=== PATIENT | female | born 1950 | race Caucasian/White ===

== ENCOUNTER 2020-07-16 16:57 | Outpatient (CLI) | payer BC, MEDICARE, SELFPAY | END 2020-07-16 16:58 | disposition home or self-care (01) | LOC: LAB 17:00 | PROVIDERS: Visit Provider Nurse Practitioner Family | DX: N30.01 Acute cystitis with hematuria (principal) | CPT/HCPCS: 87086 ==

== ENCOUNTER 2020-12-08 11:31 | Inpatient (IN) | payer BC, MEDICARE, SELFPAY ==
[2020-12-08] VITALS (22 sets, daily range): BP systolic 112–191; BP diastolic 75–112; PULSE 84–128; RESP 16–22; TEMP 36.4–36.8; O2SAT 91–99; BMI 41.0
--- NOTE | 2020-12-08 | SCC_ITS ---
Procedure Done: 1. Cystoscopy, LEFT: Retrograde, ureteroscopy, laser, stent 42.6 seconds of fluoroscopic guidance, for a cumulative dose of 23.88 mGy, was provided to Dr. Araujo by the radiology department. C-arm images of the abdomen were saved for the patient's permanent record. [facility]
--- NOTE | 2020-12-08 11:49 | CTR_ITS ---
PROCEDURE INFORMATION: Exam: CT Abdomen And Pelvis Without Contrast Exam date and time: 12/08/2020 12:35 PM Age: 70 years old Clinical indication: Abdominal pain; Left; Prior surgery; Surgery date: 6+ months; Surgery type: Appy; Patient HX: C/O L flank pain and hematuria; Additional info: Left flank pain. Hematuria TECHNIQUE: Imaging protocol: Computed tomography of the abdomen and pelvis without contrast. Radiation optimization: All CT scans at this facility use at least one of these dose optimization techniques: automated exposure control; mA and/or kV adjustment per patient size (includes targeted exams where dose is matched to clinical indication); or iterative reconstruction. COMPARISON: No relevant prior studies available. RADIATION DOSE METRICS: Total DLP (mGy-cm): 1773.37 FINDINGS: Lungs: There is mosaic pattern of attenuation of the lungs with paraseptal thickening at the lung bases, suggestive of mild pulmonary edema. Pneumonia should be excluded clinically. Heart: Mildly enlarged heart. Coronary atherosclerotic calcifications seen. No pericardial effusion. Liver: Normal. No mass. Gallbladder and bile ducts: Multiple gallstones are present. No pericholecystic inflammatory changes to suggest cholecystitis. Pancreas: Normal. No ductal dilation. Spleen: Normal. No splenomegaly. Adrenal glands: Normal. No mass. Kidneys and ureters: Tiny cortical calcifications noted in the right lower kidney. There is a 0.4 cm obstructing stone in the left distal ureter, resulting in mild hydroureteronephrosis and stranding of the surrounding fat. An additional nonobstructing stone measuring 0.2 cm is seen in the left lower kidney. Stomach and bowel: There is diverticulosis without evidence of diverticulitis. Appendix: There has been an appendectomy. Intraperitoneal space: Unremarkable. No free air. No significant fluid collection. Vasculature: Mild diffuse atherosclerotic disease is present. Lymph nodes: Unremarkable. No enlarged lymph nodes. Urinary bladder: Unremarkable as visualized. Reproductive: Unremarkable as visualized. Bones/joints: Degenerative changes of the spine seen. Old healed fracture deformity of the left inferior pubic ramus noted. Soft tissues: A small fat containing umbilical hernia is present. CT/CT kidney stone [id number] IMPRESSION: Obstructing stone in the left distal ureter, resulting in mild hydronephrosis. Radiation Dose CTDIVOL = (mGy): DLP = 1773.37 (mGy-cm)
--- NOTE | 2020-12-08 11:52 | ECG_ITS ---
[facility] Test Date: 2020-12-08 Pat Name: Bailey Gayle Department: Room: Gender: Female Line Fisher: : 1950 Requested By: Ortiz Agustin Order Number: [id number] Danuta MD: PETER ORTIZ Measurements Intervals [place] Rate: 98 P: MD: QRS: -12 QRSD: 98 T: 20 QT: 333 QTc: 426 Interpretive Statements SINUS RYTHM ABNORMAL RHYTHM ECG Compared to ECG 04/19/2018 09:39:43 NO CHCANGE Electronically Signed On 12-08-2020 21:17:03 GROUNDS AND NURSERY SPECIALIST by PETER ORTIZ [id number]
--- NOTE | 2020-12-08 11:54 | ED_ITS ---
HPI - Abdominal Pain General: Chief Complaint: Abdominal Pain Stated Complaint: Blood in Urine/ Pain on lt side Time Seen by Provider: 12/08/20 11:44 History of Present Illness: HPI narrative: The patient is a 70-year-old female who comes to the ER complaining of hematuria since last night and nausea and vomiting as well as left flank pain. She has had UTIs multiple times with hematuria in the past. This morning she took a ciprofloxacin to try to help but she began to feel nauseous and vomit. She took her blood pressure medicines this morning but says her blood pressure was elevated and knew she had to come to the ER. Denies chest pain and shortness of breath. She also has A. fib and takes Johan DIAZ elicited complaint: abdominal pain Pertinent past history: past UTI Pain Consistency: constant Location: L flank Severity: similar to previous episodes Quality: sharp Radiation: L flank Exacerbating factors: nothing Associated Symptoms: Reports nausea and vomiting Review of Systems General: Reports: 10 or more systems reviewed and unremarkable except in HPI and below Const: Denies: fatigue Eyes: Denies: change in vision, blurry vision or eye redness ENMT: Denies: throat pain, swelling of lips/tongue, ear or mastoid pain or nasal congestion Card: Denies: chest pain, palpitations, irregular heart rhythm, edema, dyspnea on exertion or orthopnea Resp: Denies: dyspnea, productive cough or non-productive cough GI: Reports: nausea and vomiting : Reports: flank pain; Denies: difficulty voiding, urinary frequency or urinary urgency Musc: Denies: neck pain, back pain, extremity pain, joint pain, joint redness, limited range of motion or muscle weakness Skin/Breast: Denies: rash, pruritus, erythema, skin pain or skin tenderness Neuro: Denies: headache(s), numbness in extremities, weakness in extremities, sensory changes, difficulty walking, dizziness, confusion or Slurred speech present Psych: Denies: anxiety or depression Endo: Denies: polyuria All/Imm: Denies: urticaria, throat swelling or tongue swelling Physical Exam Const: COMMON NORMALS: no acute distress, average body habitus, patient oriented x3, no limitations, healthy appearing, alert and well nourished GENERAL APPEARANCE: cooperative, comfortable, well kempt and well developed ORIENTATION/CONSCIOUSNESS: Yes awake, Yes oriented to person, Yes oriented to place and Yes oriented to time HENMT: COMMON NORMALS: normocephalic, external ears normal and Normal external nose present HEAD & SCALP: normal to inspection and normocephalic NOSE: Normal external nose present EXTERNAL EAR: Yes external ears normal MOUTH: Normal oral and palatal mucosa present THROAT: posterior oropharynx normal Eye: COMMON NORMALS: Equal, round and reactive pupils present and EOMs intact bilaterally GENERAL EYE: appearance normal, both eyes and all related structures PUPIL: Yes Equal, round and reactive pupils present Neck/C-Spine: COMMON NORMALS: full ROM, no lymphadenopathy, no meningeal signs and no JVD GENERAL: Yes normal visual inspection Lymph: LYMPHATIC: no lymphadenopathy noted Chest: COMMONS NORMALS: normal inspection of the chest and normal palpation of entire chest wall Resp: COMMON NORMALS: normal respiratory effort, No retractions, No use of accessory muscles, clear to auscultation bilaterally and percussion normal EFFORT & INSPECTION: Yes able to speak in complete sentences AUSCULTATION: clear to auscultation bilaterally PERCUSSION: percussion normal Cardio: COMMON NORMALS: no JVD, regular rate, regular rhythm, S1 normal heart sound present, S2 normal heart sound present and Peripheral pulses 2+ throughout RATE: regular rate RHYTHM: regular rhythm HEART SOUNDS: S1 normal heart sound present and S2 normal heart sound present PERIPHERAL PULSES: Peripheral pulses 2+ throughout GI: COMMON NORMALS: Normal to inspection, nondistended, normoactive bowel sounds present, Soft to palpation, non-tender and no masses INSPECTION: Yes normal to inspection PALPATION: Yes Soft to palpation : OTHER: Tenderness to left flank. Back/Pelvis: COMMON NORMALS: thoracic and lumbar spine normal to inspection, no thoracic nor lumbar tenderness and thoraco-lumbar ROM normal Extremity: COMMON NORMALS: normal to inspection, full ROM, capillary refill normal, no joint enlargement and no pedal edema GENERAL: Yes normal exam except as noted Neuro: COMMON NORMALS: patient oriented x3, CN's II-XII intact bilaterally, moves all extremities, no focal motor deficits, no sensory deficits noted and gait normal SENSORIUM/ORIENTATION: Yes alert, Yes oriented to person, Yes oriented to place and Yes oriented to time MENINGEAL SIGNS: Yes no meningeal signs Psych: COMMON NORMALS: mental status grossly normal, Normal thought process present, cooperative, normal affect and speech normal APPEARANCE: Yes well kempt ATTITUDE: Yes calm SPEECH: Yes normal speech THOUGHT PROCESS: Normal thought process present Skin: COMMON NORMALS: no rashes or lesions noted GENERAL SKIN EXAM: no rashes or lesions noted Course Vital Signs: Vital signs: Vital Signs Temperature 97.5 F L 12/08/20 11:35 Pulse Rate 101 H 12/08/20 14:26 Respiratory Rate 18 12/08/20 14:26 Blood Pressure 150/85 12/08/20 14:26 Pulse Oximetry 99 12/08/20 14:26 MDM - Abdominal Pain MDM Narrative: Medical decision making narrative: The patient comes in and complains of significant left flank pain. She does have a 4 mm distal ureteral stone. Also significant lab abnormalities white count 16.3, creatinine 1.1, BUN 33, lactic acidosis at 4.3. She also has felt so nauseous and had episodes where she dips down to 80% saturation on room air. She was placed on 2 L nasal cannula oxygen and has been fine. Discussed with Dr. Guerrero who will accept to the CSU. Dr. Araujo will follow this patient upstairs. Lab Data: Labs: Lab Results 12/08/20 12/08/20 12/08/20 Range/Units 12:27 12:38 12:38 WBC (4.0-10.0) 10^3/ uL RBC (4.1-5.3) 10^6/u L Hgb (11.5-15.3) g/dL Hct (37.0-47.0) % MCV (81-99) fL MCH (28.0-34.0) pg MCHC (30.0-36.0) g/dL RDW (12.1-15.1) % Plt Count (130-400) 10^3/c mm MPV (7.4-10.4) fL Neut % (Auto) % Lymph % (Auto) % Barn[place] % (Auto) % Eos % (Auto) % Baso % (Auto) % Neut # (Auto) (1.8-7.7) 10^3/u L Lymph # (Auto) (0.8-4.8) 10^3/u L Barnwell # (Auto) (0.2-0.9) 10^3/u L Eos # (Auto) (0.0-0.8) 10^3/u L Baso # (Auto) (0.0-0.1) 10^3/u L Nucleated RBC % (a uto) % Nucleated RBCs # /100WBC Sodium 139 (136-145) mmol/L Potassium 4.1 (3.5-5.1) mmol/L Chloride 102 (98-107) mmol/L Carbon Dioxide 19 L (22-29) mmol/L Anion Gap 22.1 H (5-19) BUN 33 H (8-23) mg/dL Creatinine 1.1 H (0.5-0.9) mg/dL GFR Calculation 49.4 L (90-130) mL/min Glucose 186 H (65-115) mg/dL Calculated Osmolal ity 300 H (285-295) mOsm/k g Lactate 4.3 H* (0.5-2.2) mmol/L Calcium 9.4 (8.5-10.5) mg/dL Total Bilirubin 0.5 (0.15-1.2) mg/dL AST 28 (0-32) U/L ALT 39 H (0-33) U/L Alkaline Phosphata se 94 (35-105) IU/L Total Protein 7.4 (6.6-8.7) g/dL Albumin 4.1 (3.5-5.2) g/dL Globulin 3.3 (1.3-4.6) g/dL Lipase 74 H (13-60) U/L Urine Color [place] (Yellow) Urine Appearance Sl hazy (CLEAR) Urine pH 5 (5-7) Ur Specific Gravit y 1.020 (1.005-1.030) Urine Protein TNP Urine Glucose (UA) TNP Urine Ketones TNP Urine Blood TNP Urine Nitrate TNP Urine Bilirubin TNP Prot Sulfosalicyli c Acd Positive (Negative) Urine Urobilinogen TNP Ur Leukocyte Danae ase TNP Urine RBC >100 H (0-2) /hpf Urine WBC 5-10 H (0-5) /hpf Ur Squamous Epith Cells None (0-5) /hpf Amorphous Sediment Not Reportable Urine Bacteria 2+ H (NONE) /hpf 12/08/20 Range/Units 13:10 WBC 16.3 H (4.0-10.0) 10^3/ uL RBC 4.26 (4.1-5.3) 10^6/u L Hgb 12.6 (11.5-15.3) g/dL Hct 39.8 (37.0-47.0) % MCV 93.4 (81-99) fL MCH 29.6 (28.0-34.0) pg MCHC 31.7 (30.0-36.0) g/dL RDW 16.8 H (12.1-15.1) % Plt Count 305 (130-400) 10^3/c mm MPV 9.8 (7.4-10.4) fL Neut % (Auto) 76.1 % Lymph % (Auto) 12.3 % [place] % (Auto) 6.3 % Eos % (Auto) 0.3 % Baso % (Auto) 0.6 % Neut # (Auto) 12.42 H (1.8-7.7) 10^3/u L Lymph # (Auto) 2.0 (0.8-4.8) 10^3/u L Barn[place] # (Auto) 1.0 H (0.2-0.9) 10^3/u L Eos # (Auto) 0.1 (0.0-0.8) 10^3/u L Baso # (Auto) 0.1 (0.0-0.1) 10^3/u L Nucleated RBC % (a uto) 0 % Nucleated RBCs # 0.0 /100WBC Sodium (136-145) mmol/L Potassium (3.5-5.1) mmol/L Chloride (98-107) mmol/L Carbon Dioxide (22-29) mmol/L Anion Gap (5-19) BUN (8-23) mg/dL Creatinine (0.5-0.9) mg/dL GFR Calculation (90-130) mL/min Glucose (65-115) mg/dL Calculated Osmolal ity (285-295) mOsm/k g Lactate (0.5-2.2) mmol/L Calcium (8.5-10.5) mg/dL Total Bilirubin (0.15-1.2) mg/dL AST (0-32) U/L ALT (0-33) U/L Alkaline Phosphata se (35-105) IU/L Total Protein (6.6-8.7) g/dL Albumin (3.5-5.2) g/dL Globulin (1.3-4.6) g/dL Lipase (13-60) U/L Urine Color (Yellow) Urine Appearance (CLEAR) Urine pH (5-7) Ur Specific Gravit y (1.005-1.030) Urine Protein Urine Glucose (UA) Urine Ketones Urine Blood Urine Nitrate Urine Bilirubin Prot Sulfosalicyli c Acd (Negative) Urine Urobilinogen Ur Leukocyte Danae ase Urine RBC (0-2) /hpf Urine WBC (0-5) /hpf Ur Squamous Epith Cells (0-5) /hpf Amorphous Sediment Urine Bacteria (NONE) /hpf Discharge Plan Discharge Patient Disposition: Admitted As Inpatient Clinical Impression: Ureterolithiasis, Acidosis, lactic, Acute kidney injury Condition: Stable Coding Level of Care Code 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
[2020-12-08] MEDS: cloNIDine 0.1 mg Tablet PO (12:14)
[2020-12-08] MEDS: ondansetron 2 mg/ML SDV 2 mL 4 MG IVP ×2 (12:35→16:25)
[2020-12-08] MEDS: sodium chloride 0.9% 1,000 ML 999 ML IV (12:36)
[2020-12-08] MEDS: levofloxacin-dextrose 5 % 500 MG/100 ML PREMIX 100 MG IV (12:39)
[2020-12-08 13:16] LABS: Basophils # 0.1 10^3/uL (0.0-0.1); Basophils % 0.6 %; Eosinophils # 0.1 10^3/uL (0.0-0.8); Eosinophils % 0.3 %; Hematocrit 39.8 % (37.0-47.0); Hemoglobin 12.6 g/dL (11.5-15.3); Lymphocytes % 12.3 %; Mean Corpuscular HGB Conc 31.7 g/dL (30.0-36.0); Mean Corpuscular Hemoglobin 29.6 pg (28.0-34.0); Mean Corpuscular Volume 93.4 fL (81-99); Mean Platelet Volume 9.8 fL (7.4-10.4); Monocytes % 6.3 %; Neutrophils # 12.42 10^3/uL (1.8-7.7); Neutrophils % 76.1 %; Nucleated Red Blood Cells % 0 %; Platelet Count 305 10^3/cmm (130-400); Red Blood Count 4.26 10^6/uL (4.1-5.3); Red Cell Distribution Width 16.8 % (12.1-15.1); White Blood Count 16.3 10^3/uL (4.0-10.0)
[2020-12-08] MEDS: promethazine 25 mg/mL SDV 1 mL IM (13:17)
[2020-12-08 13:28] LABS: Urine Appearance SL Hazy (CLEAR); Urine Color Orange (Yellow); pH Urine 5 (5-7)
[2020-12-08 13:30] LABS: Add Urine Microscopic? YES; Sulfosalicylic Acid Urine Positive (Negative)
[2020-12-08 13:31] LABS: Add Urine Culture? Yes; Bacteria Urine 2+ /hpf; RBC Urine >100 /hpf (0-2)
[2020-12-08 13:38] LABS: Alanine Aminotransferase 39 U/L (0-33); Albumin Level 4.1 g/dL (3.5-5.2); Alkaline Phosphatase 94 IU/L (35-105); Aspartate Amino Transferase 28 U/L (0-32); Blood Urea Nitrogen 33 mg/dL (8-23); Calcium 9.4 mg/dL (8.5-10.5); Carbon Dioxide 19 mmol/L (22-29); Chloride 102 mmol/L (98-107); Globulin 3.3 g/dL (1.3-4.6); Glomerular Filtration Rate 49.4 mL/min (90-130); Glucose 186 mg/dL (65-115); Lipase 74 U/L (13-60); Osmolality Calculated 300 mOsm/kg (285-295); Sodium 139 mmol/L (136-145); Total Bilirubin 0.5 mg/dL (0.15-1.2); Total Protein 7.4 g/dL (6.6-8.7)
[2020-12-08 13:47] LABS: Anion Gap 22.1 (5-19); Potassium 4.1 mmol/L (3.5-5.1)
[2020-12-08 13:49] LABS: Lactate (Lactic Acid level) 4.3 mmol/L (0.5-2.2)
[2020-12-08] MEDS: morphine 4 mg/mL SDV 1 mL 2 MG IVP ×3 (14:43→23:48)
--- NOTE | 2020-12-08 14:48 | P.HP_ITS ---
Providers/Chief Complaint Admitting Physician: Thai Guerrero Chief Complaint: Blood in Urine/ Pain on lt side History of Present Illness Bailey Gayle is a 70 year old female with PMH of DM ,HTN, Hypothyroidism,2nd ry adrenal insufficiency s/p Pituitary recestion for pituitary tumor came in with c/o not felling well since yesterday by the evening she started having hematuria as well as nausea she also started having left lower flank pain which was radiating to her lt groin. Upon arrival in the ER she was worked up for above mention complain. Imaging studies: C.T abdomen and Pelvis : Kidneys and ureters: Tiny cortical calcifications noted in the right lower kidney. There is a 0.4 cm obstructing stone in the left distal ureter, resulting in mild hydroureteronephrosis and stranding of the surrounding fat. An additional nonobstructing stone measuring 0.2 cm is seen in the left lower kidney. EKG: ATRIAL FIBRILLATION , Rate: 98 Pertinent Labs : WBC: 16.3 , Lactate : 4.3 , Lipase: 74 Urine analysis : Urine RBC: >100, Urine WBC: 5-10 ECA Medications: 1 L normal saline , Levofloxacin 750 MG I.V * 1 DOSE Urology was consulted by Review of Systems Const: Denies: fever(s), chills, body aches, change in appetite or diaphoresis Card: Denies: palpitations, edema, swelling of feet/ankles, dyspnea on exertion, orthopnea or leg pain with exertion Resp: Denies: dyspnea, productive cough, wheezing or pain on inspiration GI: Denies: abdominal pain, vomiting, diarrhea or constipation Musc: Denies: extremity pain or extremity swelling Neuro: Denies: headache(s), difficulty walking or confusion Medications/Allergies Home Medications Medication Instructions Recorded Confirmed Last Taken Type Urinary Pain Relief See Rx Instructions .ROUTE .COMPLEX 12/08/20 12/08/20 12/08/20 History Vitamin D3 1 tab PO DAILY@0600 12/08/20 12/08/20 12/08/20 History apixaban [Eliquis] 5 mg PO BID@0600,1800 12/08/20 12/08/20 12/08/20 History atorvastatin 40 mg PO DAILY@1800 12/08/20 12/08/20 12/07/20 History glipizide 5 mg PO DAILY 12/08/20 12/08/20 12/07/20 History irbesartan-hydrochlorothiazide 1 tab PO DAILY@0600,1800 12/08/20 12/08/20 12/08/20 History levothyroxine 125 mcg PO DAILY@0600 12/08/20 12/08/20 12/08/20 History metformin 1,000 mg PO BID@0600,1800 12/08/20 12/08/20 12/08/20 History metoprolol tartrate 25 mg PO BID@0600,1800 12/08/20 12/08/20 12/08/20 History prednisone See Rx Instructions .ROUTE .COMPLEX 12/08/20 12/08/20 12/08/20 Hi story Allergies Allergy/AdvReac Type Severity Reaction Status Date / Time RAFA Inhibitors Allergy Unknown Unknown Verified 01/22/20 12:02 Vitals/I&O/Wt Last Vital Signs Temp 97.5 F L 12/08/20 11:35 Pulse 95 12/08/20 14:47 Resp 20 H 12/08/20 14:47 BP 134/90 12/08/20 14:47 Pulse Ox 96 12/08/20 14:47 12/07/20 12/08/20 12/08/20 22:59 06:59 14:59 Intake Total 100 / 100 Balance 100 / 100 Weight last 48 hrs Weight 95.254 kg Physical Exam Const: COMMON NORMALS: patient oriented x3 HENMT: COMMON NORMALS: normocephalic, atraumatic and external ears normal HEAD & SCALP: normocephalic and atraumatic Resp: COMMON NORMALS: normal respiratory effort and clear to auscultation bilaterally EFFORT & INSPECTION: Yes symmetric chest movement AUSCULTATION: clear to auscultation bilaterally Cardio: COMMON NORMALS: regular rate, regular rhythm, S1 normal heart sound present, S2 normal heart sound present, No gallops present (Cardio), No murmurs present (Cardio), No rub (Cardio) and Peripheral pulses 2+ throughout RATE: regular rate RHYTHM: regular rhythm HEART SOUNDS: S1 normal heart sound present and S2 normal heart sound present PERIPHERAL PULSES: Peripheral pulses 2+ throughout GI: COMMON NORMALS: Soft to palpation and non-tender AUSCULTATION: Yes normoactive bowel sounds PALPATION: Yes Soft to palpation and Yes No hepatosplenomegaly present RECTAL EXAM: deferred : OTHER: Lt CVA Tenderness Extremity: COMMON NORMALS: no clubbing, cyanosis or edema and no pedal edema Neuro: COMMON NORMALS: patient oriented x3 Data : 12/08/20 13:10 12/08/20 12:38 A&P Assessment and plan (1) Sepsis: Uro Sepsis WBC: 16.3 , Lactate : 4.3,Tachycardia, and a source Blood culture Urine Culture Repeat Lactic acid Appreciate Urology rec Ceftriaxone 2gm q24 h daily I.V Hydration Pain Control Status: Acute (2) Acute pyelonephritis: Plan 1 Status: Acute (3) UTI (urinary tract infection): Status: Acute (4) Ureterolithiasis: Status: Acute (5) Acute kidney injury: Baseline SCR is unknown Current SCR : 1.1 Monitor BMP Contnue I.V Hydration Status: Acute (6) Atrial fibrillation: Currently rate controlled. Continue M.T 25 MG PO BID Continue Eliquis Status: Acute (7) HTN (hypertension): Status: Acute (8) Diabetes: LDSSI FSG Status: Acute (9) Hypothyroidism: Levothyroxine 125mcg po daily Status: Acute (10) Adrenal insufficiency: 2ndry Adrenal Insufficiency: Prednisone 5 mg PO Daily am and 2.5 mg po evening Status: Acute (11) HEATHER (obstructive sleep apnea): CPAP at night Status: Acute Additional A&P Information DVT PPX: Eliquis Code Status:Full code Disposition :Home Attestations Medical Necessity Statement*: Patient needs to be in hospital for the management of Urosepsis.Anticipated LOS greater then 2 midnights. 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
[2020-12-08] MEDS: cefTRIAXone 2,000 MG in sodium chloride 0.9% (plus) 50 ML 100 MG IV (15:22)
--- NOTE | 2020-12-08 15:22 | P.CONIM_ITS ---
Providers/Reason For Consult Consulting Physican/Specialty*: Urology/Araujo Reason for Consult*: Obstructing left distal ureteral stone with concern for sepsis History of Present Illness History of Present Illness Bailey Gayle is a 70 year old female who presented to the emergency department was discovered to have an obstructing 4 mm left distal ureteral stone complicated by evidence of UTI possible sepsis. Last night she started having some urgency and frequency and discomfort in the bladder area. She took some Azo-Standard. Additional symptoms included left flank pain, gross hematuria, malaise. Further complicating the scenario is that she has chronic adrenal insufficiency and is on steroid replacement therapy. EKG today showed atrial fibrillation. She is on chronic Eliquis. Initial plans were to place her on the hospitalist service for observation due to chronic kidney disease, poor control of pain etc. but with evidence of infection and obstruction I was consulted and recommended emergent stent placement. We also reviewed the possibility of trying to go after the stone if everything goes very well hemodynamically at time of the procedure but with any concerns simply place a stent and deal with the stone later. All of this was explained in detail to the patient and her son. Review of Systems Const: Reports: malaise; Denies: fever(s) or chills Eyes: Denies: change in vision or blurry vision ENMT: Denies: throat pain Card: Denies: chest pain or palpitations Resp: Denies: dyspnea, productive cough or wheezing GI: Reports: abdominal pain and nausea; Denies: coffee ground emesis : Reports: flank pain, dysuria, urinary frequency and urinary urgency Musc: Denies: joint redness or joint warmth Skin/Breast: Denies: rash or pruritus Neuro: Denies: headache(s), confusion, Slurred speech present or seizure-like activity Psych: Denies: anxiety or memory loss Endo: Denies: polyuria or flushing Johnnie/Lymph: Denies: easy bruising or easy bleeding All/Imm: Denies: urticaria or acute wheezing Meds/Allergies Home Medications and Allergies Home Medications Medication Instructions Recorded Confirmed Last Taken Type Urinary Pain Relief See Rx Instructions .ROUTE .COMPLEX 12/08/20 12/08/20 12/08/20 History Vitamin D3 1 tab PO DAILY@0600 12/08/20 12/08/20 12/08/20 History apixaban [Eliquis] 5 mg PO BID@0600,1800 12/08/20 12/08/20 12/08/20 History atorvastatin 40 mg PO DAILY@1800 12/08/20 12/08/20 12/07/20 History glipizide 5 mg PO DAILY 12/08/20 12/08/20 12/07/20 History irbesartan-hydrochlorothiazide 1 tab PO DAILY@0600,1800 12/08/20 12/08/20 12/08/20 History levothyroxine 125 mcg PO DAILY@0600 12/08/20 12/08/20 12/08/20 History metformin 1,000 mg PO BID@0600,1800 12/08/20 12/08/20 12/08/20 History metoprolol tartrate 25 mg PO BID@0600,1800 12/08/20 12/08/20 12/08/20 History prednisone See Rx Instructions .ROUTE .COMPLEX 12/08/20 12/08/20 12/08/20 History Allergies Allergy/AdvReac Type Severity Reaction Status Date / Time RAFA Inhibitors Allergy Unknown Unknown Verified 01/22/20 12:02 PFSH Acute PFSH: Medical History (Updated 12/08/20 @ 18:37 by Milton Araujo MD) Acute kidney injury Adrenal insufficiency Atrial fibrillation Diabetes Hypothyroidism HEATHER (obstructive sleep apnea) Surgical History (Updated 12/08/20 @ 18:41 by Milton Araujo MD) History of appendectomy History of cataract surgery Family History (Updated 12/08/20 @ 18:41 by Milton Araujo MD) Other CAD (coronary artery disease) Diabetes Social History (Updated 12/08/20 @ 18:40 by Milton Araujo MD) Smoking and tobacco status: never smoked Alcohol intake: never Marital status: / Vitals/I&O/Wt Last Vital Signs Temp 97.5 F L 12/08/20 11:35 Pulse 95 12/08/20 14:47 Resp 20 H 12/08/20 14:47 BP 134/90 12/08/20 14:47 Pulse Ox 96 12/08/20 14:47 12/08/20 12/08/20 12/08/20 06:59 14:59 22:59 Intake Total 100 / 100 Balance 100 / 100 Weight last 48 hrs Weight 210 lb Physical Exam Const: COMMON NORMALS: no acute distress, alert and well nourished GENERAL APPEARANCE: cooperative, well kempt, well developed and ill appearing ORIENTATION/CONSCIOUSNESS: not confused OTHER: Truncal obesity HENMT: COMMON NORMALS: normocephalic and atraumatic HEAD & SCALP: normocephalic and atraumatic Eye: COMMON NORMALS: conjunctivae normal and no scleral icterus CON JUNCTIVA: Yes conjunctivae normal Neck/C-Spine: COMMON NORMALS: full ROM and no JVD GENERAL: Yes normal visual inspection Lymph: LYMPHATIC: no lymphadenopathy noted and no lymphedema noted Chest: CHEST: Yes Symmetrical chest wall rise Resp: COMMON NORMALS: normal respiratory effort EFFORT & INSPECTION: No labored and No Actively coughing Cardio: COMMON NORMALS: no JVD, regular rate and No murmurs present (Cardio) RATE: regular rate GI: COMMON NORMALS: Soft to palpation PALPATION: Yes Soft to palpation and Yes Tenderness to palpation present (GI) Details: LLQ and LUQ : COMMON NORMALS: Yes normal external appearance and Yes normal appearance of the vagina BLADDER/KIDNEY EXAM: Yes CVA tenderness EXTERNAL FEMALE EXAM: Yes normal appearance of the urethra Back/Pelvis: GENERAL BACK: Yes CVA tenderness CVA tenderness: left Extremity: COMMON NORMALS: no clubbing, cyanosis or edema Neuro: COMMON NORMALS: no focal motor deficits SENSORIUM/ORIENTATION: Yes alert Psych: COMMON NORMALS: mental status grossly normal APPEARANCE: Yes grossly normal and Yes well kempt ATTITUDE: Yes calm and Yes engaged Skin: COMMON NORMALS: no rashes or lesions noted and no jaundice GENERAL SKIN EXAM: no rashes or lesions noted Data Other Data: Attestation for Other Data: I personally reviewed and interpreted the following: Other data: CT scan A&P Assessment and plan (1) Acute pyelonephritis: White count 16, too numerous to count white cells, lactic acid of 4+ complicated by obstructing left distal ureteral stone with obstruction. Status: Acute (2) Ureterolithiasis: 4 mm left distal ureteral stone with obstruction. To the operating room emergently for stent placement, possible ureteroscopy stone extraction pending hemodynamic status at that time. Status: Acute (3) Atrial fibrillation: Status: Acute (4) Adrenal insufficiency: Status: Acute (5) Diabetes: Status: Acute (6) HTN (hypertension): Status: Acute (7) Acidosis, lactic: Status: Acute (8) Acute kidney injury: Status: Acute (9) HEATHER (obstructive sleep apnea): Status: Acute (10) Sepsis: Status: Acute Consult Attestations Medical Necessity Statement: Requires emergency surgical intervention for obstructing left distal ureteral stone with evidence of infection. Coding Level of Care Code Acute Criminology Professor for [facility] Fwd Diagnoses Acute pyelonephritis N10 Ureterolithiasis N20.1 Atrial fibrillation I48.91 Adrenal insufficiency E27.40 Diabetes E11.9 HTN (hypertension) I10 Acidosis, lactic E87.2 Acute kidney injury N17.9 HEATHER (obstructive sleep apnea) G47.33 Sepsis A41.9
--- NOTE | 2020-12-08 16:00 | ANES.PREANE2 ---
Pre-Anesthetic Assessment Pre-Anesthetic Assessment: Height/Weight: Height 1.52 m Weight 95.254 kg Temp Pulse Resp BP Pulse Ox 97.5 F L 95 20 H 134/90 96 12/08/20 11:35 12/08/20 14:47 12/08/20 14:47 12/08/20 14:47 12/08/20 14:47 Preop Diagnosis: Utereteral stone Proposed Procedure: Operation Date: 12/08/20 17:00 Proposed Procedures p Cystoscopy(Not Applicable) - Milton Araujo MD s Ureteral Stent Placement(Not Applicable) - Milton Araujo MD Familial anesthetic complications: None Last intake: NPO > 8 hrs Social: Social History: No alcohol and No tobacco Exam: Pre-Anes Outpt Exam: alert, oriented x 3, clear to auscultation bilaterally and regular rate & rhythm Airway: MP: 4 Dentition: Full Additional comments: poor mouth opening, large neck Pulmonary: Pulmonary: Sleep apnea CV/HEM: CV/HEM: Afib (on eliquis) and HTN Metabolic: Metabolic: DM, Morbid obesity and Thyroid Comments: pituitary --> adrenal insufficiency --> takes steroids Neuropsych: Neuropsych: Seizure Anesthetic Plan: ASA status: 4E Anesthesia: General Other: Patient was already given hydrocortisone 100 mg IV in the ER Risk of > 500 ml blood loss (7ml/kg in children): No Meds/Allergies Current Medications: Current Medications Generic Name Dose Route Start Last Admin Trade Name Freq PRN Reason Stop Dose Admin Ceftriaxone Sodium 2,000 mg/ 50 mls @ 100 mls/ hr 12/08/20 15:00 12/08/20 15:22 Sodium Chloride IV 100 mls/hr Q24H EARNEST Administration Protocol Data Anesthesia CBC & Chem 7: 12/08/20 13:10 12/08/20 12:38 Other Labs: Laboratory Results - last 48 hr 12/08/20 12/08/20 12/08/20 12:27 12:38 12:38 WBC RBC Hgb Hct MCV MCH MCHC RDW Plt Count MPV Neut % (Auto) Lymph % (Auto) [place] % (Auto) Eos % (Auto) Baso % (Auto) Neut # (Auto) Lymph # (Auto) [place] # (Auto) Eos # (Auto) Baso # (Auto) Nucleated RBC % (auto) Nucleated RBCs # Sodium 139 Potassium 4.1 Chloride 102 Carbon Dioxide 19 L Anion Gap 22.1 H BUN 33 H Creatinine 1.1 H GFR Calculation 49.4 L Glucose 186 H Calculated Osmolality 300 H Lactate 4.3 H* Calcium 9.4 Total Bilirubin 0.5 AST 28 ALT 39 H Alkaline Phosphatase 94 Total Protein 7.4 Albumin 4.1 Globulin 3.3 Lipase 74 H Urine Color [place] Urine Appearance Sl hazy Urine pH 5 Ur Specific [place] 1.020 Urine Protein TNP Urine Glucose (UA) TNP Urine Ketones TNP Urine Blood TNP Urine Nitrate TNP Urine Bilirubin TNP Prot Sulfosalicylic Acd Positive Urine Urobilinogen TNP Ur Leukocyte Esterase TNP Urine RBC >100 H Urine WBC 5-10 H Ur Squamous Epith Cells None Amorphous Sediment Not Reportable Urine Bacteria 2+ H 12/08/20 13:10 WBC 16.3 H RBC 4.26 Hgb 12.6 Hct 39.8 MCV 93.4 MCH 29.6 MCHC 31.7 RDW 16.8 H Plt Count 305 MPV 9.8 Neut % (Auto) 76.1 Lymph % (Auto) 12.3 [place] % (Auto) 6.3 Eos % (Auto) 0.3 Baso % (Auto) 0.6 Neut # (Auto) 12.42 H Lymph # (Auto) 2.0 [place] # (Auto) 1.0 H Eos # (Auto) 0.1 Baso # (Auto) 0.1 Nucleated RBC % (auto) 0 Nucleated RBCs # 0.0 Sodium Potassium Chloride Carbon Dioxide Anion Gap BUN Creatinine GFR Calculation Glucose Calculated Osmolality Lactate Calcium Total Bilirubin AST ALT Alkaline Phosphatase Total Protein Albumin Globulin Lipase Urine Color Urine Appearance Urine pH Ur Specific [place] Urine Protein Urine Glucose (UA) Urine Ketones Urine Blood Urine Nitrate Urine Bilirubin Prot Sulfosalicylic Acd Urine Urobilinogen Ur Leukocyte Esterase Urine RBC Urine WBC Ur Squamous Epith Cells Amorphous Sediment Urine Bacteria Micro: Microbiology 12/08/20 15:30 Blood Culture - Preliminary Blood SPECIMEN COLLECTED Cardiac Studies: No Data to Display
--- NOTE | 2020-12-08 16:01 | SC_ITS ---
WS: [id number] INTRAOPERATIVE TECHNIQUE: 4 Spot fluoroscopic images for intraoperative purposes. FLUOROSCOPY TIME: 42.6 seconds CLINICAL INFORMATION: ureter stent placement COMPARISON: None. FINDINGS: Left ureteroscopy with contrast injection filling defect consistent with calculus seen on the recent CT SC/C-arm [place] for Urology IMPRESSION: Images obtained for intraoperative purposes.
[2020-12-08] MEDS: hydrocortisone 100 mg/2 mL SDV IVP (16:20)
[2020-12-08] MEDS: sodium chloride 0.9% 1,000 ML 125 ML IV (16:27)
--- NOTE | 2020-12-08 16:51 | P.OP_ITS ---
Operative Report Date of procedure: December 08, 2020 Pre-op Diagnosis: Left distal ureteral stone with obstruction and UTI Post-op diagnosis: same Procedure Done: 1. Cystoscopy, LEFT: Retrograde, ureteroscopy, laser, stent Implants: 7 Israeli by 24 cm double-pigtail stent without string. Surgeon: Van Anesthesia: General Estimated blood loss: Minimal Urine output: Not measured Complications: None Condition: stable Disposition: PACU Brief History: Bailey is a very pleasant 70-year-old white female with multiple comorbidities, who I evaluated for the first time today at the request of the emergency department for concerns for possible obstructive pyelonephritis/sepsis. She was found to have a 4 mm obstructing left distal ureteral stone, too numerous to count white blood cells, lactic acid of 4+, and white count of 16,000. She had had typical renal colicky type symptoms along with lower urinary tract symptoms preceding the pain. Lower urinary tract symptoms included burning frequency urgency pressure. It was recommended that she go to the operating room emergently for stent placement and consideration intraoperatively for ureteroscopy stone extraction pending her hemodynamic status at the time. Procedure: After emergent evaluation examination and obtaining of informed consent she was taken to the operating suite on 12/08/2020 where general anesthesia was administered without difficulty after appropriate timeout was performed, SCDs confirmed to be functioning, preoperative antibiotics administered, beta-joslyn protocol confirmed. Prepped and draped in usual sterile fashion in dorsolithotomy position paying careful attention to avoiding pressure points. 21 Israeli cystoscope with 30 degree lens was introduced into the urethra meatus and advanced into the bladder under videoscopy. Bladder was systematically examined and found to be normal in its appearance. The urine was stained with Pyridium. There was no evidence of active or chronic cystitis. An 8 Israeli cone-tip catheter was intubated into the left ureteral orifice for retrograde contrast visualization of the left distal ureter. That was the extent of the contrast injection. The stone was encountered in the area exp ected and there also appeared to be a much larger filling defect in that area. The ureter proximal to that was dilated. A flexible tip guidewire was easily advanced beyond the stone. It curled in the area of the renal pelvis. An open-ended ureteral catheter was then advanced over the guidewire and the guidewire removed and a very small amount of contrast was injected just to confirm location of the renal pelvis. Wire was confirmed to be in appropriate position. The patient was hemodynamically stable. Because of her comorbidities it was decided to try and avoid a second operation at this time and therefore it was decided to make an attempt at this time. The distal ureter was dilated with a 15 Israeli 4 cm balloon with no waist. The wire was secured to the drapes as a safety wire and a 7.5 Israeli offset semirigid ureteroscope was advanced up the ureter. The area just below the location of the stone was significantly inflamed and a second guidewire was passed through the scope to help facilitate passage of the scope. The stone was encountered proximal to that point and that had migrated somewhat to about the level of the vessel crossing. It was secured in a grasping forceps and withdrawn but could not be easily passed through the impacted site. For that reason it was decided to fragment the stone with a 200 ?m thulium superpulse laser fiber. Again the patient was confirmed to be stable hemodynamically at this juncture. The stone was easily fragmented and the fragments removed with a small basket. On final inspection no other stone fragments of any consequence were identified. The impaction site certainly required a stent for healing. The bladder was drained with the scope. All small fragments were sent for pathologic evaluation. The cystoscope was then backloaded over the safety wire and a 7 Israeli by 24 cm double-pigtail stent was advanced over the guidewire through the cystoscope into appropriate position as confirmed via fluoroscopy and cystoscopy. A Mendez catheter was placed. She tolerated the procedure well without complications and was awakened in the operating room and returned to recovery room in stable condition. She was stable enough to not require ICU placement postoperatively. PLANS: 1. Medical management via hospitalist. 2. Maintain stent for least a couple weeks. Continue antibiotics until that point and then I will follow her up in my office with plans for stent removal.
[2020-12-08] MEDS: iohexol 300 mg/mL 50 mL Btl (OR ONLY) XX (18:00)
--- NOTE | 2020-12-08 18:47 | P.PCN_ITS ---
PACU note PACU note: VSS, Good respiratory effort, report to CLINICAL COUNSELOR Post-Anesthesia Exam: awake
--- NOTE | 2020-12-08 18:47 | PM.PACU ---
PACU note PACU note: VSS, Good respiratory effort, report to PEOPLE GREETER Post-Anesthesia Exam: awake
--- NOTE | 2020-12-08 19:15 | ANE.PACU2 ---
Inpatient post-anesthesia follow up: Airway intact: Yes Vital signs: Temperature 97.7 F Pulse Rate [Left] 95 Pulse Rate 96 Respiratory Rate 19 Blood Pressure [Le ft Arm] 191/102 Blood Pressure 98/53 Pulse Oximetry 91 Oxygen Delivery Me thod [ Nasal Cannula Current Rate & Del martha] Oxygen Delivery Me thod Room Air Oxygen Flow Rate [ Current Rate 2 & Delivery] Oxygen Flow Rate 2 Fraction of Inspir ed Oxygen Hydration adequate: Yes Nausea and vomiting: No Pain level: 3 Mental status: Baseline
[2020-12-08 22:15] LABS: Glucose Point of Care 174 mg/dL (70-110)
[2020-12-08] MEDS: predniSONE 5 mg Tablet 2.5 MG PO (22:54)
[2020-12-08] MEDS: atorvastatin 40 mg Tablet PO (22:54)
[2020-12-08] MEDS: metoprolol tartrate 25 mg Tablet PO (22:54)
[2020-12-08] MEDS: piperacillin-tazobactam 3.375 GM in sodium chloride 0.9% (plus) 50 ML IV (23:30)
[2020-12-09] VITALS (13 sets, daily range): BP systolic 94–107; BP diastolic 53–71; PULSE 89–106; RESP 16–22; TEMP 36.3–37; O2SAT 91–98
--- NOTE | 2020-12-09 00:07 | PC.PHAR ---
Vancomycin is dosed at 1250mg IVPB every 24 hours to produce a predicted trough level of 15.81 (population bsed pharmacokinetic analysis). A trough level has been ordered from the lab to be obtained before the fourth dose to confirm and adjust if needed.
[2020-12-09] MEDS: vancomycin 1,250 MG/250 ML PIGGYBACK 250 MG IV (03:11)
[2020-12-09 04:46] LABS: Basophils % 0.3 %; Eosinophils % 0.1 %; Hematocrit 32.5 % (37.0-47.0); Hemoglobin 10.2 g/dL (11.5-15.3); Lymphocytes # 2.3 10^3/uL (0.8-4.8); Lymphocytes % 17.1 %; Mean Corpuscular HGB Conc 31.4 g/dL (30.0-36.0); Mean Corpuscular Hemoglobin 29.4 pg (28.0-34.0); Mean Corpuscular Volume 93.7 fL (81-99); Mean Platelet Volume 9.8 fL (7.4-10.4); Monocytes # 0.8 10^3/uL (0.2-0.9); Monocytes % 6.4 %; Neutrophils # 9.73 10^3/uL (1.8-7.7); Neutrophils % 74.2 %; Nucleated Red Blood Cells % 0.2 %; Platelet Count 269 10^3/cmm (130-400); Red Blood Count 3.47 10^6/uL (4.1-5.3); Red Cell Distribution Width 17.1 % (12.1-15.1); White Blood Count 13.1 10^3/uL (4.0-10.0)
[2020-12-09 05:17] LABS: Lactic Sepsis W/Reflex 1.1 mmol/L (0.5-2.2)
[2020-12-09 05:30] LABS: Procalcitonin 0.09 ng/mL (0-0.5)
[2020-12-09 05:40] LABS: Alanine Aminotransferase 22 U/L (0-33); Albumin Level 2.9 g/dL (3.5-5.2); Alkaline Phosphatase 60 IU/L (35-105); Anion Gap 13.9 (5-19); Aspartate Amino Transferase 15 U/L (0-32); Blood Urea Nitrogen 27 mg/dL (8-23); Calcium 7.4 mg/dL (8.5-10.5); Carbon Dioxide 22 mmol/L (22-29); Chloride 107 mmol/L (98-107); Globulin 2.3 g/dL (1.3-4.6); Glomerular Filtration Rate 49.4 mL/min (90-130); Glucose 118 mg/dL (65-115); Osmolality Calculated 294 mOsm/kg (285-295); Potassium 3.9 mmol/L (3.5-5.1); Sodium 139 mmol/L (136-145); Total Bilirubin 0.4 mg/dL (0.15-1.2); Total Protein 5.2 g/dL (6.6-8.7)
[2020-12-09] MEDS: sodium chloride 0.9% 1,000 ML 125 ML IV ×2 (06:11→13:18)
[2020-12-09] MEDS: piperacillin-tazobactam 3.375 GM in sodium chloride 0.9% (plus) 50 ML IV ×3 (06:40→23:48)
[2020-12-09 06:41] LABS: Glucose Point of Care 102 mg/dL (70-110)
[2020-12-09] MEDS: metoprolol tartrate 25 mg Tablet PO ×2 (06:46→17:29)
[2020-12-09] MEDS: predniSONE 5 mg Tablet PO (06:46)
[2020-12-09] MEDS: levothyroxine 125 mcg Tablet PO (06:46)
--- NOTE | 2020-12-09 07:14 | P.PN_ITS ---
Subjective Subjective: Interval history: Urology follow-up Postoperative day #1 emergency stent placement with laser lithotripsy and treatment obstructing/impacted left distal ureteral stone. Data review: WBC decreased to 13.1. Creatinine stable at 1.1. T-max last night was 97.3. Blood pressure in the 90s. No respiratory distress. Feeling much better today. Nausea and vomiting completely went away after stent placement. Has tolerated p.o. intake well. Having some bladder spasms. She feels much relieved. From a urologic perspective as soon as her infection is adequately treated so that she can be placed on oral antibiotics she can be discharged with plans for follow-up in the clinic and eventually stent removal after adequate healing. Anticipate a couple weeks for that to occur given the impaction site being quite inflamed. Vitals/I&O/Wt Last Vital Signs Temp 97.9 F 12/09/20 06:41 Pulse 93 12/09/20 06:41 Resp 16 12/09/20 06:41 BP 97/58 12/09/20 06:41 Pulse Ox 98 12/09/20 06:41 12/08/20 12/09/20 12/09/20 22:59 06:59 14:59 Intake Total 1050 / 1150 1660 / 2810 Output Total 0 / 0 1300 / 1300 Balance 1050 / 1150 360 / 1510 Weight last 48 hrs Weight 210 lb Physical Exam Const: COMMON NORMALS: no acute distress, alert and well nourished GENERAL APPEARANCE: well kempt and well developed ORIENTATION/CONSCIOUSNESS: not confused Neck/C-Spine: COMMON NORMALS: full ROM Resp: COMMON NORMALS: normal respiratory effort EFFORT & INSPECTION: No labored and No Actively coughing Neuro: SENSORIUM/ORIENTATION: Yes alert Psych: COMMON NORMALS: mental status grossly normal APPEARANCE: Yes grossly normal and Yes well kempt ATTITUDE: Yes calm and Yes engaged Skin: COMMON NORMALS: no rashes or lesions noted and no jaundice GENERAL SKIN EXAM: no rashes or lesions noted Urinary Catheter Management^: Mendez: Cath Placed During This Visit: yes Reason for Continuing Indwelling Catheter: Perioperative Use in Selected Surgeries Urinary Catheter Date of Insertion: 12/08/20 Urinary Catheter Time of Insertion: 18:32 Data : 12/09/20 04:28 12/09/20 04:28 Micro: Microbiology 12/08/20 16:00 Blood Culture - Preliminary Blood SPECIMEN COLLECTED 12/08/20 15:30 Blood Culture - Preliminary Blood SPECIMEN COLLECTED A&P Assessment and plan (1) Acute pyelonephritis: Clinically improving temperature curve, white count decreasing etc. Status: Acute (2) Ureterolithiasis: Status post laser lithotripsy of the stone that was impacted in the left ureter. Stent placed and will need to stay in place for least a couple weeks for healing of the impaction site. Status: Acute (3) Acidosis, lactic: Status: Acute (4) Adrenal insufficiency: Status: Acute (5) Atrial fibrillation: Status: Acute (6) Sepsis: Status: Acute Attestations Medical Necessity Statement*: See attending. Coding Level of Care Code Acute Director Of Convention Services for [facility] Fwd Exam Detailed Diagnoses Acute pyelonephritis N10 Ureterolithiasis N20.1 Acidosis, lactic E87.2 Adrenal insufficiency E27.40 Atrial fibrillation I48.91 Sepsis A41.9 Time Spent (min) 35 Comment Total time on unit
--- NOTE | 2020-12-09 09:08 | PC.NURSE ---
NS order time changed. Over half the bag of IVF is currently remaining.
--- NOTE | 2020-12-09 09:29 | PC.CHAP ---
Pastoral Care Encounter/Spiritual Assessment Type of Contact [] Declined small engine technician visit [] Patient/Family/Request visit [] Outpatient visit [] Follow-up visit [] Physician referral [] Code/Alert [x] Routine visit [] Staff referral [] Actively dying [] Patient sleeping [] Family support [] [] Out of room [] Palliative care [] [] Receiving care in room [] Pre-surgical visit [] Trauma [] Long length of stay [] ICU visit [] Other: Relational/Emotional Strength [] Patient feels connected with others/family/visitors/staff [] Distress [] Loneliness/isolation [] Abandonment Spirituality of Patient [x] Person of Chanelle [x] Attends Mosque of their Chanelle [] Believes in Prayer [] Reads Bible or Congregational materials [] There are Spiritual issues to be addressed Mat Maker Interventions [x] Prayer [x] Active listening [] Non-anxious presence [] Spiritual/emotional support [] Crisis/trauma care [] Spiritual counseling [] Bereavement support [] Provided bereavement packet [] Provided Bible/devotional materials [] Provided toy/stuffed animal, coloring book to patient or family member [] Provided Communion [] Anointing/Fisher [] Salvation [x]x Completed spiritual assessment [] Other: Impact on Illness or Injury [] Angry [] Fearful [] Anxious [] Often cries [] Exhaustion [] Unable to work [] Unable to attend synagogue [] Unable to walk/stand [] Unable to read [] Unable to drive [] Unable to eat/drink [] Unable to sleep [] Unable to be with family [] Patient intubated [] Other: Summary patient feeling better Time spent with patient
[2020-12-09 10:44] LABS: Glucose Point of Care 153 mg/dL (70-110)
--- NOTE | 2020-12-09 11:25 | PC.NURSE ---
Patient is NPO, called Dr Araujo to see if any further procedures are scheduled to keep patient NPO. Per Dr Araujo, ok to order diet for patient. Per Dr Weinstein, order Const Carb diet. Destination Specialist put order in for diet.
[2020-12-09 17:16] LABS: Glucose Point of Care 116 mg/dL (70-110)
[2020-12-09] MEDS: predniSONE 5 mg Tablet 2.5 MG PO (17:29)
[2020-12-09] MEDS: atorvastatin 40 mg Tablet PO (17:29)
[2020-12-09 20:50] LABS: Glucose Point of Care 199 mg/dL (70-110)
--- NOTE | 2020-12-09 21:04 | PC.NURSE ---
THE PATIENT REPORTED SHE WAS HAVING SOME SHORTNESS OF BREATH WITH ACTIVITY. SHE STATES THIS IS NOT NORMAL FOR HER. THE PATIENT FEELS IT IS FROM THE AMOUNT OF IV FLUIDS SHE HAS RECEIVED. PHYSICIAN CALLED AND NOTIFIED OF PATIENT REQUEST AND VERBAL ORDER GIVEN TO DECREASE INFUSION RATE FROM 125 TO 50 ML/HR. PATIENT NOTIFIED AND REFUSES TO HAVE FLUIDS RUNNING. PHYSICIAN NOTIFIED THAT PATIENT IS REFUSING FLUIDS.
--- NOTE | 2020-12-09 21:54 | PM.PN ---
Subjective Subjective: Interval history: seen and examined at 10AM Feels better, pain improved. WBC trending down, afebrile Medications: Reviewed: Yes Vitals/I&O/Wt Last Vital Signs Temp 97.7 F 12/09/20 19:24 Pulse 96 12/09/20 19:24 Resp 19 H 12/09/20 19:24 BP 98/53 12/09/20 19:24 Pulse Ox 91 12/09/20 19:24 12/09/20 12/09/20 12/09/20 06:59 14:59 22:59 Intake Total 1660 / 2810 1179.583 / 9926.568 8765 / 2224.583 Output Total 1300 / 1300 800 / 800 700 / 1500 Balance 360 / 1510 379.583 / 379.583 345 / 724.583 Weight last 48 hrs Weight 95.254 kg Physical Exam Narrative: EXAM NARRATIVE: GEN: Awake, alert and oriented, no acute distress CVS: S1S2 N RS: CTA B/L Abd: Soft, nt/nd , bs+ IRON WORKER APPRENTICE: no focal neuro deficits Urinary Catheter Management^: Mendez: Cath Placed During This Visit: yes, but has since been removed by the nurse Reason for Continuing Indwelling Catheter: Decision to DC Catheter Urinary Catheter Date of Insertion: 12/08/20 Urinary Catheter Time of Insertion: 18:32 Date Urinary Catheter Removed: 12/09/20 Time Urinary Catheter Discontinued: 17:59 Data : 12/09/20 04:28 12/09/20 04:28 Micro: Microbiology 12/08/20 16:00 Blood Culture - Preliminary Blood NEGATIVE TO DATE 12/08/20 15:30 Blood Culture - Preliminary Blood NEGATIVE TO DATE 12/08/20 12:27 Urine Culture - Preliminary Urine,Clean Catch A&P Assessment and plan (1) Sepsis: Improving today leukocytosis trending down afebrile, hemodynamically stable sepsis from acute obstructive pyelonpehritis empiric zosyn to continue for now urine and blood cx pending d/c vancomycin Status: Acute (2) Acute pyelonephritis: Plan 1 Status: Acute (3) UTI (urinary tract infection): Status: Acute (4) Ureterolithiasis: s/p endoscopic removal Status: Acute (5) Acute kidney injury: Baseline SCR is unknown Current SCR : 1.1 Monitor BMP Contnue I.V Hydration Status: Acute (6) Atrial fibrillation: Currently rate controlled. Continue M.T 25 MG PO BID Continue Eliquis Status: Acute (7) HTN (hypertension): Status: Acute (8) Diabetes: LDSSI FSG Status: Acute (9) Hypothyroidism: Levothyroxine 125mcg po daily Status: Acute (10) Adrenal insufficiency: 2ndry Adrenal Insufficiency: Prednisone 5 mg PO Daily am and 2.5 mg po evening Status: Acute (11) HEATHER (obstructive sleep apnea): CPAP at night Status: Acute Additional A&P Information DVT PPX: Eliquis , on hold currently for hematuria Code Status:Full code Disposition :Home Attestations Medical Necessity Statement*: s/p urgent cytosocpy with stentingf or obstrcutive pyelonpehritis and resulting sepsis, needs iv antibiotics close monitoring of renal function Coding Level of Care Code Acute Multi Mission Helicopter Aircrewman for Chg Fwd Diagnoses Sepsis A41.9 Acute pyelonephritis N10 UTI (urinary tract infection) N39.0 Ureterolithiasis N20.1 Acute kidney injury N17.9 Atrial fibrillation I48.91 HTN (hypertension) I10 Diabetes E11.9 Hypothyroidism E03.9 Adrenal insufficiency E27.40 HEATHER (obstructive sleep apnea) G47.33
[2020-12-10] VITALS (10 sets, daily range): BP systolic 100–150; BP diastolic 59–88; PULSE 84–102; RESP 16–19; TEMP 36.3–36.6; O2SAT 81–97
[2020-12-10 02:42] LABS: Basophils # 0.1 10^3/uL (0.0-0.1); Basophils % 0.7 %; Eosinophils # 0.2 10^3/uL (0.0-0.8); Eosinophils % 1.6 %; Hematocrit 34.3 % (37.0-47.0); Hemoglobin 10.5 g/dL (11.5-15.3); Lymphocytes # 3.4 10^3/uL (0.8-4.8); Lymphocytes % 27.3 %; Mean Corpuscular HGB Conc 30.6 g/dL (30.0-36.0); Mean Platelet Volume 10.2 fL (7.4-10.4); Monocytes # 0.9 10^3/uL (0.2-0.9); Monocytes % 7.4 %; Neutrophils # 7.44 10^3/uL (1.8-7.7); Neutrophils % 60.8 %; Nucleated Red Blood Cells % 0.2 %; Platelet Count 269 10^3/cmm (130-400); Red Cell Distribution Width 17.6 % (12.1-15.1); White Blood Count 12.3 10^3/uL (4.0-10.0)
[2020-12-10 03:05] LABS: Alanine Aminotransferase 56 U/L (0-33); Alkaline Phosphatase 68 IU/L (35-105); Anion Gap 14.7 (5-19); Aspartate Amino Transferase 39 U/L (0-32); Blood Urea Nitrogen 30 mg/dL (8-23); Calcium 7.7 mg/dL (8.5-10.5); Carbon Dioxide 21 mmol/L (22-29); Chloride 110 mmol/L (98-107); Globulin 2.7 g/dL (1.3-4.6); Glomerular Filtration Rate 49.4 mL/min (90-130); Glucose 144 mg/dL (65-115); Osmolality Calculated 303 mOsm/kg (285-295); Potassium 3.7 mmol/L (3.5-5.1); Sodium 142 mmol/L (136-145); Total Bilirubin 0.5 mg/dL (0.15-1.2); Total Protein 5.7 g/dL (6.6-8.7)
[2020-12-10 06:10] LABS: Glucose Point of Care 106 mg/dL (70-110)
[2020-12-10] MEDS: metoprolol tartrate 25 mg Tablet PO (06:45)
[2020-12-10] MEDS: piperacillin-tazobactam 3.375 GM in sodium chloride 0.9% (plus) 50 ML IV (06:45)
[2020-12-10] MEDS: predniSONE 5 mg Tablet PO (06:45)
[2020-12-10] MEDS: levothyroxine 125 mcg Tablet PO (06:45)
--- NOTE | 2020-12-10 10:00 | PC.CHAP ---
Pastoral Care Encounter/Spiritual Assessment Type of Contact [] Declined nail technician visit [] Patient/Family/Request visit [] Outpatient visit [] Follow-up visit [] Physician referral [] Code/Alert [] Routine visit [] Staff referral [] Actively dying [] Patient sleeping [] Family support [] [] Out of room [] Palliative care [] [] Receiving care in room [] Pre-surgical visit [] Trauma [] Long length of stay [] ICU visit [] Other: Relational/Emotional Strength [] Patient feels connected with others/family/visitors/staff [] Distress [] Loneliness/isolation [] Abandonment Spirituality of Patient [] Person of Chanelle [] Attends Presybeterian of their Chanelle [] Believes in Prayer [] Reads Bible or Latter Day materials [] There are Spiritual issues to be addressed Tube Builder Airplane Interventions [] Prayer [] Active listening [] Non-anxious presence [] Spiritual/emotional support [] Crisis/trauma care [] Spiritual counseling [] Bereavement support [] Provided bereavement packet [] Provided Bible/devotional materials [] Provided toy/stuffed animal, coloring book to patient or family member [] Provided Communion [] Anointing/[place] [] Salvation [] Completed spiritual assessment [] Other: Impact on Illness or Injury [] Angry [] Fearful [] Anxious [] Often cries [] Exhaustion [] Unable to work [] Unable to attend yarsanism [] Unable to walk/stand [] Unable to read [] Unable to drive [] Unable to eat/drink [] Unable to sleep [] Unable to be with family [] Patient intubated [] Other: Summary Time spent with patient Pastoral Care Encounter/Spiritual Assessment Type of Contact [] Declined nail technician visit [] Patient/Family/Request visit [] Outpatient visit [] Follow-up visit [] Physician referral [] Code/Alert [x] Routine visit [] Staff referral [] Actively dying [] Patient sleeping [] Family support [] [] Out of room [] Palliative care [] [] Receiving care in room [] Pre-surgical visit [] Trauma [] Long length of stay [] ICU visit [] Other: Relational/Emotional Strength [] Patient feels connected with others/family/visitors/staff [] Distress [] Loneliness/isolation [] Abandonment Spirituality of Patient [x] Person of Chanelle [x] Attends Presybeterian of their Chanelle [] Believes in Prayer [] Reads Bible or Latter Day materials [] There are Spiritual issues to be addressed Tube Builder Airplane Interventions [x] Prayer [x] Active listening [] Non-anxious presence [] Spiritual/emotional support [] Crisis/trauma care [] Spiritual counseling [] Bereavement support [] Provided bereavement packet [] Provided Bible/devotional materials [] Provided toy/stuffed animal, coloring book to patient or family member [] Provided Communion [] Anointing/[place] [] Salvation [x] Completed spiritual assessment [] Other: Impact on Illness or Injury [] Angry [] Fearful [] Anxious [] Often cries [] Exhaustion [] Unable to work [] Unable to attend yarsanism [] Unable to walk/stand [] Unable to read [] Unable to drive [] Unable to eat/drink [] Unable to sleep [] Unable to be with family [] Patient intubated [] Other: Summary Time spent with patient 10 min
--- NOTE | 2020-12-10 10:44 | P.DS_ITS ---
Discharge Providers Date of Admission: 12/08/20 16:20 Date of Discharge: December 10, 2020 Attending Provider at Admission: Milton Deras MD Attending Provider at Discharge: Loren Weinstein MD Diagnoses at Discharge Discharge Diagnosis (1) Sepsis: Status: Acute (2) Acute pyelonephritis: Status: Acute (3) UTI (urinary tract infection): Status: Acute (4) Ureterolithiasis: Status: Acute (5) Acute kidney injury: Status: Acute (6) Atrial fibrillation: Status: Acute (7) HTN (hypertension): Status: Acute (8) Diabetes: Status: Acute (9) Hypothyroidism: Status: Acute (10) Adrenal insufficiency: Status: Acute (11) HEATHER (obstructive sleep apnea): Status: Acute Reason for Visit Reason for Visit: Blood in Urine/ Pain on lt side Hospital Course Hospital Course Bailey Gayle is a 70 year old female with PMH of DM ,HTN, Hypothyroidism,2nd ry adrenal insufficiency s/p Pituitary recestion for pituitary tumor came in with chief complaint of nausea vomiting and abdominal pain which was radiating from her back to her groin. CT abdomen and pelvis showed 0.4 cm obstructing stone in the left distal ureter resulting in mild hydroureteronephrosis and stranding of the surrounding fat. She underwent left-sided retrograde ureteroscopy laser and stenting December 08, 2020 and did well postoperatively. Postprocedure her abdominal pain is resolved. Nausea and vomiting are resolved as well. White blood cell count has trended down from 16-12. Overall picture is consistent with that of obstructive pyelonephritis, status post surgical intervention as above. Urine and blood cultures remain negative during the course of admission. She received empiric antibiotic treatment with Zosyn while she was admitted, transitioned to oral ciprofloxacin empirically upon discharge for 10 days. Follow-up with Dr. Deras as outpatient in the next 7 to 10 days. Eliquis has been resumed at the time of discharge. 02 was noted on RA to be 81% just prior to discharge, likely an error as subsequent home 02 eval did not qualify for home 02 use. CXR did not show any acute changes. Physical Exam Narrative: EXAM NARRATIVE: GEN: Awake, alert and oriented, no acute distress CVS: S1S2 N RS: CTA B/L Abd: Soft, nt/nd , bs+ ENDOSCOPY TECHNICIAN: no focal neuro deficits Urinary Catheter Management^: Mendez: Cath Placed During This Visit: yes, but has since been removed by the nurse Reason for Continuing Indwelling Catheter: Decision to DC Catheter Urinary Catheter Date of Insertion: 12/08/20 Urinary Catheter Time of Insertion: 18:32 Date Urinary Catheter Removed: 12/09/20 Time Urinary Catheter Discontinued: 17:59 Discharge Data Data Completed and Pending: Completed Studies During Hospitalization Category Date Time Status CT kidney stone [id number] Urgent Cat Scan 12/08/20 11:49 Completed Pending at discharge Category Date Time Status Blood Culture Rou sosa Lab 12/08/20 16:00 Results Complete Blood Co unt w/Auto AM LABS Lab 12/11/20 04:00 Ordered Comprehensive Met abolic Panel AM LA BS Lab 12/11/20 04:00 Ordered Stone Analysis Ro utine Lab 12/08/20 18:04 Received Vancomycin Trough Timed Lab 12/12/20 00:00 Ordered Pathology: Surgic al [PTH] Routine Pth 12/08/20 18:50 Received Labs from last 24 hours 12/10/20 12/10/20 12/10/20 06:04 01:51 01:51 WBC 12.3 H RBC 3.50 L Hgb 10.5 L Hct 34.3 L MCV 98.0 MCH 30.0 MCHC 30.6 RDW 17.6 H Plt Count 269 MPV 10.2 Neut % (Auto) 60.8 Lymph % (Auto) 27.3 Schley % (Auto) 7.4 Eos % (Auto) 1.6 Baso % (Auto) 0.7 Neut # (Auto) 7.44 Lymph # (Auto) 3.4 Schley # (Auto) 0.9 Eos # (Auto) 0.2 Baso # (Auto) 0.1 Nucleated RBC % (a uto) 0.2 Nucleated RBCs # 0.0 Sodium 142 Potassium 3.7 Chloride 110 H Carbon Dioxide 21 L Anion Gap 14.7 BUN 30 H Creatinine 1.1 H GFR Calculation 49.4 L Glucose 144 H POC Glucose 106 Calculated Osmolal ity 303 H Calcium 7.7 L Total Bilirubin 0.5 AST 39 H ALT 56 H Alkaline Phosphata se 68 Total Protein 5.7 L Albumin 3.0 L Globulin 2.7 12/09/20 12/09/20 12/09/20 20:32 17:06 10:38 WBC RBC Hgb Hct MCV MCH MCHC RDW Plt Count MPV Neut % (Auto) Lymph % (Auto) Schley % (Auto) Eos % (Auto) Baso % (Auto) Neut # (Auto) Lymph # (Auto) Schley # (Auto) Eos # (Auto) Baso # (Auto) Nucleated RBC % (a uto) Nucleated RBCs # Sodium Potassium Chloride Carbon Dioxide Anion Gap BUN Creatinine GFR Calculation Glucose POC Glucose 199 H 116 H 153 H Calculated Osmolal ity Calcium Total Bilirubin AST ALT Alkaline Phosphata se Total Protein Albumin Globulin Vitals: Last Vital Signs Temp 97.3 F L 12/10/20 08:00 Pulse 84 12/10/20 08:00 Resp 18 12/10/20 08:00 BP 122/64 12/10/20 08:00 Pulse Ox 97 12/10/20 08:00 Discharge Plan Discharge Patient Disposition: Home Condition: Stable Prescriptions: New Cipro 500 mg tablet 500 mg PO BID 10 Days Qty: 20 RF: 0 Continued atorvastatin 40 mg tablet 40 mg PO DAILY@1800 RF: 0 prednisone 5 mg tablet See Rx Instructions .ROUTE .COMPLEX RF: 0 glipizide 5 mg tablet extended release 24hr 5 mg PO DAILY RF: 0 metformin 1,000 mg tablet 1,000 mg PO BID@0600,1800 RF: 0 levothyroxine 125 mcg tablet 125 mcg PO DAILY@0600 RF: 0 irbesartan-hydrochlorothiazide 300-12.5 mg tablet 1 tab PO DAILY@0600,1800 RF: 0 metoprolol tartrate 25 mg tablet 25 mg PO BID@0600,1800 RF: 0 Urinary Pain Relief See Rx Instructions .ROUTE .COMPLEX RF: 0 Vitamin D3 1 tab PO DAILY@0600 RF: 0 Eliquis 5 mg tablet 5 mg PO BID@0600,1800 RF: 0 Discharge Orders: Discharge Order (Routine); Ordered 12/10/20 Ordered By: Loren Weinstein Referrals: Milton Deras MD [Physician] - 12/25/20 12:00 pm (Kub 1st APPOINTMENT WITH [facility] FOR KUB THEN TO DR DERAS OFFICE AFTER EXRAY) Discharge Diet: Usual diet Discharge Activity: Resume usual activity Patient Instructions: Cystoscopy, Ciprofloxacin (By mouth), Ureteral Stent Placement (DC) Discharge Attestations Time Spent in Discharge Care*: greater than 30 min Quality Metrics Clinical Quality Measures During this hospital stay, did patient experience: None Coding Level of Care Code Acute Individualized Education Plan Aide for Chg Fwd Diagnoses Sepsis A41.9 Acute pyelonephritis N10 UTI (urinary tract infection) N39.0 Ureterolithiasis N20.1 Acute kidney injury N17.9 Atrial fibrillation I48.91 HTN (hypertension) I10 Diabetes E11.9 Hypothyroidism E03.9 Adrenal insufficiency E27.40 HEATHER (obstructive sleep apnea) G47.33
--- NOTE | 2020-12-10 11:12 | PC.NURSE ---
patient's oxygen on RA is 81%. Hooker Off notified Dr Weinstein.
--- NOTE | 2020-12-10 11:33 | PC.NURSE ---
Rcvd order from Dr Weinstein to order Home O2 eval, order CXR and discontinue IV fluids. Rn Radiation put orders in and notified RT of home O2 eval.
--- NOTE | 2020-12-10 11:41 | PC.NURSE ---
patient refused to put oxygen on when oxygen was low. patient's oxygen level is now 93-94%. Notified Dr Weinstein.
--- NOTE | 2020-12-10 12:02 | XRR_ITS ---
PROCEDURE INFORMATION: Exam: XR Chest, 1 View Exam date and time: 12/10/2020 12:09 PM Age: 70 years old Clinical indication: Other: Hypoxia TECHNIQUE: Imaging protocol: XR of the chest Views: 1 view. COMPARISON: CR Chest 2 views* [id number] 04/10/2019 2:05 PM FINDINGS: Lungs: There is patchy hazy density in the left base along the left hemidiaphragm. This may represent a left lower lobe pneumonia. Right lung is clear. Pleural spaces: Unremarkable. No pleural effusion. No pneumothorax. Heart/Mediastinum: Unremarkable. No cardiomegaly. Bones/joints: Unremarkable. XR/XR chest 1V portable [id number] IMPRESSION: Patchy infiltrate in the left lung base along the diaphragm which may represent a left lower lobe pneumonia.
--- NOTE | 2020-12-10 12:39 | PC.NURSE ---
Patient refused blood sugar draw. she said she is going home
--- NOTE | 2020-12-10 14:53 | PC.NURSE ---
patient and son given discharge instructions and verbalized understanding of instructions. patient's medications delivered to bed. patient taken to private vehicle via wheelchair and assisted into vehicle by technical writer and editor.
--- NOTE | 2020-12-11 13:54 | P.PN_ITS ---
Subjective Subjective: Interval history: Urology follow-up: 12/10/2020. She continues to improve. No elevated temperatures. No nausea or vomiting. Pain has resolved entirely. Tolerating the stent reasonably well with some urgency but not severe. No evidence of infection concern. I think she is ready for discharge and I will plan on seeing her back in a couple weeks for stent removal. Reviewed with the patient and her son the importance of having the stent removed. She does need some time for healing of the ureter prior to stent removal but I think 2 weeks should be enough. Medications: Reviewed: Yes Vitals/I&O/Wt Last Vital Signs Temp 97.3 F L 12/10/20 14:56 Pulse 88 12/10/20 14:56 Resp 19 H 12/10/20 14:56 BP 150/88 12/10/20 14:56 Pulse Ox 91 12/10/20 14:56 Physical Exam Const: COMMON NORMALS: no acute distress, alert and well nourished GENERAL APPEARANCE: well kempt and well developed ORIENTATION/CONSCIOUSNESS: not confused Resp: COMMON NORMALS: normal respiratory effort EFFORT & INSPECTION: No labored and No Actively coughing Extremity: COMMON NORMALS: no clubbing, cyanosis or edema Neuro: COMMON NORMALS: no focal motor deficits SENSORIUM/ORIENTATION: Yes alert Psych: COMMON NORMALS: mental status grossly normal APPEARANCE: Yes grossly normal and Yes well kempt ATTITUDE: Yes calm and Yes engaged Skin: COMMON NORMALS: no rashes or lesions noted and no jaundice GENERAL SKIN EXAM: no rashes or lesions noted Urinary Catheter Management^: Mendez: Cath Placed During This Visit: yes, but has since been removed by the nurse Reason for Continuing Indwelling Catheter: Decision to DC Catheter Urinary Catheter Date of Insertion: 12/08/20 Urinary Catheter Time of Insertion: 18:32 Date Urinary Catheter Removed: 12/09/20 Time Urinary Catheter Discontinued: 17:59 Data : 12/10/20 01:51 12/10/20 01:51 A&P Assessment and plan (1) Acute pyelonephritis: Recovering well. We will go home on Cipro Status: Acute (2) Ureterolithiasis: . Status post stone treatment. With laser lithotripsy. Will maintain stent for a couple weeks. Status: Acute Attestations Medical Necessity Statement*: See attending Coding Level of Care Code Acute Senior Warehouse Clerk for Chg Fwd Exam Detailed Diagnoses Acute pyelonephritis N10 Ureterolithiasis N20.1
== END 2020-12-10 15:01 | disposition home or self-care (01) | DRG 854 ==
LOC: ER 14:47 → OR 15:39 → MEDSURG 18:05
PROVIDERS: Internal Medicine; Admitting Provider Urology; Emergency Provider Family Medicine; Visit Provider Student in an Organized Health Care Education/Training Program
PROC: 0TJB8ZZ Inspection of Bladder, Via Natural or Artificial Opening Endoscopic (ICD-10-PCS; CPT 52000; principal; 2020-12-08 17:00)
PROC: 0T778DZ Dilation of Left Ureter with Intraluminal Device, Via Natural or Artificial Opening Endoscopic (ICD-10-PCS; CPT 50605; 2020-12-08 17:00)
PROC: 0T778DZ Dilation of Left Ureter with Intraluminal Device, Via Natural or Artificial Opening Endoscopic (ICD-10-PCS; 2020-12-08 17:00)
PROC: 0T778DZ Dilation of Left Ureter with Intraluminal Device, Via Natural or Artificial Opening Endoscopic (ICD-10-PCS; CPT 74420; 2020-12-08 17:00)
PROC: 0T778DZ Dilation of Left Ureter with Intraluminal Device, Via Natural or Artificial Opening Endoscopic (ICD-10-PCS; 2020-12-08 17:00)
PROC: 0TJ98ZZ Inspection of Ureter, Via Natural or Artificial Opening Endoscopic (ICD-10-PCS; CPT 52351; 2020-12-08 17:00)
DX: A41.9 Sepsis, unspecified organism (principal); N13.2 Hydronephrosis with renal and ureteral calculous obstruction; N39.0 Urinary tract infection, site not specified; N17.9 Acute kidney failure, unspecified; E27.49 Other adrenocortical insufficiency; E87.2 Acidosis; Z68.41 Body mass index [BMI] 40.0-44.9, adult; N10 Acute pyelonephritis; E11.9 Type 2 diabetes mellitus without complications; I10 Essential (primary) hypertension; E03.9 Hypothyroidism, unspecified; I48.91 Unspecified atrial fibrillation; G47.33 Obstructive sleep apnea (adult) (pediatric); Z79.52 Long term (current) use of systemic steroids; Z79.84 Long term (current) use of oral hypoglycemic drugs; Z79.01 Long term (current) use of anticoagulants; E66.09 Other obesity due to excess calories
CPT/HCPCS: 12345; 36415; 36416; 71045; 74176; 76000; 80053; 81001; 82365; 82962; 83605; 83690; 84145; 85025; 87040; 87086; 88300; 93005; 96372; 99284; C2625; J0330; J0696; J1720; J1815; J1956; J2270; J2370; J2405; J2543; J2550; J2704; J2930; J3010; J3370; J3490; J7030; J7512

== ENCOUNTER 2021-03-24 09:31 | Outpatient (CLI) | payer BC, MEDICARE, SELFPAY ==
--- NOTE | 2021-03-24 09:45 | XR_ITS ---
WS: [id number] Exam: XR KUB [id number] Date/Time of Exam: 03/24/2021 9:43 AM Reason For Exam: N20.1 - Calculus of ureter No bowel obstruction or free air. Numerous calcifications superimposing the right kidney suggesting m ultiple calculi. There are several pelvic calcifications which are nonspecific in appearance. Visuali zed organ margins appear normal. XR/XR KUB [id number] IMPRESSION: 1. Multiple calcifications superimposing the right kidney most likely represent ing multiple calculi. 2. Nonspecific pelvic calcifications. No acute abdominal process.
== END 2021-03-24 09:32 | disposition home or self-care (01) ==
LOC: RAD 09:35
PROVIDERS: Visit Provider Urology
DX: N20.1 Calculus of ureter (principal); N20.0 Calculus of kidney
CPT/HCPCS: 74018; 80048; 81003

== ENCOUNTER → 2022-03-13 08:44 | Outpatient (BNVA) | payer OTHER, MEDICARE, SELFPAY | PROVIDERS: Visit Provider Internal Medicine Cardiovascular Disease | DX: I48.91 Unspecified atrial fibrillation (principal); I10 Essential (primary) hypertension; E11.9 Type 2 diabetes mellitus without complications; G47.33 Obstructive sleep apnea (adult) (pediatric); Z79.84 Long term (current) use of oral hypoglycemic drugs | CPT/HCPCS: 99214 ==

== ENCOUNTER 2022-07-29 12:44 | Outpatient (CLI) | payer OTHER, SELFPAY ==
--- NOTE | 2022-07-29 12:54 | MR_ITS ---
WS: [id number] MRI RIGHT KNEE NONCONTRAST TECHNIQUE: Axial PD, coronal PD fat sat, coronal PD, sagittal PD, and sagittal PD fat-sat images obta ined. CLINICAL INFORMATION: CONTUSION OF R KNEE COMPARISON: None. FINDINGS: Distal quadriceps and patella tendons are intact. Hypertrophic patella. ACL and PCL appear intact. Me dial and lateral meniscus appear intact. No acute appearing meniscal tears. Small suprapatellar effusion. Subcutaneous edema about the knee soft tissues. Small fluid collection prepatellar soft tissues with distention of the prepatellar bursa. Findings compatible with prepatell ar bursitis. Normal medial and lateral collateral ligaments. Grade III chondromalacia medial and lateral joint spa jarvis. Normal medial and lateral collateral ligaments. MR/MR knee RT wo con* [id number] IMPRESSION: 1. ACL and PCL appear intact. 2. Evidence of prepatellar bursitis with a small amount of fluid in a distende d suprapatellar bursa. Subcutaneous edema. 3. Small suprapatellar effusion. 4. No acute appearing meniscal tears. 5. Moderate chondromalacia patella. No subchondral edema. 6. Normal medial and lateral patellar retinaculum. 7. Medial and lateral collateral ligaments are intact. Outbridge grading: grade III: partial-thickness cartilage loss with focal ulcer ation
== END 2022-07-29 12:45 | disposition home or self-care (01) ==
LOC: RAD 12:44
PROVIDERS: Visit Provider Nurse Practitioner Family
DX: S80.01XA Contusion of right knee, initial encounter (principal); X58.XXXA Exposure to other specified factors, initial encounter; M25.461 Effusion, right knee; M22.41 Chondromalacia patellae, right knee
CPT/HCPCS: 73721

== ENCOUNTER 2023-12-04 20:11 | Inpatient (IN) | payer MEDICARE, SELFPAY ==
[2023-12-04 20:11] VITALS: BP 107/56; PULSE 76; RESP 16; TEMP 36.3; O2SAT 99; BMI 39.0
[2023-12-04 20:34] VITALS: BP 100/54; PULSE 76; RESP 14; O2SAT 96
--- NOTE | 2023-12-04 20:59 | XRR_ITS ---
PROCEDURE INFORMATION: Exam: XR Right Hip Exam date and time: 12/04/2023 9:10 PM Age: 73 years old Clinical indication: Injury or trauma; Patient HX: RT hip/lt lower leg pain post fall TECHNIQUE: Imaging protocol: Radiologic exam of the right hip. Views: 1 view hip with pelvis when performed. 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 No acute fracture. Soft tissues: Right ureteral stent. XR/XR hip RT 2-3V wo/w pel* [id number] IMPRESSION: 1. No acute findings. 2. Severe right hip DJD.
--- NOTE | 2023-12-04 20:59 | CTR_ITS ---
PROCEDURE INFORMATION: Exam: CT Head Without Contrast Exam date and time: 12/04/2023 9:31 PM Age: 73 years old Clinical indication: Injury or trauma; Blunt trauma (contusions or hematomas); Patient HX: Unwitnessed fall. Found at home on floor. Anticoagulated. TECHNIQUE: Imaging protocol: Computed tomography of the head without contrast. Radiation optimization: All CT scans at this facility use at least one of these dose optimization techniques: automated exposure control; mA and/or kV adjustment per patient size (includes targeted exams where dose is matched to clinical indication); or iterative reconstruction. COMPARISON: CT head wo con* [id number] 04/19/2018 10:51 AM RADIATION DOSE METRICS: Total DLP (mGy-cm): 1147.78 FINDINGS: Brain: No focal hemorrhage or midline shift is identified. A few scattered old lacunes are likely. Sella/sphenoid postop changes. Right-sided scleral band. Cerebral ventricles: The ventricles and parenchyma show mild atrophy and chronic bicerebral white matter ischemic change. No ventriculomegaly or evidence of hydrocephalus. Paranasal sinuses: No evidence of acute sinusitis. Mastoid air cells: Visualized mastoid air cells are well aerated. Bones/joints: No displaced skull fracture is noted. Soft tissues: Unremarkable. Vasculature: Diffuse vascular calcifications are present. CT/CT head wo con* [id number] IMPRESSION: 1. No acute intracranial hemorrhage or definite acute finding. 2. Mild age-related changes. Other chronic findings again noted, similar to 04/19/2018.
--- NOTE | 2023-12-04 20:59 | XRR_ITS ---
PROCEDURE INFORMATION: Exam: XR Left Tibia and Fibula Exam date and time: 12/04/2023 9:21 PM Age: 73 years old Clinical indication: Injury or trauma; Patient HX: RT hip/lt lower leg pain post fall TECHNIQUE: Imaging protocol: Radiologic exam of the left tibia and fibula. Views: 2 views. COMPARISON: No relevant prior studies available. FINDINGS: Bones/joints: No acute fracture or dislocation is noted. The skeletal structures seem age-appropriate. Soft tissues: Mild merritt dystrophic calcification. XR/XR tibia fibula LT 2V [id number] IMPRESSION: 1. No acute findings. 2. See ankle x-ray for those findings.
--- NOTE | 2023-12-04 20:59 | XRR_ITS ---
PROCEDURE INFORMATION: Exam: XR Left Ankle Exam date and time: 12/04/2023 9:24 PM Age: 73 years old Clinical indication: Injury or trauma; Patient HX: RT hip/lt lower leg pain post fall TECHNIQUE: Imaging protocol: Radiologic exam of the left ankle. Views: 3 or more views. COMPARISON: CR (LOW EXM, ) 12/04/2023 9:24 PM FINDINGS: Bones/joints: There are small chip fractures at medial malleolus of uncertain age. Old distal fibular healed deformity. There may be a subtle fracture just distal to this. There is mild lateral clear space widening. Likely old corticated density subjacent to the lateral malleolus as well. Soft tissues: Severe ankle swelling. XR/XR ankle LT min 3V* [id number] IMPRESSION: 1. Small chip fractures at medial malleolus of uncertain age. 2. Distal fibular old deformity. Just distal to this, there is a subtle nondisplaced fracture likely. Advise appropriate orthopedic follow-up. 3. Advanced swelling. 4. Lateral clear space widening which implies ankle ligamentous instability. 5. Prior ankle trauma.
--- NOTE | 2023-12-04 20:59 | XRR_ITS ---
PROCEDURE INFORMATION: Exam: XR Left Foot Exam date and time: 12/04/2023 9:24 PM Age: 73 years old Clinical indication: Injury or trauma; Fall; Other: Pain; Additional info: RT hip/lt lower leg pain post fall TECHNIQUE: Imaging protocol: Radiologic exam of the left foot. Views: 3 or more views. COMPARISON: CR (LOW EXM, ) 12/04/2023 9:24 PM FINDINGS: Bones/joints: Diffuse osteopenia. Likely old deformity in distal 4th metatarsal, advise correlation. Soft tissues: Advanced distal foot swelling. XR/XR foot LT min 3V* [id number] IMPRESSION: 1. Severe distal dorsal foot soft tissue swelling. 2. Likely old deformity in distal 4th metatarsal. Advise correlation.
[2023-12-04 21:21] LABS: Add Urine Microscopic? YES; Bilirubin Urine Neg (Negative); Blood Urine 3+ (Negative); Glucose Urine UA Trace (Normal); Ketones Urine Negative (Negative); Leukocyte Esterase Urine 1+ (Negative); Nitrate Urine Negative (Negative); Protein Urine 2+ (Negative); Urine Appearance Cloudy (CLEAR); Urine Color Dark Yellow (Yellow); Urobilinogen Urine Norm (Negative); pH Urine 5 (5-7)
[2023-12-04 21:22] LABS: Amorphous Sediment Urine TRACE /hpf; Bacteria Urine 1+ /hpf; Mucus Urine TRACE /hpf; RBC Urine 25-40 /hpf (0-2); Squamous Epithelial Cell Urine 0-4 /hpf (0-5); WBC Urine 15-25 /hpf (0-5)
[2023-12-04 21:23] LABS: Add Urine Culture? Yes
--- NOTE | 2023-12-04 21:29 | PC.NURSE ---
Medication Delay: Fentanyl delayed d/t x-ray in room and then pt going to CT.
[2023-12-04] MEDS: fentaNYL 50 mcg/mL INJ 2mL IVP (21:51)
--- NOTE | 2023-12-04 21:51 | PC.NURSE ---
pt placed on playground monitor. see EMR vital signs.
[2023-12-04 21:52] VITALS: BP 104/34; PULSE 81; RESP 21; O2SAT 95
[2023-12-04] MEDS: sodium chloride 0.9% 1,000 ML 999 ML IV (22:16)
[2023-12-04 22:18] LABS: Lactic Sepsis W/Reflex 3.7 mmol/L (0.5-2.2)
[2023-12-04 22:19] LABS: Alanine Aminotransferase 29 U/L (0-33); Albumin Level 3.5 g/dL (3.5-5.2); Alkaline Phosphatase 110 U/L (35-105); Anion Gap 19.9 (5-19); Aspartate Amino Transferase 25 U/L (0-32); Blood Urea Nitrogen 45 mg/dL (8-23); Calcium 9.4 mg/dL (8.5-10.5); Carbon Dioxide 21 mmol/L (22-29); Chloride 105 mmol/L (98-107); Globulin 2.7 g/dL (1.3-4.6); Glucose 191 mg/dL (65-115); Osmolality Calculated 311 mOsm/kg (285-295); Potassium 3.9 mmol/L (3.5-5.1); Sodium 142 mmol/L (136-145); Total Bilirubin 0.6 mg/dL (0.15-1.2); Total Protein 6.2 g/dL (6.6-8.7)
--- NOTE | 2023-12-04 22:19 | PC.NURSE ---
pt oxygen saturation 88% on room air after Fentanyl administration. placed 2L NC on pt, oxygen saturation currently 95%. pt states she wears CPAP at night.
[2023-12-04 22:29] VITALS: BP 84/40; PULSE 73; RESP 23; O2SAT 99
[2023-12-04 22:30] LABS: Creatine Phosphokinase 202 U/L (26-192)
[2023-12-04 22:35] LABS: Basophils # 0.1 10^3/uL (0.0-0.1); Basophils % 0.6 %; Eosinophils # 0.3 10^3/uL (0.0-0.8); Eosinophils % 2.2 %; Hematocrit 31.3 % (36-47); Lymphocytes # 1.5 10^3/uL (0.8-4.8); Lymphocytes % 12.6 %; Mean Corpuscular HGB Conc 31.6 g/dL (30-55); Mean Corpuscular Hemoglobin 30.4 pg (27-33); Mean Platelet Volume 10.2 fL (7.4-10.4); Monocytes # 1.1 10^3/uL (0.2-0.9); Monocytes % 8.7 %; Neutrophils # 8.45 10^3/uL (1.8-7.7); Neutrophils % 69.7 %; Nucleated Red Blood Cells # 0.2 /100WBC; Nucleated Red Blood Cells % 1.8 %; Platelet Count 390 10^3/cmm (157-399); Red Blood Count 3.26 10^6/uL (3.85-5.65); White Blood Count 12.11 10^3/uL (3.29-11.43)
--- NOTE | 2023-12-04 22:40 | PC.NURSE ---
pt abx ordered & pulled, but provider decided to order cultures before giving abx.
[2023-12-04 22:48] LABS: Slide Review Slide Review Perform
--- NOTE | 2023-12-04 22:52 | XRR_ITS ---
PROCEDURE INFORMATION: Exam: XR Chest Exam date and time: 12/04/2023 11:01 PM Age: 73 years old Clinical indication: Injury or trauma; Fall TECHNIQUE: Imaging protocol: Radiologic exam of the chest. Views: 1 view. COMPARISON: CR XR chest 1V portable [id number] 12/10/2020 12:16 PM FINDINGS: Lungs: No focal pneumonia. Pleural spaces: No pneumothorax. Heart/Mediastinum: Heart is large. Mild venous congestion. Mild diffuse edema or scarring. Bones/joints: Unremarkable. XR/XR chest 1V portable [id number] IMPRESSION: Large heart with mild diffuse interstitial prominence may be due to edema or scarring.
--- NOTE | 2023-12-04 22:53 | ED_ITS ---
HPI - Fall 2 General: Chief Complaint: Fall Stated Complaint: FALL Time Seen by Provider: 12/04/23 20:18 History of Present Illness: Bailey is a 73-year-old chronically ill-appearing female presents to the emergency department with complaints of a fall. Patient has a complicated history recently. She was admitted a week ago at [facility] for an obstructing kidney stone that resulted in urosepsis. Patient signed out AMA and went home following a stent placement. Initially when they arrived here in the emergency department the complaint was for fall. She has left ankle ecchymosis, swelling and pain. Patient also has right hip pain. She does not appear well at all. Patient has a medical history that includes high cholesterol, hypertension, atrial fibrillation, cardiovascular disease, [employer] syndrome, adrenal insufficiency, diabetes and hypothyroidism Associated symptoms-after fall: Denies abdominal pain, chest pain, headache(s), lightheadedness or neck pain Review of Systems 2 Const: Denies: fever(s) or chills Eyes: Denies: change in vision Card: Reports: irregular heart rhythm (afib occasionally), swelling of feet/ankles and dyspnea on exertion; Denies: chest pain, palpitations, lightheadedness or orthopnea Resp: Denies: dyspnea, productive cough or non-productive cough GI: Denies: abdominal pain, nausea or vomiting : Reports: flank pain and other (Has a Mendez with dark-colored urine) Musc: Reports: extremity pain, extremity swelling, joint pain and joint swelling; Denies: neck pain or back pain Neuro: Denies: headache(s) or dizziness Psych: Reports: anxiety; Denies: depression Johnnie/Lymph: Reports: easy bruising; Denies: easy bleeding PFSH ED 2 PFSH: Medical History (Updated 03/14/22 @ 16:19 by Yvette Dewey MD) Uric acid urolithiasis Retained ureteral stent Cushings syndrome HEATHER (obstructive sleep apnea) Atrial fibrillation Adrenal insufficiency Hypothyroidism Diabetes HTN (hypertension) Acute pyelonephritis Surgical History History of cataract surgery History of appendectomy Family History Other CAD (coronary artery disease) Diabetes Social History Smoking and tobacco/nicotine status: never used tobacco/nicotine Alcohol intake: never Substance/Drug Use: never Marital status: / Current occupational status: employed Physical Exam 2 Const: COMMON NORMALS: no acute distress, patient oriented x3 and alert G ENERAL APPEARANCE: cooperative ORIENTATION/CONSCIOUSNESS: Yes awake, Yes oriented to person, Yes oriented to place and Yes oriented to time HENMT: COMMON NORMALS: normocephalic and atraumatic HEAD & SCALP: n ormocephalic and atraumatic FACE & SINUS: normal facial exam MOUTH: Normal oral and palatal mucosa present THROAT: posterior oropharynx normal Eye: COMMON NORMALS: Equal, round and reactive pupils present, EOMs intact bilaterally, conjunctivae normal and no scleral icterus GENERAL EYE: a ppearance normal, both eyes and all related structures ALIGNMENT: Yes alignment normal PERIORBITAL: periorbital findings normal CONJUNCTIVA: Yes conjunctivae normal PUPIL: Yes Equal, round and reactive pupils present Neck/C-Spine: COMMON NORMALS: full ROM GENERAL: Yes normal visual inspection Lymph: LYMPHATIC: no lymphadenopathy noted Chest: COMMONS NORMALS: normal inspection of the chest Breast/axilla inspection: Yes no chest deformity, asymmetry, normal contours, no nodules, masses, tenderness Resp: COMMON NORMALS: normal respiratory effort, No retractions, No use of accessory muscles and clear to auscultation bilaterally EFFORT & INSPECTION: Yes able to speak in complete sentences and Yes symmetric chest movement A USCULTATION: clear to auscultation bilaterally Cardio: COMMON NORMALS: regular rate, regular rhythm and Peripheral pulses 2+ throughout RATE: regular rate RHYTHM: regular rhythm PERIPHERAL PULSES: Peripheral pulses 2+ throughout GI: COMMON NORMALS: Normal to inspection, nondistended, normoactive bowel sounds present, Soft to palpation, non-tender and No hepatosplenomegaly present INSPECTION: Yes normal to inspection AUSCULTATION: Yes normoactive bowel sounds PALPATION: Yes Soft to palpation and Yes No hepatosplenomegaly present RECTAL EXAM: deferred Extremity: COMMON NORMALS: normal to inspection NARRATIVE EXTREMITY EXAM: Left lower extremity: Patient has an ecchymotic and swollen left ankle. She also reports right hip pain. Her right lower extremity she can flex and extend the hip and knee. Dorsiflex plantarflex the foot Patient can also dorsiflex great toe He does have pitting edema Sensations intact to light touch Back to the left lower extremity she has swelling and ecchymosis. Unable to pinch the skin. She is unable to dorsiflex or plantarflex the foot This is largely due to pain She is able to dorsiflex great toe She is sensation intact throughout the foot GENERAL: Yes normal exam except as noted Neuro: COMMON NORMALS: patient oriented x3 SENSORIUM/ORIENTATION: Yes alert, Yes oriented to person, Yes oriented to place and Yes oriented to time CRANIAL NERVES: Yes CN normal except as noted Psych: COMMON NORMALS: mental status grossly normal, Normal thought process present, cooperative, activity/motor behavior normal, denies homicidal ideation and denies suicidal ideation THOUGHT PROCESS: Normal thought process present Skin: COMMON NORMALS: no rashes or lesions noted, no wounds and turgor normal GENERAL SKIN EXAM: no rashes or lesions noted and turgor normal Course 2 Vital Signs: Vital signs: Vital Signs Temperature 97.4 F L 12/04/23 20:11 Pulse Rate 75 12/05/23 00:08 Respiratory Rate 20 H 12/05/23 00:08 Blood Pressure 113/62 12/05/23 00:08 Pulse Oximetry 98 12/05/23 00:08 Oxygen Delivery Me thod Nasal Cannula 12/04/23 22:29 Oxygen Flow Rate 2 12/04/23 22:29 MDM - Fall Medical Decision Making Patient was evaluated in the emergency department today for complaints of a fall originally but as we explored her story it was noted that she was admitted a week ago for urosepsis due to an obstructing stone. She underwent stent placement and she has been making urine since. She reportedly signed out AMA and went home. While at home she had a fall on . She was found on Wednesday. Unfortunately she declined coming in initially resolved to stay home. Fortunately her daughter forced her hand and called EMS. Patient is unwell appearing. She has obvious left ankle injury. This is going to be splinted as she has an mortise widening suggestive of a ligamentous injury. She will be placed in a removable boot or posterior short leg splint She underwent CT head which was unremarkable, XR pelvis unremarkable. We did obtain a urine specimen which was very dirty bacteria bacteria byproducts. There is protein and blood and white count of. Her CBC reveals a mild leukocytosis of 12,000. Her chemistry panel reveals 1.5 creatinine and a BUN of 45 Lactic acid 3.7 I have spoken with the hospitalist regarding findings. He advised CT renal protocol to rule out hydronephrosis or obstructing stone. CT does not reveal hydronephrosis and stent appears to be. Troponin is elevated at 84. BNP is less than 700 Patient did have 2 episodes of hypotension. She was given a liter normal saline but due to her chest x-ray I am concerned that she will not tolerate fluids as well. We have ordered Levophed as needed. Dr. Bolton has come to evaluate the patient. Admit to ICU Lab Data 12/04/23 22:19 12/04/23 21:43 Radiology Impressions Ankle X-Ray 12/04/23 20:59 IMPRESSION: 1. Small chip fractures at medial malleolus of uncertain age. 2. Distal fibular old deformity. Just distal to this, there is a subtle nondisplaced fracture likely. Advise appropriate orthopedic follow-up. 3. Advanced swelling. 4. Lateral clear space widening which implies ankle ligamentous instability. 5. Prior ankle trauma. Foot X-Ray 12/04/23 20:59 IMPRESSION: 1. Severe distal dorsal foot soft tissue swelling. 2. Likely old deformity in distal 4th metatarsal. Advise correlation. Head CT 12/04/23 20:59 IMPRESSION: 1. No acute intracranial hemorrhage or definite acute finding. 2. Mild age-related changes. Other chronic findings again noted, similar to 04/19/2018. Hip/Pelvis X-Ray 12/04/23 20:59 IMPRESSION: 1. No acute findings. 2. Severe right hip DJD. Tibia/Fibula X-Ray 12/04/23 20:59 IMPRESSION: 1. No acute findings. 2. See ankle x-ray for those findings. Chest X-Ray 12/04/23 22:52 IMPRESSION: Large heart with mild diffuse interstitial prominence may be due to edema or scarring. Abdomen/Pelvis CT 12/04/23 23:19 IMPRESSION: 1. No hydronephrosis or definite abscess identified. 2. Right ureteral stent is in place. 3. Left renal lesions can be followed with ultrasound. Numerous chronic findings above including cholelithiasis, kidney stones, etc. 4. Severe sigmoid diverticulosis. No small bowel obstruction, abscess or free air. COMMENTS: Consistent with the [employer]'s Incidental Findings Committee white paper (J Am Nafisa Radiol 2018): Any incidental renal lesion less than 1 cm or classified as too small to characterize, or any incidental cystic renal lesion characterized as simple-appearing, is likely benign. No follow-up imaging is recommended for these lesions per consensus recommendations based on imaging criteria. Laboratory Results WBC 12.11 10^3/uL (3.29-11.43) H 12/04/23 22:19 Corrected WBC Cancelled 12/04/23 21:43 RBC 3.26 10^6/uL (3.85-5.65) L 12/04/23 22:19 Hgb 9.90 g/dL (11.27-16.99) L 12/04/23 22:19 Hct 31.3 % (36-47) L 12/04/23 22:19 MCV 96.0 fl (85-98) 12/04/23 22:19 MCH 30.4 pg (27-33) 12/04/23 22:19 MCHC 31.6 g/dL (30-55) 12/04/23 22:19 RDW 17.0 % (12.1-15.1) H 12/04/23 22:19 Plt Count 390 10^3/cmm (157-399) 12/04/23 22:19 MPV 10.2 fL (7.4-10.4) 12/04/23 22:19 Gran % Cancelled 12/04/23 21:43 Neut % (Auto) 69.7 % 12/04/23 22:19 Lymph % (Auto) 12.6 % 12/04/23 22:19 [place] % (Auto) 8.7 % 12/04/23 22:19 Eos % (Auto) 2.2 % 12/04/23 22:19 Baso % (Auto) 0.6 % 12/04/23 22:19 Neut # (Auto) 8.45 10^3/uL (1.8-7.7) H 12/04/23 22:19 Lymph # (Auto) 1.5 10^3/uL (0.8-4.8) 12/04/23 22:19 [place] # (Auto) 1.1 10^3/uL (0.2-0.9) H 12/04/23 22:19 Eos # (Auto) 0.3 10^3/uL (0.0-0.8) 12/04/23 22:19 Baso # (Auto) 0.1 10^3/uL (0.0-0.1) 12/04/23 22:19 Absolute Gran (auto) Cancelled 12/04/23 21:43 Nucleated RBC % (auto) 1.8 % 12/04/23 22:19 Nucleated RBCs # 0.2 /100WBC 12/04/23 22:19 Sodium 142 mmol/L (136-145) 12/04/23 21:43 Potassium 3.9 mmol/L (3.5-5.1) 12/04/23 21:43 Chloride 105 mmol/L (98-107) 12/04/23 21:43 Carbon Dioxide 21 mmol/L (22-29) L 12/04/23 21:43 Anion Gap 19.9 (5-19) H 12/04/23 21:43 BUN 45 mg/dL (8-23) H 12/04/23 21:43 Creatinine 1.5 mg/dL (0.5-0.9) H 12/04/23 21:43 GFR Calculation Not Reportable 12/04/23 21:43 Glucose 191 mg/dL (65-115) H 12/04/23 21:43 Calculated Osmolality 311 mOsm/kg (285-295) H 12/04/23 21:43 Lactic Acid 3.7 mmol/L (0.5-2.2) H 12/04/23 21:43 Lactic Acid (Sepsis) 2.9 mmol/L (0.5-2.2) H 12/04/23 23:20 Calcium 9.4 mg/dL (8.5-10.5) 12/04/23 21:43 Total Bilirubin 0.6 mg/dL (0.15-1.2) 12/04/23 21:43 AST 25 U/L (0-32) 12/04/23 21:43 ALT 29 U/L (0-33) 12/04/23 21:43 Alkaline Phosphatase 110 U/L (35-105) H 12/04/23 21:43 Creatine Kinase 202 U/L (26-192) H 12/04/23 22:12 Troponin T Baseline 84 ng/L (0-10) H 12/04/23 22:19 NT-Pro-B Natriuret Pep 486 pg/mL (0-125) H 12/04/23 22:19 Total Protein 6.2 g/dL (6.6-8.7) L 12/04/23 21:43 Albumin 3.5 g/dL (3.5-5.2) 12/04/23 21:43 Globulin 2.7 g/dL (1.3-4.6) 12/04/23 21:43 Urine Color Dark yellow (Yellow) 12/04/23 21:03 Urine Appearance Cloudy (CLEAR) A 12/04/23 21:03 Urine pH 5 (5-7) 12/04/23 21:03 Ur Specific [place] 1.020 (1.005-1.030) 12/04/23 21:03 Urine Protein 2+ (Negative) H 12/04/23 21:03 Urine Glucose (UA) Trace (Normal) H 12/04/23 21:03 Urine Ketones Negative (Negative) 12/04/23 21:03 Urine Blood 3+ (Negative) H 12/04/23 21:03 Urine Nitrate Negative (Negative) 12/04/23 21:03 Urine Bilirubin Neg (Negative) 12/04/23 21:03 Urine Urobilinogen Norm mg/dL (Negative) 12/04/23 21:03 Ur Leukocyte Esterase 1+ (Negative) H 12/04/23 21:03 Urine RBC 25-40 /hpf (0-2) H 12/04/23 21:03 Urine WBC 15-25 /hpf (0-5) H 12/04/23 21:03 Ur Squamous Epith Cells 0-4 /hpf (0-5) H 12/04/23 21:03 Amorphous Sediment Trace /hpf 12/04/23 21:03 Urine Bacteria 1+ /hpf (NONE) H 12/04/23 21:03 Urine Mucus Trace /hpf 12/04/23 21:03 Urine Yeast 3+ /hpf H 12/04/23 21:03 All radiology interpretation(s) finalized by discharge Discharge Plan Discharge Condition: Stable Prescriptions: No Action metoprolol tartrate 50 mg tablet 50 mg PO BID Qty: 180 3RF levothyroxine 75 mcg capsule 12.5 mcg PO DAILY acetaminophen [Tylenol] 325 mg tablet 325 mg PO QID PRN potassium citrate 10 mEq (1,080 mg) tablet extended release See Rx Instructions .ROUTE .COMPLEX Qty: 60 1RF Dose Instruction: Take 1 tablet by mouth twice daily Rx Instructions: Take 1 tablet by mouth twice daily atorvastatin 40 mg tablet 40 mg PO DAILY@1800 prednisone 5 mg tablet See Rx Instructions .ROUTE .COMPLEX Rx Instructions: take 1 tab at 0600, and 1/2 tab at 1800 glipizide 5 mg tablet extended release 24hr 5 mg PO DAILY Rx Instructions: take daily with breakfast metformin 1,000 mg tablet 1,000 mg PO BID@0600,1800 Vitamin D3 1 tab PO DAILY@0600 Eliquis 5 mg tablet 5 mg PO BID@0600,1800 irbesartan-hydrochlorothiazide 300-12.5 mg tablet 1 tab PO DAILY Referrals: Mireille Lozoya MD [Primary Care Provider] - Coding Level of Care Code ED [employer] for [employer]le
--- NOTE | 2023-12-04 23:19 | CTR_ITS ---
PROCEDURE INFORMATION: Exam: CT Abdomen And Pelvis Without Contrast Exam date and time: 12/04/2023 11:39 PM Age: 73 years old Clinical indication: Abnormal findings; Abnormal lab test; Other: Hematuria/bacteriuria; Prior surgery; Surgery date: <1 month; Surgery type: Ureteral stent placed last week. Appy; Patient HX: Bacteriuria/hematuria with elevated wbc. ; Additional info: Renal stone, urosepsis TECHNIQUE: Imaging protocol: Computed tomography of the abdomen and pelvis without contrast. Radiation optimization: All CT scans at this facility use at least one of these dose optimization techniques: automated exposure control; mA and/or kV adjustment per patient size (includes targeted exams where dose is matched to clinical indication); or iterative reconstruction. COMPARISON: CT kidney stone [id number] 12/08/2020 12:48 PM RADIATION DOSE METRICS: Total DLP (mGy-cm): 1699.63 FINDINGS: Tubes, catheters and devices: Mendez catheter present. Lungs: Moderate lung base scarring/COPD. Diaphragm: Tiny hiatal hernia. Liver: Liver is large. Gallbladder and bile ducts: Multiple gallstones are visualized. Pancreas: Unremarkable with no suspicious mass. No ductal dilation. Spleen: The spleen is not enlarged. No suspicious mass is noted. Adrenal glands: Normal. No mass. Kidneys and ureters: Right ureteral stent present. Small mffn-[id number]-lgyk-right nephrolithiasis. Left renal lesions are seen. Some are cystic and some may contain fat. This may imply treated disease, scarring, etc. left hydronephrosis has resolved. Left ureteral stone has resolved. Stomach and bowel: Severe sigmoid diverticulosis. The colon is rather fecal filled. No small bowel obstruction, abscess or free air. Appendix: No evidence of appendicitis. Intraperitoneal space: No abscess or free air. Vasculature: Advanced diffuse vascular calcification noted. Lymph nodes: No enlarged lymph nodes. Urinary bladder: Collapsed and not studied. Reproductive: Unremarkable as visualized. Bones/joints: Old left pubic rami deformities. Moderate diffuse DJD. Soft tissues: No acute or suspicious finding noted. Diffuse anasarca. CT/CT kidney stone [id number] IMPRESSION: 1. No hydronephrosis or definite abscess identified. 2. Right ureteral stent is in place. 3. Left renal lesions can be followed with ultrasound. Numerous chronic findings above including cholelithiasis, kidney stones, etc. 4. Severe sigmoid diverticulosis. No small bowel obstruction, abscess or free air. COMMENTS: Consistent with the [employer]'s Incidental Findings Committee white paper (J Am Nafisa Radiol 2018): Any incidental renal lesion less than 1 cm or classified as too small to characterize, or any incidental cystic renal lesion characterized as simple-appearing, is likely benign. No follow-up imaging is recommended for these lesions per consensus recommendations based on imaging criteria.
--- NOTE | 2023-12-04 23:38 | ECG_ITS ---
[facility] Test Date: 2023-12-05 Pat Name: Bailey Gayle Department: Room: Gender: Female Communication Specialist: : [id number] Requested By: Zane Feldman Order Number: [id number] Danuta MD: Tejas Valladares M.D. Measurements Intervals Manter Rate: 79 P: 0 VA: 0 QRS: -56 QRSD: 72 T: 0 QT: 367 QTc: 422 Interpretive Statements ATRIAL FIBRILLATION LEFT AXIS DEVIATION [QRS AXIS < -30] LOW QRS VOLTAGE IN PRECORDIAL LEADS [QRS DEFLECTION < 1.0 mV IN CHEST LEADS] PATTERN CONSISTENT WITH PULMONARY DISEASE MINIMAL ST DEPRESSION [0.025+ mV ST DEPRESSION] Compared to ECG 12/08/2020 12:31:08 Left-axis deviation now present Low QRS voltage now present ST (T wave) deviation now present Electronically Signed On 12-05-2023 10:58:33 [employer] SALES CONSULTANT by Tejas Valladares M.D. [email or web address]
[2023-12-04 23:42] LABS: Reflex Lactate Order REFLEX LACTIC ORDERD
[2023-12-05] VITALS (38 sets, daily range): BP systolic 107–138; BP diastolic 52–103; PULSE 70–101; RESP 16–34; TEMP 36.6–37.3; O2SAT 87–100; BMI 42.5
[2023-12-05] MEDS: cefepime 2,000 MG in sodium chloride 0.9% (plus) 50 ML 100 MG IV
[2023-12-05 00:02] LABS: Troponin(5th) Baseline 84 ng/L (0-10)
[2023-12-05 00:13] LABS: NT Pro B Type Natriuretic Pept 486 pg/mL (0-125)
[2023-12-05 00:15] LABS: Lactic Acid level (Lactate) 2.9 mmol/L (0.5-2.2)
--- NOTE | 2023-12-05 00:54 | P.HP_ITS ---
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, history of atrial fibrillation on Eliquis, tkv-[id number]-hpewejeea type 2 diabetes mellitus, hypertension, obesity, recent hospitalization at [facility] for obstructive uropathy with urosepsis, ureteral stent in place, recently discharged from [facility], she got home on , she tells me that she has been weak and fatigued and tired since since, decreased ambulation, no fevers, no chills, is having right hip pain, when she was up at [facility], she had chronic appearing fracture with an inclusion, they tapped the right hip, to make sure that there was infection she was told there was no infection but she is waiting on the pathology results, nonetheless, the last time patient's family heard from her was for over 48 hours according to patient she fell and she could not get up off the floor, she was able to crawl, she was able to take her medications, in addition she family had difficulty reaching her as there was issues with her cell phone service, currently her only complaint is left ankle pain she when she fell she twisted her left ankle, she also has complaints of right hip pain which is chronic,no fevers, no chills no headache, blurry vision but she does not feel well she tells me Review of Systems 2 Const: Denies: fever(s) or chills Card: Denies: chest pain Resp: Denies: dyspnea : Denies: flank pain Musc: Reports: joint pain Medications/Allergies Home Medications Medication Instructions Recorded Confirmed Last Taken Type Vitamin D3 1 tab PO DAILY@0600 12/08/20 03/28/21 12/08/20 History apixaban 5 mg tablet (Eliquis) 5 mg PO BID@0600,1800 12/08/20 03/28/21 12/08/20 History atorvastatin 40 mg tablet 40 mg PO DAILY@1800 12/08/20 03/28/21 12/07/20 History glipizide 5 mg tablet, extended 5 mg PO DAILY 12/08/20 03/28/21 12/07/20 History release 24 hr metformin 1,000 mg tablet 1,000 mg PO BID@0600,1800 12/08/20 03/28/21 12/08/20 History prednisone 5 mg tablet See Rx Instructions .Route .COMPLEX 12/08/20 03/28/21 12/08/20 History metoprolol tartrate 50 mg tablet 50 mg PO BID #180 tabs 12/13/20 03/28/21 Unknown Rx acetaminophen 325 mg tablet 325 mg PO QID PRN 03/13/22 Unknown History (Tylenol) irbesartan 300 1 tab PO DAILY 03/13/22 Unknown History mg-hydrochlorothiazide 12.5 mg tablet levothyroxine 75 mcg capsule 12.5 mcg PO DAILY 03/13/22 Unknown History potassium citrate 10 mEq (1,080 See Rx Instructions .Route 07/21/22 Unknown Rx mg) tablet,extended release .COMPLEX #60 tabs Allergies Allergy/AdvReac Type Severity Reaction Status Date / Time RAFA Inhibitors Allergy Unknown ADR-Cough Verified 03/28/21 08:52 Penicillins Allergy ALGY-Anaphy Verified 12/04/23 21:53 laxis PFSH Acute 2 PFSH: Medical History Uric acid urolithiasis Retained ureteral stent Cushings syndrome HEATHER (obstructive sleep apnea) Atrial fibrillation Adrenal insufficiency Hypothyroidism Diabetes HTN (hypertension) Acute pyelonephritis Surgical History History of cataract surgery History of appendectomy Family History Other CAD (coronary artery disease) Diabetes Social History Smoking and tobacco/nicotine status: never used tobacco/nicotine Alcohol intake: never Substance/Drug Use: never Marital status: / Current occupational status: employed Vitals/I&O/Wt Last Vital Signs Temp 97.4 F L 12/04/23 20:11 Pulse 75 12/05/23 00:08 Resp 20 H 12/05/23 00:08 BP 113/62 12/05/23 00:08 Pulse Ox 98 12/05/23 00:08 O2 Del Method Nasal Cannula 12/04/23 22:29 O2 Flow Rate 2 12/04/23 22:29 12/04/23 12/04/23 12/05/23 14:59 22:59 06:59 Intake Total 1000 / 1000 Balance 1000 / 1000 Weight last 48 hrs Weight 90.718 kg Physical Exam 2 Const: COMMON NORMALS: no acute distress and patient oriented x3 HENMT: COMMON NORMALS: normocephalic HEAD & SCALP: normocephalic Eye: COMMON NORMALS: Equal, round and reactive pupils present Neck/C-Spine: COMMON NORMALS: no JVD Resp: COMMON NORMALS: normal respiratory effort, No retractions, No use of accessory muscles and clear to auscultation bilaterally AUSCULTATION: clear to auscultation bilaterally Cardio: COMMON NORMALS: no JVD, regular rate, regular rhythm, S1 normal heart sound present and S2 normal heart sound present RATE: regular rate RHYTHM: regular rhythm HEART SOUNDS: S1 normal heart sound present and S2 normal heart sound present GI: COMMON NORMALS: Normal to inspection, nondistended, normoactive bowel sounds present, Soft to palpation and non-tender Extremity: COMMON NORMALS: no calf tenderness and no pedal edema Neuro: COMMON NORMALS: patient oriented x3, CN's II-XII intact bilaterally and moves all extremities Psych: COMMON NORMALS: mental status grossly normal Skin: OTHER: On examination, left ankle swollen, erythematous, with bruising On examination, right hip, no significant swelling, erythema, tenderness, site of biopsy site looks clean and dry Data 12/04/23 22:19 12/04/23 21:43 Micro: Microbiology 12/04/23 23:20 Blood Culture - Preliminary Blood SPECIMEN COLLECTED 12/04/23 23:03 Blood Culture - Preliminary Blood SPECIMEN COLLECTED A&P Assessment and plan (1) UTI (urinary tract infection): (2) Sepsis: (3) Acute kidney injury: (4) Left ankle pain: Plan Urinary tract infection, with sepsis -Sepsis criteria met, given hypotension in the emergency room, elevated lactic acid, leukocytosis elevated creatinine -CT scan CT/CT kidney stone [id number] IMPRESSION: 1. No hydronephrosis or definite abscess identified. 2. Right ureteral stent is in place. 3. Left renal lesions can be followed with ultrasound. Numerous chronic findings above including cholelithiasis, kidney stones, etc. 4. Severe sigmoid diverticulosis. No small bowel obstruction, abscess or free air. Plan -Admit to ICU, due to concerns for sepsis, possible need of pressors -Start broad-spectrum antibiotic therapy vancomycin, meropenem -Monitor clinical status closely -Gentle IV hydration -Monitor urine output -Full code -Eliquis for DVT prophylaxis Atrial fibrillation, continue Eliquis, hold metoprolol History of panhypopituitarism,, give her 1 dose stress dose hydrocortisone for sepsis as above, resume home prednisone will consider fludrocortisone based on clinical progress Hypertension, hold home blood pressure medications Hypothyroidism continue levothyroxine Left ankle pain XR/XR ankle LT min 3V* [id number] IMPRESSION: 1. Small chip fractures at medial malleolus of uncertain age. 2. Distal fibular old deformity. Just distal to this, there is a subtle nondisplaced fracture likely. Advise appropriate orthopedic follow-up. 3. Advanced swelling. 4. Lateral clear space widening which implies ankle ligamentous instability. 5. Prior ankle trauma. Plan -For now keep nonweightbearing left foot left ankle -Will discuss with orthopedic service in the morning -Will consider CT of left ankle based on clinical progress Fall, elevated CPk, elevated SAGE History of right hip chronic fracture, now healed, with cyst? -Get records from [facility] Attestations 2 Medical Necessity Statement*: Patient requires hospitalization, inpatient, greater than 2 midnights, for UTI with sepsis, left ankle pain, fall Diagnoses UTI (urinary tract infection) N39.0 Sepsis A41.9 Acute kidney injury N17.9 Left ankle pain M25.572
[2023-12-05 00:58] LABS: Troponin 5 2HR 75.57 ng/L (0-10)
[2023-12-05 01:00] LABS: Troponin 5 2HR Delta -8.43 ABS# (0-10)
--- NOTE | 2023-12-05 01:16 | PC.NURSE ---
Received Pt report from Brittani Mckeon RN. No documentation about a fine catheter being inserted during shift or if pt had one prior to arrival.
[2023-12-05 01:19] LABS: Estmated Average Glucose 220; Hemoglobin A1C 9.3 % (4.0-6.0)
[2023-12-05 01:21] LABS: Procalcitonin 0.29 ng/mL (0-0.5); Thyroid Stimulating Hormone 0.08 uIU/mL (0.27-4.20)
[2023-12-05 01:32] LABS: C Reactive Protein 99.4 mg/L (0.0-4.9); Chol HDL Ratio 4.69 mg/dL (0.0-4.40); Cholesterol 164 mg/dL (0-200); HDL Cholesterol 35 mg/dL (60-100); LDL Cholesterol Calculated 50 mg/dL (50-129); LDL HDL Ratio 1.43 RATIO (0.00-3.22); Triglycerides 396 mg/dL (0-150)
[2023-12-05] MEDS: HYDROmorphone 1 mg/mL INJ 1 mL 0.5 MG IVP ×3 (01:51→21:41)
[2023-12-05] MEDS: pantoprazole 40 mg SDV IVP (01:54)
[2023-12-05] MEDS: hydrocortisone 100 mg/2 mL SDV 50 MG IVP (02:29)
[2023-12-05] MEDS: sodium chloride 0.9% 1,000 ML 50 ML IV ×2 (02:31→21:40)
[2023-12-05] MEDS: meropenem 1,000 MG in sodium chloride 0.9% (plus) 50 ML 100 MG IV ×2 (02:39→13:05)
[2023-12-05] MEDS: vancomycin 1,500 MG/300 ML PIGGYBACK 150 MG IV (03:05)
--- NOTE | 2023-12-05 03:10 | PC.NURSE ---
Lantus Patient's blood glucose 221 at 0249. First insulin dose due at 0800. Dr. Bolton contacted and order received for 5 units lantus SUBQ once now. See MAR for details.
--- NOTE | 2023-12-05 03:30 | PC.NURSE ---
Respiratory Panel Patient stated that at [facility] this past week, her roommate was possibly covid positive. Home covid test performed by patient inconclusive. Dr. Bolton notified. Order received for respiratory panel to be completed.
[2023-12-05 03:37] LABS: Glucose Point of Care 221 mg/dL (70-110)
[2023-12-05] MEDS: insulin glargine 100 units/1 mL 5 UNIT SUBCUT (04:31)
[2023-12-05 04:38] LABS: Glucose Point of Care 250 mg/dL (70-110)
[2023-12-05 05:13] LABS: Troponin 5 6HR 58.04 ng/L (0-10)
--- NOTE | 2023-12-05 05:41 | ECG_ITS ---
Test Date: 2023-12-05 Pat Name: Bailey Gayle Department: Room: ICU07 Gender: Female Reception Clerk: : 1950 Requested By: Zane Feldman Order Number: [id number] Danuta MD: Tejas Valladares M.D. Measurements Intervals Heber Rate: 82 P: 0 WA: 0 QRS: -40 QRSD: 90 T: 0 QT: 374 QTc: 439 Interpretive Statements ATRIAL FIBRILLATION WITH ABERRANT CONDUCTION OR VENTRICULAR PREMATURE COMPLEXES LEFT AXIS DEVIATION [QRS AXIS < -30] LOW QRS VOLTAGE IN PRECORDIAL LEADS [QRS DEFLECTION < 1.0 mV IN CHEST LEADS] POSSIBLE ANTERIOR MYOCARDIAL INFARCTION , PROBABLY OLD [30 ms Q WAVE IN V3/V4, OR R < 0.2 mV IN V4] Compared to ECG 12/05/2023 00:17:30 Ventricular premature complex(es) now present Aberrant conduction of supraventricular beat(s) now present Myocardial infarct finding now present ST (T wave) deviation no longer present Electronically Signed On 12-05-2023 10:58:54 SYSTEMS SUPPORT SPECIALIST by Tejas Valladares M.D. [id number]
[2023-12-05] MEDS: apixaban 5 mg Tablet PO ×2 (06:08→17:33)
[2023-12-05 06:42] LABS: Adenovirus Not Detected (NOT DETECT); Chlamydia Pneumoniae Not Detected (NOT DETECT); Coronavirus 229E,HKU1,NL63,OC4 Not Detected (NOT DETECT); Human Metapneumovirus Not Detected (NOT DETECT); Human Rhinovirus/Enterovirus Not Detected (NOT DETECT); Influenza A Not Detected (NOT DETECT); Influenza A H1 Not Detected (NOT DETECT); Influenza A H1-2009 Not Detected (NOT DETECT); Influenza A H3 Not Detected (NOT DETECT); Influenza B Not Detected (NOT DETECT); Mycoplasma Pneumoniae Not Detected (NOT DETECT); Parainfluenza Virus Type 1 Not Detected (NOT DETECT); Parainfluenza Virus Type 2 Not Detected (NOT DETECT); Parainfluenza Virus Type 3 Not Detected (NOT DETECT); Parainfluenza Virus Type 4 Not Detected (NOT DETECT); Respiratory Syncytial Virus A Not Detected (NOT DETECT); Respiratory Syncytial Virus B Not Detected (NOT DETECT); SARS-COV-2 Not Detected (NOT DETECT)
[2023-12-05] MEDS: predniSONE 5 mg Tablet PO (06:42)
[2023-12-05 07:56] LABS: Glucose Point of Care 254 mg/dL (70-110)
[2023-12-05] MEDS: levothyroxine 25 mcg Tablet 12.5 MCG PO (09:24)
[2023-12-05] MEDS: insulin lispro 100 unit/1 mL SUBCUT ×3 (09:24→17:33)
--- NOTE | 2023-12-05 09:53 | USR_ITS ---
PROCEDURE INFORMATION: Exam: US Retroperitoneal; Complete; Kidneys and Bladder Exam date and time: 12/05/2023 10:23 AM Age: 73 years old Clinical indication: Abnormal findings; Abnormal radiologic finding of the abdomen; Radiologic exam and body structure: CT; Additional info: L renal lesions TECHNIQUE: Imaging protocol: Real-time ultrasound of the retroperitoneum with image documentation. Complete exam focused on the kidneys and bladder. COMPARISON: CT kidney stone [id number] 12/04/2023 11:39 PM FINDINGS: Right kidney: Right kidney measures 12.8 cm in length and contains cysts measuring up to 2 cm in diameter. No calculus, mass, or obstruction. Renal echogenicity is within normal limits. Left kidney: Left kidney measures 10.5 cm in length and contains cysts up to 0.6 cm.No calculus, mass, or obstruction. Renal echogenicity is within normal limits. Urinary bladder: Urinary bladder is decompressed by Mendez catheter limiting assessment of the wall. US/US renal BI* [id number] IMPRESSION: Bilateral renal cortical cysts. Bladder decompressed by Mendez catheter.
[2023-12-05 11:35] LABS: Glucose Point of Care 240 mg/dL (70-110)
[2023-12-05 16:56] LABS: Glucose Point of Care 206 mg/dL (70-110)
[2023-12-05] MEDS: atorvastatin 40 mg Tablet PO (17:33)
[2023-12-05] MEDS: predniSONE 5 mg Tablet 2.5 MG PO (17:34)
--- NOTE | 2023-12-05 20:51 | P.PN_ITS ---
Subjective 2 Subjective: She denies any new symptoms. Blood pressure has improved. Vitals/I&O/Wt Last Vital Signs Temp 97.8 F 12/05/23 19:32 Pulse 88 12/05/23 19:32 Resp 18 12/05/23 19:32 BP 127/65 12/05/23 19:32 Pulse Ox 95 12/05/23 19:32 O2 Del Method Nasal Cannula 12/05/23 19:32 O2 Flow Rate 2 12/05/23 19:32 12/05/23 12/05/23 12/05/23 06:59 14:59 22:59 Intake Total 1400 / 1400 50 / 50 Output Total 410 / 410 Balance 990 / 990 50 / 50 Weight last 48 hrs Weight 98.883 kg Weight 98.883 kg Weight 90.718 kg Physical Exam 2 Const: COMMON NORMALS: patient oriented x3 and alert GENERAL APPEARANCE: c ooperative ORIENTATION/CONSCIOUSNESS: Yes awake HENMT: COMMON NORMALS: oropharynx normal Neck/C-Spine: COMMON NORMALS: no JVD Resp: COMMON NORMALS: normal respiratory effort and clear to auscultation bilaterally AUSCULTATION: clear to auscultation bilaterally Cardio: COMMON NORMALS: no JVD, regular rhythm, S1 normal heart sound present, S2 normal heart sound present and No murmurs present (Cardio) RHYTHM: regular rhythm HEART SOUNDS: S1 normal heart sound present and S2 normal heart sound present GI: COMMON NORMALS: Normal to inspection, nondistended, normoactive bowel sounds present, Soft to palpation and non-tender PALPATION: Yes Soft to palpation Extremity: COMMON NORMALS: no joint enlargement and no pedal edema OTHER: LLE boot Neuro: COMMON NORMALS: patient oriented x3 and moves all extremities S ENSORIUM/ORIENTATION: Yes alert Skin: COMMON NORMALS: no rashes or lesions noted GENERAL SKIN EXAM: no rashes or lesions noted Urinary Catheter Management: Mendez: Cath Placed During This Visit: yes Reason for Continuing Indwelling Catheter: Accurate Measurement of Urinary Output in Critically Ill Patients Urinary Catheter Date of Insertion: 12/04/23 Data 12/04/23 22:19 12/04/23 21:43 Micro: Microbiology 12/04/23 23:20 Blood Culture - Preliminary Blood SPECIMEN COLLECTED 12/04/23 23:03 Blood Culture - Preliminary Blood SPECIMEN COLLECTED A&P Assessment and plan (1) UTI (urinary tract infection): (2) Sepsis: (3) Acute kidney injury: (4) Left ankle pain: Plan Urinary tract infection, with sepsis: Reviewed vitals, CBC, CMP, troponin series. CT abdomen pelvis. Chest x-ray. NT proBNP. UA. Respiratory viral panel. Septic shock resolved. Avoided pressor. Stop IV fluid. Transfer out of ICU. Requested kidney ultrasound for additional assessment of left kidney lesions incidentally seen on CT. Continue meropenem, vancomycin empirically. Follow-up urine culture. -CT scan CT/CT kidney stone [id number] IMPRESSION: 1. No hydronephrosis or definite abscess identified. 2. Right ureteral stent is in place. 3. Left renal lesions can be followed with ultrasound. Numerous chronic findings above including cholelithiasis, kidney stones, etc. 4. Severe sigmoid diverticulosis. No small bowel obstruction, abscess or free air. Atrial fibrillation, continue Eliquis, hold metoprolol History of panhypopituitarism,, give her 1 dose stress dose hydrocortisone for sepsis as above, resume home prednisone will consider fludrocortisone based on clinical progress Hypertension, hold home blood pressure medications Hypothyroidism continue levothyroxine Left ankle pain XR/XR ankle LT min 3V* [id number] IMPRESSION: 1. Small chip fractures at medial malleolus of uncertain age. 2. Distal fibular old deformity. Just distal to this, there is a subtle nondisplaced fracture likely. Advise appropriate orthopedic follow-up. 3. Advanced swelling. 4. Lateral clear space widening which implies ankle ligamentous instability. 5. Prior ankle trauma. Will additionally assess right foot with MRI with and without contrast given recent concern for possibility of right hip infection, although it seems aspirate was sterile. Reassess kidney function, noted SAGE, creatinine up to 1.5. Once kidney function improves obtain MRI with and without contrast and consider podiatry consultation. Has been fitted with a boot. PT, OT assessment. Follow-up with orthopedics and/or podiatry. Fall, elevated CPk, elevated SAGE History of right hip chronic fracture, now healed, with cyst? -Get records from [facility] Attestations 2 Medical Necessity Statement*: Continue admission for assessment management of improving sepsis with complicated UTI, right ureteral stent in place, recent ureterolithiasis. Diagnoses UTI (urinary tract infection) N39.0 Sepsis A41.9 Acute kidney injury N17.9 Left ankle pain M25.572
[2023-12-05 22:07] LABS: Glucose Point of Care 180 mg/dL (70-110)
[2023-12-06] VITALS (10 sets, daily range): BP systolic 101–142; BP diastolic 65–81; PULSE 81–119; RESP 17–26; TEMP 36.3–36.9; O2SAT 93–99
[2023-12-06] MEDS: pantoprazole 40 mg SDV IVP (00:17)
[2023-12-06] MEDS: meropenem 1,000 MG in sodium chloride 0.9% (plus) 50 ML 100 MG IV ×2 (00:17→11:41)
[2023-12-06] MEDS: HYDROmorphone 1 mg/mL INJ 1 mL 0.5 MG IVP ×2 (02:19→09:02)
[2023-12-06] MEDS: vancomycin 1,000 MG in sodium chloride 0.9% 250 ML 250 MG IV (02:20)
[2023-12-06 04:51] LABS: Basophils # 0.1 10^3/uL (0.0-0.1); Basophils % 0.5 %; Eosinophils # 0.2 10^3/uL (0.0-0.8); Eosinophils % 2.1 %; Lymphocytes # 1.6 10^3/uL (0.8-4.8); Lymphocytes % 16.3 %; Mean Corpuscular HGB Conc 31.2 g/dL (30-55); Mean Corpuscular Hemoglobin 30.6 pg (27-33); Mean Corpuscular Volume 98.1 fl (85-98); Mean Platelet Volume 10.5 fL (7.4-10.4); Monocytes # 0.8 10^3/uL (0.2-0.9); Neutrophils # 6.39 10^3/uL (1.8-7.7); Nucleated Red Blood Cells # 0.1 /100WBC; Nucleated Red Blood Cells % 0.5 %; Platelet Count 366 10^3/cmm (157-399); Red Blood Count 2.65 10^6/uL (3.85-5.65); Red Cell Distribution Width 17.3 % (12.1-15.1); White Blood Count 9.53 10^3/uL (3.29-11.43)
[2023-12-06 05:10] LABS: Creatine Phosphokinase 49 U/L (26-192)
[2023-12-06 05:14] LABS: Alanine Aminotransferase 19 U/L (0-33); Alkaline Phosphatase 75 U/L (35-105); Anion Gap 14.3 (5-19); Aspartate Amino Transferase 15 U/L (0-32); Blood Urea Nitrogen 32 mg/dL (8-23); Carbon Dioxide 23 mmol/L (22-29); Chloride 108 mmol/L (98-107); Globulin 2.1 g/dL (1.3-4.6); Glucose 166 mg/dL (65-115); Osmolality Calculated 303 mOsm/kg (285-295); Potassium 4.3 mmol/L (3.5-5.1); Sodium 141 mmol/L (136-145); Total Bilirubin 0.4 mg/dL (0.15-1.2); Total Protein 5.1 g/dL (6.6-8.7)
[2023-12-06] MEDS: apixaban 5 mg Tablet PO ×2 (05:31→16:58)
[2023-12-06] MEDS: predniSONE 5 mg Tablet PO (05:31)
--- NOTE | 2023-12-06 06:00 | USCV_ITS ---
Bailey Gayle Age: 73 Gender: F : 1950 Exam Date: 12/06/2023 08:15 Ordering Phys: Jaison Nguyen MD Technologist: Bladimir Gallegos Exam Location: [facility] [place] Indication: chest pain BP: 143 / 83 HR: 104 Rhythm: Sinus Technical Quality: Adequate MEASUREMENTS (Male / Female) Normal Values 2D ECHO LV Diastolic Diameter PLAX 4.0 cm 4.2 - 5.9 / 3.9 - 5.3 cm LV Systolic Diameter PLAX 2.1 cm IVS Diastolic Thickness 1.3 cm 0.6 - 1.0 / 0.6 - 0.9 cm IVS Systolic Thickness 1.6 cm LVPW Diastolic Thickness 1.3 cm 0.6 - 1.0 / 0.6 - 0.9 cm LVPW Systolic Thickness 1.6 cm LVOT Diameter 2.1 cm LV Ejection Fraction 2D Teich 78.7 % LV Ejection Fraction MOD 2C 73.7 % LV Ejection Fraction 2C AL 75.3 % LA Diameter 4.5 cm M-MODE Aortic Annulus Diameter 3.1 cm LA Ao Ratio MM 1.6 MV E Point Septal Separation 0.6 cm DOPPLER AV Peak Velocity 127.0 cm/s LVOT Peak Velocity 111.7 cm/s AV Area Cont Eq vti 3.1 cm squared AV Area Cont Eq pk 2.9 cm squared MV Area PHT 4.9 cm squared Mitral E to A Ratio 3.0 MV E' Velocity 140.0 cm/s TR Peak Velocity 268.7 cm/s TR Peak Gradient 28.9 mmHg TV Peak E Velocity 82.0 cm/s Right Atrial Pressure 3.0 mmHg Pulmonary Artery Systolic Pressu 31.9 mmHg RV Acceleration Time 0.2 s FINDINGS Left Ventricle Left ventricle is normal in size. LV systolic function is normal with EF of 60 to 65%. No regional wall motion abnormalities are seen. Right Ventricle Grossly normal Right Atrium Normal in size Left Atrium Normal in size Mitral Valve Moderate mitral annular calcification is seen. Trace mitral regurgitation Aortic Valve Structurally normal aortic valve. No significant aortic stenosis. Tricuspid Valve Mild tricuspid regurgitation. RVSP is normal. Pulmonic Valve Not well-visualized. Pericardium Normal Aorta Normal in size IVC Not well visualized CONCLUSIONS Technically limited quality echocardiogram. LV systolic function is normal with a EF of 60 to 65%. Trace mitral regurgitation. Mild tricuspid regurgitation. Compared to prior echocardiogram from 2019, no significant changes are seen Tejas Valladares MD (Electronically Signed) Final Date: 06 December 2023 12:18 S
[2023-12-06 06:48] LABS: Glucose Point of Care 168 mg/dL (70-110)
[2023-12-06] MEDS: insulin lispro 100 unit/1 mL SUBCUT ×4 (09:01→22:53)
[2023-12-06] MEDS: levothyroxine 25 mcg Tablet 12.5 MCG PO (09:02)
--- NOTE | 2023-12-06 09:23 | PC.CHAP ---
Pastoral Care Encounter/Spiritual Assessment Type of Contact [] Declined home economics teacher visit [] Patient/Family/Request visit [] Outpatient visit [] Follow-up visit [] Physician referral [] Code/Alert [x] Routine visit [] Staff referral [] Actively dying [] Patient sleeping [] Family support [] [] Out of room [] Palliative care [] [] Receiving care in room [] Pre-surgical visit [] Trauma [] Long length of stay [] ICU visit [] Other: Relational/Emotional Strength [x] Patient feels connected with others/family/visitors/staff [] Distress [] Loneliness/isolation [] Abandonment Spirituality of Patient [x] Person of Chanelle [] Attends Pentecostal of their Chanelle [x] Believes in Prayer [] Reads Bible or Judaism materials [] There are Spiritual issues to be addressed Supervisor Furnace Room Interventions [x] Prayer [x] Active listening [] Non-anxious presence [x] Spiritual/emotional support [] Crisis/trauma care [] Spiritual counseling [] Bereavement support [] Provided bereavement packet [] Provided Bible/devotional materials [] Provided toy/stuffed animal, coloring book to patient or family member [] Provided Communion [] Anointing/[place] [] Salvation [x] Completed spiritual assessment [] Other: Impact on Illness or Injury [] Angry [] Fearful [] Anxious [] Often cries [] Exhaustion [] Unable to work [] Unable to attend caodaism [] Unable to walk/stand [] Unable to read [] Unable to drive [] Unable to eat/drink [] Unable to sleep [] Unable to be with family [] Patient intubated [] Other: Summary Time spent with patient 5 min
[2023-12-06 11:37] LABS: Glucose Point of Care 245 mg/dL (70-110)
[2023-12-06 12:59] LABS: Free T4 Free Thyroxine 0.33 ng/dL (0.82-1.77); Procalcitonin 0.23 ng/mL (0-0.5); T3 Free 0.9 PG/ML (2.0-4.4)
[2023-12-06] MEDS: metoprolol tartrate 25 mg Tablet PO ×2 (13:20→20:09)
[2023-12-06 13:24] LABS: Iron 28 ug/dL (37-145); Percent Saturation 10.4 % (20-50); Total Iron Binding Capacity 269 mcg/dl; Unsaturated Iron Binding 241 ug/dL (112-347)
[2023-12-06 13:40] LABS: Vitamin B12 154 pg/mL (232-1245)
[2023-12-06] MEDS: sodium chloride 0.9% 1,000 ML 100 ML IV (16:23)
--- NOTE | 2023-12-06 16:32 | P.PN_ITS ---
Subjective 2 Subjective: Hospital course, labs appreciated. Examination sitting up in the bed. Patient is awake and alert, denies any nausea, vomiting, headache. Complaining of pain in the foot. Denies any new complaints. Has remained hemodynamically stable and afebrile. Continues to be slightly tachycardic today. Vitals/I&O/Wt Last Vital Signs Temp 97.5 F L 12/06/23 12:14 Pulse 119 H 12/06/23 12:14 Resp 20 H 12/06/23 12:14 BP 142/80 12/06/23 12:14 Pulse Ox 93 12/06/23 12:14 O2 Del Method Nasal Cannula 12/06/23 12:14 O2 Flow Rate 2 12/06/23 08:19 12/06/23 12/06/23 12/06/23 06:59 14:59 22:59 Intake Total 300 / 1307.5 1346.667 / 1346.667 183.333 / 1530.000 Output Total 1200 / 1200 Balance -900 / 107.5 1346.667 / 1346.667 183.333 / 1530.000 Weight last 48 hrs Weight 95.878 kg Weight 98.883 kg Weight 98.883 kg Weight 90.718 kg Physical Exam 2 Const: COMMON NORMALS: no acute distress, patient oriented x3 and alert G ENERAL APPEARANCE: cooperative ORIENTATION/CONSCIOUSNESS: Yes awake HENMT: COMMON NORMALS: normocephalic and oropharynx normal HEAD & SCALP: n ormocephalic Eye: COMMON NORMALS: Equal, round and reactive pupils present PUPIL: Yes Equal, round and reactive pupils present Neck/C-Spine: COMMON NORMALS: no JVD Resp: COMMON NORMALS: normal respiratory effort, No retractions, No use of accessory muscles and clear to auscultation bilaterally AUSCULTATION: clear to auscultation bilaterally Cardio: COMMON NORMALS: no JVD, regular rate, regular rhythm, S1 normal heart sound present, S2 normal heart sound present and No murmurs present (Cardio) RATE: regular rate RHYTHM: regular rhythm HEART SOUNDS: S1 normal heart sound present and S2 normal heart sound present GI: COMMON NORMALS: Normal to inspection, nondistended, normoactive bowel sounds present, Soft to palpation and non-tender PALPATION: Yes Soft to palpation Extremity: COMMON NORMALS: no joint enlargement, no calf tenderness and no pedal edema OTHER: LLE boot Neuro: COMMON NORMALS: patient oriented x3, CN's II-XII intact bilaterally and moves all extremities SENSORIUM/ORIENTATION: Yes alert Psych: COMMON NORMALS: mental status grossly normal Skin: COMMON NORMALS: no rashes or lesions noted GENERAL SKIN EXAM: no rashes or lesions noted OTHER: On examination, left ankle swollen, erythematous, with bruising On examination, right hip, no significant swelling, erythema, tenderness, site of biopsy site looks clean and dry Urinary Catheter Management: Mendez: Cath Placed During This Visit: yes Reason for Continuing Indwelling Catheter: Other Urinary Catheter Date of Insertion: 12/04/23 Data 12/06/23 04:05 12/06/23 04:05 Micro: Microbiology 12/05/23 Unknown Urine Culture - Final Urine,Clean Catch 12/04/23 23:20 Blood Culture - Preliminary Blood NEGATIVE TO DATE 12/04/23 23:03 Blood Culture - Preliminary Blood NEGATIVE TO DATE A&P Assessment and plan (1) Sepsis: Present on admission. Ruled in with tachycardia, leukocytosis with endorgan damage from acute kidney injury. Keep mean artery pressure 65. Recent history of pyelonephritis with concerns for left hip infected collection. Recently admitted at [facility]. Will request documents. Follow-up blood cultures. Will request culture history from [facility]. Continue with empiric antibiotics with IV vancomycin and meropenem for now. Continue antibiotics for next 24 hours. If remains hemodynamically stable and afebrile will discontinue antibiotics as patient has remained afebrile with resolution of leukocytosis within next 24 hours. Low concern for infection for now. (2) Acute kidney injury: Creatinine trending down to 1.2. Baseline creatinine around 1.1. Increase fluid to 100 cc/h for now. Strict input output charting, daily weights. Monitor BMP daily for now. Medical reconciliation done for nephrotoxic drugs. (3) Closed left fibular fracture: Placed in boot in the ER. Will consult podiatry for further recommendations. Weightbearing and physical therapy as per podiatry team. Patient does have mild edema around the left ankle. For now low concerns for osteomyelitis. Will hold off on MRI for now. (4) UTI (urinary tract infection): (5) Diabetes: Chronically on steroids. Insulin sliding scale before meals and at bedtime. A1c of 9.3. Takes glipizide 5 mg daily at home. Will discuss further with patient regarding possibility of switching over to insulin. (6) Hypothyroidism: With history of Austin syndrome. TSH 0.08. Takes levothyroxine 12.5 mg daily at home. T3 and free T4. Will increase dose of levothyroxine accordingly. (7) Cushings syndrome: (8) HTN (hypertension): Goal pressure less than 140/90 mmHg with mean over 65. Patient slightly tachycardic. Restart metoprolol at 25 mg twice daily. Will monitor blood pressures. Qualifiers: Hypertension type: essential hypertension Qualified Code(s): I10 - Essential (primary) hypertension (9) Atrial fibrillation: Metoprolol as above. (10) Left ankle pain: Plan Full code Cardiac carb consistent diet. Protonix for PUD prophylaxis Eliquis for DVT prophylaxis. Attestations 2 Medical Necessity Statement*: Requires further hospitalization for management of left ankle fracture with concerns for sepsis in a patient with recent admission to an outside hospital for pyelonephritis, resolving SAGE Diagnoses Sepsis A41.9 Acute kidney injury N17.9 Closed left fibular fracture S82.402A UTI (urinary tract infection) N39.0 Diabetes E11.9 Hypothyroidism E03.9 Cushings syndrome E24.9 Essential hypertension I10 Hypertension type: essential hypertension Atrial fibrillation I48.91 Left ankle pain M25.572
--- NOTE | 2023-12-06 16:55 | P.CONIM_ITS ---
Providers/Reason For Consult 2 Consulting Physician/Specialty*: Bruce Simon D.P.M./podiatry Reason for Consult*: left ankle pain Attending Physician: Tobias Valentino MD Primary Care Provider: Mireille Lozoya MD History of Present Illness History of Present Illness Bailey Gayle is a 73 year old female admitted to the hospital service for sepsis secondary to a UTI, SAGE and left ankle pain on admission per patient complaint. I was consulted for evaluation of left ankle pain. Review of Systems 2 Const: Denies: fever(s) or chills Card: Denies: chest pain or dyspnea on exertion Resp: Denies: dyspnea or productive cough GI: Denies: abdominal pain, nausea or vomiting : Denies: difficulty voiding Musc: Reports: joint pain, joint swelling and limited range of motion Skin/Breast: Denies: changes in skin color or dry skin Neuro: Denies: numbness in extremities or weakness in extremities Psych: Denies: anxiety Johnnie/Lymph: Denies: easy bruising or easy bleeding Medications/Allergies Home Medications Medication Instructions Recorded Confirmed Last Taken Type apixaban 5 mg tablet (Eliquis) 5 mg PO BID@0600,1800 12/08/20 12/05/23 12/08/20 History atorvastatin 40 mg tablet 40 mg PO QPM 12/08/20 12/05/23 12/07/20 History glipizide 5 mg tablet, extended 5 mg PO QPM 12/08/20 12/05/23 12/07/20 History release 24 hr metformin 1,000 mg tablet 1,000 mg PO BID@0600,1800 12/08/20 12/05/23 12/08/20 History prednisone 5 mg tablet See Rx Instructions .Route .COMPLEX 12/08/20 12/05/23 12/08/20 History metoprolol tartrate 50 mg tablet 50 mg PO BID #180 tabs 12/13/20 12/05/23 Unknown Rx acetaminophen 325 mg tablet 325 mg PO QID PRN Pain 03/13/22 12/05/23 Unknown History (Tylenol) levothyroxine 75 mcg capsule 12.5 mcg PO DAILY 03/13/22 12/05/23 Unknown History cholecalciferol (vitamin D3) 25 25 mcg PO DAILY 12/05/23 12/05/23 Unknown History mcg (1,000 unit) tablet (Vitamin D3) fenofibrate nanocrystallized 48 mg 48 mg PO DAILY 12/05/23 12/05/23 Unknown History tablet irbesartan 150 mg tablet 150 mg PO DAILY 12/05/23 12/05/23 Unknown History potassium citrate 10 mEq (1,080 10 meq PO BID 12/05/23 12/05/23 Unknown History mg) tablet,extended release Allergies Allergy/AdvReac Type Severity Reaction Status Date / Time RAFA Inhibitors Allergy Unknown ADR-Cough Verified 12/05/23 09:47 Penicillins Allergy ALGY-Anaphy Verified 12/05/23 09:47 laxis Current Medications Generic Name Dose Route Start Last Admin Trade Name Freq PRN Reason Stop Dose Admin Apixaban 5 mg 12/05/23 06:00 12/06/23 05:31 Apixaban 5 Mg Tablet PO 5 mg BID@0600,1800 EARNEST Administration Atorvastatin Calcium 40 mg 12/05/23 18:00 12/05/23 17:33 Atorvastatin 40 Mg Tablet PO 40 mg DAILY@1800 EARNEST Administration Hydromorphone HCl 0.5 mg 12/05/23 01:37 12/06/23 09:02 Hydromorphone 1 Mg/Ml Inj 1 Ml IVP 0.5 mg Q4H PRN Administration PAIN Meropenem 1,000 mg/ Sodium 50 mls @ 100 mls/hr 12/05/23 01:00 12/06/23 13:16 Chloride IV Infused 0100,1300 EARNEST Infusion Protocol Vancomycin HCl 1,000 mg/ 250 mls @ 250 mls/hr 12/06/23 02:00 12/06/23 03:25 Sodium Chloride IV Infused 0200 EARNEST Infusion Sodium Chloride 1,000 mls @ 100 mls/hr 12/05/23 01:00 12/06/23 16:23 Sodium Chloride 0.9% IV 100 mls/hr .Q10H EARNEST Administration Metoprolol Tartrate 25 mg 12/06/23 12:30 12/06/23 13:20 Metoprolol Tartrate 25 Mg Tablet PO 25 mg BID@0900,2100 EARNEST Administration Pantoprazole Sodium 40 mg 12/05/23 01:00 12/06/23 00:17 Pantoprazole 40 Mg Sdv IVP 40 mg Q24H EARNEST Administration Prednisone 5 mg 12/05/23 06:30 12/06/23 05:31 Prednisone 5 Mg Tablet PO 5 mg 0600 EARNEST Administration Prednisone 2.5 mg 12/05/23 18:00 12/05/23 17:34 Prednisone 5 Mg Tablet PO 2.5 mg 1800 EARNEST Administration PFSH Acute 2 PFSH: Medical History (Updated 12/06/23 @ 17:35 by Bruce Simon DPM) Uric acid urolithiasis Retained ureteral stent Cushings syndrome HEATHER (obstructive sleep apnea) Atrial fibrillation Adrenal insufficiency Hypothyroidism Diabetes HTN (hypertension) Acute pyelonephritis Surgical History History of cataract surgery History of appendectomy Family History Other CAD (coronary artery disease) Diabetes Social History Smoking and tobacco/nicotine status: never used tobacco/nicotine Alcohol intake: never Substance/Drug Use: never Marital status: / Current occupational status: employed Vitals/I&O/Wt Last Vital Signs Temp 97.5 F L 12/06/23 12:14 Pulse 119 H 12/06/23 12:14 Resp 20 H 12/06/23 12:14 BP 142/80 12/06/23 12:14 Pulse Ox 93 12/06/23 12:14 O2 Del Method Nasal Cannula 12/06/23 12:14 O2 Flow Rate 2 12/06/23 08:19 12/06/23 12/06/23 12/06/23 06:59 14:59 22:59 Intake Total 300 / 1307.5 1346.667 / 1346.667 183.333 / 1530.000 Output Total 1200 / 1200 Balance -900 / 107.5 1346.667 / 1346.667 183.333 / 1530.000 Weight last 48 hrs Weight 211 lb 6 oz Weight 218 lb Weight 218 lb Weight 200 lb Physical Exam 2 Const: COMMON NORMALS: no acute distress, patient oriented x3 and alert HENMT: COMMON NORMALS: normocephalic HEAD & SCALP: normocephalic Eye: COMMON NORMALS: Equal, round and reactive pupils present, EOMs intact bilaterally and conjunctivae normal CONJUNCTIVA: Yes conjunctivae normal P UPIL: Yes Equal, round and reactive pupils present Chest: CHEST: Yes Symmetrical chest wall rise Resp: COMMON NORMALS: normal respiratory effort, No use of accessory muscles and clear to auscultation bilaterally EFFORT & INSPECTION: Yes able to speak in complete sentences and Yes symmetric chest movement AUSCULTATION: clear to auscultation bilaterally Cardio: COMMON NORMALS: regular rate, regular rhythm, No murmurs present (Cardio) and Peripheral pulses 2+ throughout RATE: regular rate RHYTHM: r egular rhythm PERIPHERAL PULSES: Peripheral pulses 2+ throughout Extremity: COMMON NORMALS: capillary refill normal, no calf tenderness and no pedal edema (Focal edema right ankle medial and lateral malleolus) GENERAL: Y es edema LEFT LOWER EXTREMITY: Yes ankle joint (Pain at medial and lateral malleolus.) Left ankle: Yes inspection (No abrasion or laceration), Yes palpation (Pain to palpation medial and lateral malleolus.), Yes ROM (Guarded secondary to pain), Yes neurovascular exam (Dorsalis pedis and posterior tibial arteries palpable) and Yes other Neuro: COMMON NORMALS: patient oriented x3 SENSORIUM/ORIENTATION: Yes alert Psych: COMMON NORMALS: mental status grossly normal and cooperative Skin: COMMON NORMALS: no wounds GENERAL SKIN EXAM: no erythema TRAUMA: n o lacerations HAIR: general thinning Urinary Catheter Management: Mendez: Cath Placed During This Visit: yes Reason for Continuing Indwelling Catheter: Other Urinary Catheter Date of Insertion: 12/04/23 Data 12/06/23 04:05 12/06/23 04:05 Micro: Microbiology 12/05/23 Unknown Urine Culture - Final Urine,Clean Catch 12/04/23 23:20 Blood Culture - Preliminary Blood NEGATIVE TO DATE 12/04/23 23:03 Blood Culture - Preliminary Blood NEGATIVE TO DATE A&P Assessment and plan (1) Left ankle pain: Qualifiers: Chronicity: acute Qualified Code(s): M25.572 - Pain in left ankle and joints of left foot (2) Closed left fibular fracture: Qualifiers: Encounter type: initial encounter Fibula location: distal Fracture morphology: other fracture Qualified Code(s): S82.832A - Other fracture of upper and lower end of left fibula, initial encounter for closed fracture Plan 73-year-old female who sustained a fall within the past week and acute onset of left ankle pain. X-ray 12/04/2023 Per my interpretation patient has a transverse fracture of the medial malleolus as well as a avulsion fracture of the distal medial malleolus left ankle. There is a Roberto Mendez B fracture of the left distal fibula. These findings are conflicting with radiology report. My recommendation is a CT scan left ankle without contrast to further evaluate fracture pattern. -Nonweightbearing to the left lower extremity at this time -Left lower extremity immobilized with cam boot to be worn at all times. -Advised patient to elevate left foot while resting. Will follow-up once CT scan has been completed. Consult Attestations 2 Medical Necessity Statement: Left ankle fracture Coding Level of Care Code Acute Code for Chg Fwd Diagnoses Acute left ankle pain M25.572 Chronicity: acute Other closed fracture of distal end of left fibula, initial encounter S82.556Z Encounter type: initial encounter Fibula location: distal Fracture morphology: other fracture
[2023-12-06] MEDS: atorvastatin 40 mg Tablet PO (16:58)
[2023-12-06] MEDS: predniSONE 5 mg Tablet 2.5 MG PO (16:58)
--- NOTE | 2023-12-06 17:05 | CTR_ITS ---
PROCEDURE INFORMATION: Exam: CT Left Lower Extremity Without Contrast, Ankle Exam date and time: 12/06/2023 9:03 PM Age: 73 years old Clinical indication: Screening exam; Acute ankle fracture eval for ben FX TECHNIQUE: Imaging protocol: CT of the left lower extremity without contrast was performed. Exam focused on the ankle. Radiation optimization: All CT scans at this facility use at least one of these dose optimization techniques: automated exposure control; mA and/or kV adjustment per patient size (includes targeted exams where dose is matched to clinical indication); or iterative reconstruction. COMPARISON: CR (LOW EXM, ) 12/04/2023 9:24 PM RADIATION DOSE METRICS: Total DLP (mGy-cm): 127 FINDINGS: Bones/joints: There is a distal fibular oblique comminuted fracture at the level of the distal tibiofibular syndesmosis with minimal anterior displacement of the fracture fragments. There is a nondisplaced fracture of the anterior aspect of the medial malleolus. There is a tiny avulsion fracture at the medial aspect of the medial malleolus. There is a corticated bone fragment at the tip of the lateral malleolus and another one at the tip of the medial malleolus, sequelae of prior injury. Type 2 os navicularis. There is a moderate ankle joint and moderate subtalar joint effusion. There is an inferior calcaneal spur. There are 2 joint bodies in the posterior aspect of the ankle joint. Old fracture deformity of the anterior process of the calcaneus. Soft tissues: There is severe soft tissue swelling, skin thickening and subcutaneous fat stranding at the distal leg, more at the anterior and lateral aspect, extending to the ankle and dorsum of the foot. There are tiny densities in the subcutaneous tissues at the dorsum of the foot to be correlated with foreign bodies. No soft tissue air. There are Achilles enthesophytes. No tendon entrapment. CT/CT ankle LT wo con* [id number] IMPRESSION: 1. Bimalleolar fracture consistent with Mendez type B injury. 2. No soft tissue emphysema to suggest open fracture. No tendon entrapment.
[2023-12-06 17:09] LABS: Glucose Point of Care 239 mg/dL (70-110)
--- NOTE | 2023-12-06 17:24 | PC.NURSE ---
Pt states she no longer wants to take hydromorphone due to confusion.
[2023-12-06] MEDS: HYDROcodone-acetaminophen 5-325 mg Tablet 1 TAB PO (20:09)
[2023-12-06 20:52] LABS: Glucose Point of Care 197 mg/dL (70-110)
[2023-12-06] MEDS: oxyCODONE-APAP 10-325 mg Tablet 1 TAB PO (23:00)
[2023-12-07] VITALS (13 sets, daily range): BP systolic 107–130; BP diastolic 60–84; PULSE 64–115; RESP 14–20; TEMP 36.4–37; O2SAT 92–98
[2023-12-07] MEDS: ketorolac 30 mg/mL INJ 15 MG IVP (00:40)
[2023-12-07] MEDS: meropenem 1,000 MG in sodium chloride 0.9% (plus) 50 ML 100 MG IV (00:41)
[2023-12-07] MEDS: pantoprazole 40 mg SDV IVP (00:42)
[2023-12-07] MEDS: oxyCODONE-APAP 10-325 mg Tablet 1 TAB PO ×4 (03:01→20:04)
[2023-12-07] MEDS: sodium chloride 0.9% 1,000 ML 100 ML IV (03:01)
[2023-12-07] MEDS: vancomycin 1,000 MG in sodium chloride 0.9% 250 ML 250 MG IV (03:02)
[2023-12-07 05:15] LABS: Hematocrit 24.9 % (36-47); Mean Corpuscular HGB Conc 30.9 g/dL (30-55); Mean Corpuscular Hemoglobin 30.8 pg (27-33); Mean Corpuscular Volume 99.6 fl (85-98); Mean Platelet Volume 10.8 fL (7.4-10.4); Platelet Count 346 10^3/cmm (157-399); Red Cell Distribution Width 17.1 % (12.1-15.1); White Blood Count 9.05 10^3/uL (3.29-11.43)
[2023-12-07] MEDS: predniSONE 5 mg Tablet PO (05:18)
[2023-12-07] MEDS: apixaban 5 mg Tablet PO ×2 (05:18→17:33)
[2023-12-07 05:37] LABS: Alanine Aminotransferase 16 U/L (0-33); Albumin Level 2.7 g/dL (3.5-5.2); Alkaline Phosphatase 80 U/L (35-105); Aspartate Amino Transferase 17 U/L (0-32); Blood Urea Nitrogen 26 mg/dL (8-23); Calcium 7.4 mg/dL (8.5-10.5); Carbon Dioxide 22 mmol/L (22-29); Chloride 110 mmol/L (98-107); Globulin 2.4 g/dL (1.3-4.6); Glucose 173 mg/dL (65-115); Osmolality Calculated 299 mOsm/kg (285-295); Sodium 140 mmol/L (136-145); Total Bilirubin 0.3 mg/dL (0.15-1.2); Total Protein 5.1 g/dL (6.6-8.7)
[2023-12-07 05:38] LABS: Anion Gap 12.2 (5-19); Magnesium 1.2 mg/dL (1.7-2.3); Potassium 4.2 mmol/L (3.5-5.1)
[2023-12-07 05:52] LABS: Folate Level 8.8 ng/mL (4.8-37.3)
[2023-12-07 06:33] LABS: Slide Review Slide Review Perform
[2023-12-07 06:34] LABS: Absolute Eosinophils 0.5 10^3/cmm (0.0-0.7); Absolute Segmented Neutrophil 5.6 10/cmm (1.6-7.1); Anisocytosis 1+; Eosinophils 6 %; Lymphocytes 20 %; Monocytes Absolute 0.5 10^3/cmm (0.1-0.6); Platelet Estimate Normal (Normal); Poikilocytosis Trace; Segmented Neutrophils 62 %; Total Cells Counted 100 (0-100)
[2023-12-07 06:43] LABS: Glucose Point of Care 178 mg/dL (70-110)
--- NOTE | 2023-12-07 07:09 | P.PN_ITS ---
Subjective 2 Subjective: Patient seen bedside this a.m., wishes to review CT scan left ankle. Vitals/I&O/Wt Last Vital Signs Temp 98.6 F 12/07/23 04:32 Pulse 80 12/07/23 04:32 Resp 16 12/07/23 04:32 BP 107/71 12/07/23 04:32 Pulse Ox 94 12/07/23 04:32 O2 Del Method Nasal Cannula 12/06/23 18:05 O2 Flow Rate 1 12/06/23 20:00 12/06/23 12/07/23 12/07/23 22:59 06:59 14:59 Intake Total 663.333 / 2010.000 1540 / 3550.000 Output Total 1000 / 1000 850 / 1850 Balance -336.667 / 1010.000 690 / 1700.000 Weight last 48 hrs Weight 211 lb 6 oz Weight 211 lb 6 oz Physical Exam 2 Const: COMMON NORMALS: no acute distress, patient oriented x3 and alert HENMT: COMMON NORMALS: normocephalic HEAD & SCALP: normocephalic Eye: COMMON NORMALS: Equal, round and reactive pupils present, EOMs intact bilaterally and conjunctivae normal CONJUNCTIVA: Yes conjunctivae normal P UPIL: Yes Equal, round and reactive pupils present Chest: CHEST: Yes Symmetrical chest wall rise Resp: COMMON NORMALS: normal respiratory effort, No use of accessory muscles and clear to auscultation bilaterally EFFORT & INSPECTION: Yes able to speak in complete sentences and Yes symmetric chest movement AUSCULTATION: clear to auscultation bilaterally Cardio: COMMON NORMALS: regular rate, regular rhythm, No murmurs present (Cardio) and Peripheral pulses 2+ throughout RATE: regular rate RHYTHM: r egular rhythm PERIPHERAL PULSES: Peripheral pulses 2+ throughout Extremity: COMMON NORMALS: capillary refill normal, no calf tenderness and no pedal edema (Focal edema right ankle medial and lateral malleolus) GENERAL: Y es edema LEFT LOWER EXTREMITY: Yes ankle joint (Pain at medial and lateral malleolus.) Left ankle: Yes inspection (No abrasion or laceration), Yes palpation (Pain to palpation medial and lateral malleolus.), Yes ROM (Guarded secondary to pain), Yes neurovascular exam (Dorsalis pedis and posterior tibial arteries palpable) and Yes other Neuro: COMMON NORMALS: patient oriented x3 SENSORIUM/ORIENTATION: Yes alert Psych: COMMON NORMALS: mental status grossly normal and cooperative Skin: COMMON NORMALS: no wounds GENERAL SKIN EXAM: no erythema TRAUMA: n o lacerations HAIR: general thinning Urinary Catheter Management: Mendez: Cath Placed During This Visit: yes Reason for Continuing Indwelling Catheter: Other Urinary Catheter Date of Insertion: 12/04/23 Data 12/07/23 04:01 12/07/23 04:01 Micro: Microbiology 12/05/23 Unknown Urine Culture - Final Urine,Clean Catch A&P Assessment and plan (1) Left ankle pain: Qualifiers: Chronicity: acute Qualified Code(s): M25.572 - Pain in left ankle and joints of left foot (2) Bimalleolar fracture of left ankle: Qualifiers: Encounter type: initial encounter Fracture type: closed Qualified Code(s): S82.842A - Displaced bimalleolar fracture of left lower leg, initial encounter for closed fracture Plan 73-year-old female who sustained a fall within the past week and acute onset of left ankle pain. X-ray 12/04/2023 Per my interpretation patient has a transverse fracture of the medial malleolus as well as a avulsion fracture of the distal medial malleolus left ankle. There is a Roberto Mendez B fracture of the left distal fibula. CT scan left ankle December 06, 2023 shows transverse fracture of the medial malleolus and Casey Mendez B fracture of the distal fibula, congruent ankle mortise appreciated. She has a nondisplaced bimalleolar fracture of the left ankle. -Nonweightbearing to the left lower extremity at this time -Will apply short leg cast to the left lower extremity -Discussed conservative and surgical management of her fracture. Should her fracture remained stable and nondisplaced with congruent ankle mortise she can potentially proceed with conservative management as she is a high risk operative candidate. Will perform serial x-rays every 2 weeks to monitor healing and alignment of her fractures. May require surgery down the road should her fractures become displaced otherwise can effectively manage conservatively. Attestations 2 Medical Necessity Statement*: Left bimalleolar fracture Coding Level of Care Code Acute Code for Chg Fwd Diagnoses Acute left ankle pain M25.572 Chronicity: acute Closed bimalleolar fracture of left ankle, initial encounter S82.842A Encounter type: initial encounter Fracture type: closed
[2023-12-07] MEDS: insulin lispro 100 unit/1 mL SUBCUT ×4 (07:26→21:47)
[2023-12-07] MEDS: metoprolol tartrate 25 mg Tablet PO ×2 (08:12→20:04)
[2023-12-07] MEDS: levothyroxine 50 mcg Tablet PO (08:12)
--- NOTE | 2023-12-07 09:30 | PC.CHAP ---
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 [] Patient/Family/Request visit [] Outpatient visit [] Follow-up visit [] Physician referral [] Code/Alert [x] Routine visit [] Staff referral [] Actively dying [] Patient sleeping [] Family support [] [] Out of room [] Palliative care [] [] Receiving care in room [] Pre-surgical visit [] Trauma [] Long length of stay [] ICU visit [] Other: Relational/Emotional Strength [x] Patient feels connected with others/family/visitors/staff [] Distress [] Loneliness/isolation [] Abandonment Spirituality of Patient [x] Person of Chanelle [] Attends Buddhist of their Chanelle [x] Believes in Prayer [] Reads Bible or Christianity materials [] There are Spiritual issues to be addressed Belt Builder Interventions [x] Prayer [x] Active listening [] Non-anxious presence [x] Spiritual/emotional support [] Crisis/trauma care [] Spiritual counseling [] Bereavement support [] Provided bereavement packet [] Provided Bible/devotional materials [] Provided toy/stuffed animal, coloring book to patient or family member [] Provided Communion [] Anointing/[place] [] Salvation [x] Completed spiritual assessment [] Other: Impact on Illness or Injury [] Angry [] Fearful [] Anxious [] Often cries [] Exhaustion [] Unable to work [] Unable to attend baptism [] Unable to walk/stand [] Unable to read [] Unable to drive [] Unable to eat/drink [] Unable to sleep [] Unable to be with family [] Patient intubated [] Other: Summary Time spent with patient 5 min
[2023-12-07] MEDS: cyanocobalamin 1,000 mcg/mL SDV 1000 MCG IM (10:17)
[2023-12-07] MEDS: magnesium sulfate premix 1 GM/100 ML PIGGYBACK IV (10:17)
[2023-12-07 12:22] LABS: Glucose Point of Care 251 mg/dL (70-110)
--- NOTE | 2023-12-07 14:20 | P.PN_ITS ---
Subjective 2 Subjective: No acute events overnight. Seen while getting cast placed on the foot today. Denies any nausea or vomiting, headache. Pain is controlled. Has remained hemodynamically stable and afebrile. Vitals/I&O/Wt Last Vital Signs Temp 97.6 F 12/07/23 12:00 Pulse 115 H 12/07/23 12:00 Resp 18 12/07/23 14:13 BP 130/77 12/07/23 07:42 Pulse Ox 98 12/07/23 12:00 O2 Del Method Room Air 12/07/23 12:00 O2 Flow Rate 1 12/07/23 08:30 12/06/23 12/07/23 12/07/23 22:59 06:59 14:59 Intake Total 663.333 / 2010.000 1540 / 3550.000 1160 / 1160 Output Total 1000 / 1000 850 / 1850 300 / 300 Balance -336.667 / 1010.000 690 / 1700.000 860 / 860 Weight last 48 hrs Weight 95.878 kg Weight 95.878 kg Physical Exam 2 Const: COMMON NORMALS: no acute distress, patient oriented x3 and alert G ENERAL APPEARANCE: cooperative ORIENTATION/CONSCIOUSNESS: Yes awake HENMT: COMMON NORMALS: normocephalic and oropharynx normal HEAD & SCALP: n ormocephalic Eye: COMMON NORMALS: Equal, round and reactive pupils present PUPIL: Yes Equal, round and reactive pupils present Neck/C-Spine: COMMON NORMALS: no JVD Resp: COMMON NORMALS: normal respiratory effort, No retractions, No use of accessory muscles and clear to auscultation bilaterally AUSCULTATION: clear to auscultation bilaterally Cardio: COMMON NORMALS: no JVD, regular rate, regular rhythm, S1 normal heart sound present, S2 normal heart sound present and No murmurs present (Cardio) RATE: regular rate RHYTHM: regular rhythm HEART SOUNDS: S1 normal heart sound present and S2 normal heart sound present GI: COMMON NORMALS: Normal to inspection, nondistended, normoactive bowel sounds present, Soft to palpation and non-tender PALPATION: Yes Soft to palpation Extremity: COMMON NORMALS: no joint enlargement, no calf tenderness and no pedal edema OTHER: LLE boot Neuro: COMMON NORMALS: patient oriented x3, CN's II-XII intact bilaterally and moves all extremities SENSORIUM/ORIENTATION: Yes alert Psych: COMMON NORMALS: mental status grossly normal Skin: COMMON NORMALS: no rashes or lesions noted GENERAL SKIN EXAM: no rashes or lesions noted OTHER: Left foot in cast On examination, right hip, no significant swelling, erythema, tenderness, site of biopsy site looks clean and dry Urinary Catheter Management: Mendez: Cath Placed During This Visit: yes, but has since been removed by the nurse Reason for Continuing Indwelling Catheter: Acute Urinary Retention or Obstruction Urinary Catheter Date of Insertion: 12/04/23 Date Urinary Catheter Removed: 12/07/23 Time Urinary Catheter Discontinued: 12:36 Data 12/07/23 04:01 12/07/23 04:01 Micro: Microbiology 12/05/23 Unknown Urine Culture - Final Urine,Clean Catch A&P Assessment and plan (1) Sepsis: Present on admission. Ruled in with tachycardia, leukocytosis with endorgan damage from acute kidney injury. Keep mean artery pressure 65. Recent history of pyelonephritis with concerns for left hip infected collection. Recently admitted at [facility]. Will request documents. Follow-up blood cultures. Will request culture history from [facility]. Continue with empiric antibiotics with IV vancomycin and meropenem for now. Continue antibiotics for next 24 hours. If remains hemodynamically stable and afebrile will discontinue antibiotics as patient has remained afebrile with resolution of leukocytosis within next 24 hours. Low concern for infection for now. (2) Acute kidney injury: Creatinine trending down to 1.2. Baseline creatinine around 1.1. Increase fluid to 100 cc/h for now. Strict input output charting, daily weights. Monitor BMP daily for now. Medical reconciliation done for nephrotoxic drugs. (3) Closed left fibular fracture: Placed in boot in the ER. Will consult podiatry for further recommendations. Weightbearing and physical therapy as per podiatry team. Patient does have mild edema around the left ankle. For now low concerns for osteomyelitis. Will hold off on MRI for now. Qualifiers: Encounter type: initial encounter Fibula location: distal Fracture morphology: other fracture Qualified Code(s): S82.832A - Other fracture of upper and lower end of left fibula, initial encounter for closed fracture (4) UTI (urinary tract infection): (5) Diabetes: Chronically on steroids. Insulin sliding scale before meals and at bedtime. A1c of 9.3. Takes glipizide 5 mg daily at home. Will discuss further with patient regarding possibility of switching over to insulin. (6) Hypothyroidism: With history of Marbury syndrome. TSH 0.08. Takes levothyroxine 12.5 mg daily at home. T3 and free T4. Will increase dose of levothyroxine accordingly. (7) Cushings syndrome: (8) HTN (hypertension): Goal pressure less than 140/90 mmHg with mean over 65. Patient slightly tachycardic. Restart metoprolol at 25 mg twice daily. Will monitor blood pressures. Qualifiers: Hypertension type: essential hypertension Qualified Code(s): I10 - Essential (primary) hypertension (9) Atrial fibrillation: Metoprolol as above. (10) Left ankle pain: Qualifiers: Chronicity: acute Qualified Code(s): M25.572 - Pain in left ankle and joints of left foot Plan Full code Cardiac carb consistent diet. Protonix for PUD prophylaxis Eliquis for DVT prophylaxis. Plan for the day: Appreciate thyroid panel. Increase levothyroxine to 50 mcg/day. Will need repeat thyroid panel in 1 month. Patient would benefit from an endocrinology referral as an outpatient. Start on vitamin B12 1000 mcg shots daily. Start on oral iron supplementation. Appreciate podiatry recommendations. No concerns for osteomyelitis. Placed in cast for bimalleolar fracture. Will need repeat x-rays as an outpatient every few weeks for trial of conservative treatment to avoid surgical correction. SAGE resolved. Stop IV fluids. Low concerns for infection. Stop IV antibiotics and monitor. Continue other chronic medications. Blood pressure stable. Continue with metoprolol 25 mg twice daily. Will uptitrate as for goal blood pressures and heart rate. PT/OT evaluation. Remove Mendez catheter. Discharge plan: Patient lives by herself. Does have daughter who lives nearby but not in the same house. Patient will be not weightbearing with cast on the left foot and is at a high risk of repeat fall. Discussed in detail with the patient at bedside and daughter over the phone. They will think over further discharge planning. Options discussed for home with home health versus home versus SNF. We did discuss With the safest plan going forward to avoid falls to home health is also appropriate if possible to achieve. For now patient is okay to go to SNF. Case management on board. Attestations 2 Medical Necessity Statement*: Requires further hospitalization for management of bimalleolar fracture, SAGE in patient with advanced age while safe discharge planning is sought. Diagnoses Sepsis A41.9 Acute kidney injury N17.9 Other closed fracture of distal end of left fibula, initial encounter S82.832A Encounter type: initial encounter Fibula location: distal Fracture morphology: other fracture UTI (urinary tract infection) N39.0 Diabetes E11.9 Hypothyroidism E03.9 Cushings syndrome E24.9 Essential hypertension I10 Hypertension type: essential hypertension Atrial fibrillation I48.91 Acute left ankle pain M25.572 Chronicity: acute
[2023-12-07 16:42] LABS: Glucose Point of Care 194 mg/dL (70-110)
[2023-12-07] MEDS: atorvastatin 40 mg Tablet PO (17:32)
[2023-12-07] MEDS: predniSONE 5 mg Tablet 2.5 MG PO (17:32)
[2023-12-07] MEDS: iron polysaccharide complex 150 mg Capsule PO (17:33)
[2023-12-07 21:07] LABS: Glucose Point of Care 171 mg/dL (70-110)
[2023-12-08] MEDS: pantoprazole 40 mg SDV IVP (00:33)
[2023-12-08 00:43] VITALS: BP 111/71; PULSE 80; RESP 18; TEMP 37; O2SAT 96
[2023-12-08 01:24] LABS: Basophils # 0.1 10^3/uL (0.0-0.1); Basophils % 0.5 %; Eosinophils # 0.3 10^3/uL (0.0-0.8); Eosinophils % 2.6 %; Hematocrit 24.8 % (36-47); Lymphocytes # 1.6 10^3/uL (0.8-4.8); Lymphocytes % 15.5 %; Mean Corpuscular HGB Conc 30.6 g/dL (30-55); Mean Corpuscular Hemoglobin 30.5 pg (27-33); Mean Corpuscular Volume 99.6 fl (85-98); Mean Platelet Volume 9.8 fL (7.4-10.4); Monocytes % 9.3 %; Neutrophils # 6.84 10^3/uL (1.8-7.7); Neutrophils % 66.6 %; Nucleated Red Blood Cells # 0.1 /100WBC; Nucleated Red Blood Cells % 0.5 %; Platelet Count 361 10^3/cmm (157-399); Red Blood Count 2.49 10^6/uL (3.85-5.65); Red Cell Distribution Width 17.1 % (12.1-15.1); White Blood Count 10.27 10^3/uL (3.29-11.43)
[2023-12-08 01:32] LABS: Slide Review Slide Review Perform
[2023-12-08 01:41] LABS: Magnesium 1.2 mg/dL (1.7-2.3)
[2023-12-08 01:42] LABS: Alanine Aminotransferase 16 U/L (0-33); Alkaline Phosphatase 90 U/L (35-105); Anion Gap 16.7 (5-19); Aspartate Amino Transferase 18 U/L (0-32); Blood Urea Nitrogen 32 mg/dL (8-23); Calcium 7.5 mg/dL (8.5-10.5); Carbon Dioxide 20 mmol/L (22-29); Chloride 108 mmol/L (98-107); Globulin 2.1 g/dL (1.3-4.6); Glucose 165 mg/dL (65-115); Osmolality Calculated 301 mOsm/kg (285-295); Potassium 4.7 mmol/L (3.5-5.1); Sodium 140 mmol/L (136-145); Total Bilirubin 0.4 mg/dL (0.15-1.2); Total Protein 5.1 g/dL (6.6-8.7); Vancomycin Trough 16.4 ug/mL (10-15)
[2023-12-08 05:10] VITALS: BP 130/60; PULSE 80; RESP 17; TEMP 37; O2SAT 96
[2023-12-08] MEDS: predniSONE 5 mg Tablet PO (05:16)
[2023-12-08] MEDS: apixaban 5 mg Tablet PO (05:16)
[2023-12-08 05:32] VITALS: PULSE 109
[2023-12-08 06:38] LABS: Glucose Point of Care 178 mg/dL (70-110)
[2023-12-08] MEDS: insulin lispro 100 unit/1 mL SUBCUT ×2 (07:58→11:28)
[2023-12-08] MEDS: iron polysaccharide complex 150 mg Capsule PO (07:59)
[2023-12-08] MEDS: metoprolol tartrate 25 mg Tablet PO (07:59)
[2023-12-08] MEDS: cyanocobalamin 1,000 mcg/mL SDV 1000 MCG IM (07:59)
[2023-12-08] MEDS: levothyroxine 50 mcg Tablet PO (07:59)
[2023-12-08 08:00] VITALS: BP 126/70; PULSE 105; PULSE 109; RESP 15; TEMP 36.6; O2SAT 90; O2SAT 92
[2023-12-08 11:28] LABS: Glucose Point of Care 194 mg/dL (70-110)
[2023-12-08 11:31] LABS: Glucose Point of Care 204 mg/dL (70-110)
[2023-12-08 11:37] VITALS: BP 131/80; PULSE 91; RESP 16; TEMP 36.7; O2SAT 95
--- NOTE | 2023-12-08 12:06 | PC.SOCIAL ---
IMM Update pg 2 of IMM updated and reviewed w/ patient. Copy provided and copy dated, initialed and placed in chart.
--- NOTE | 2023-12-08 12:23 | P.PN_ITS ---
Subjective 2 Subjective: Patient seen bedside this a.m., denies any complaints with her cast at the left lower extremity. Vitals/I&O/Wt Last Vital Signs Temp 98.0 F 12/08/23 11:37 Pulse 91 12/08/23 11:37 Resp 16 12/08/23 11:37 BP 131/80 12/08/23 11:37 Pulse Ox 95 12/08/23 11:37 O2 Del Method Nasal Cannula 12/08/23 11:37 O2 Flow Rate 2 12/08/23 08:00 12/07/23 12/08/23 12/08/23 22:59 06:59 14:59 Intake Total 360 / 1520 60 / 1580 300 / 300 Output Total 450 / 450 Balance 360 / 1220 60 / 1280 -150 / -150 Weight last 48 hrs Weight 229 lb 7 oz Weight 211 lb 6 oz Physical Exam 2 Const: COMMON NORMALS: no acute distress, patient oriented x3 and alert HENMT: COMMON NORMALS: normocephalic HEAD & SCALP: normocephalic Eye: COMMON NORMALS: Equal, round and reactive pupils present, EOMs intact bilaterally and conjunctivae normal CONJUNCTIVA: Yes conjunctivae normal P UPIL: Yes Equal, round and reactive pupils present Chest: CHEST: Yes Symmetrical chest wall rise Resp: COMMON NORMALS: normal respiratory effort, No use of accessory muscles and clear to auscultation bilaterally EFFORT & INSPECTION: Yes able to speak in complete sentences and Yes symmetric chest movement AUSCULTATION: clear to auscultation bilaterally Cardio: COMMON NORMALS: regular rate, regular rhythm, No murmurs present (Cardio) and Peripheral pulses 2+ throughout RATE: regular rate RHYTHM: r egular rhythm PERIPHERAL PULSES: Peripheral pulses 2+ throughout Extremity: COMMON NORMALS: capillary refill normal, no calf tenderness and no pedal edema (Focal edema right ankle medial and lateral malleolus) GENERAL: Y es edema LEFT LOWER EXTREMITY: Yes ankle joint (Pain at medial and lateral malleolus.) Left ankle: Yes inspection (No abrasion or laceration), Yes palpation (Pain to palpation medial and lateral malleolus.), Yes ROM (Guarded secondary to pain), Yes neurovascular exam (Dorsalis pedis and posterior tibial arteries palpable) and Yes other Neuro: COMMON NORMALS: patient oriented x3 SENSORIUM/ORIENTATION: Yes alert Psych: COMMON NORMALS: mental status grossly normal and cooperative Skin: COMMON NORMALS: no wounds GENERAL SKIN EXAM: no erythema TRAUMA: n o lacerations HAIR: general thinning Urinary Catheter Management: Mendez: Cath Placed During This Visit: yes, but has since been removed by the nurse Reason for Continuing Indwelling Catheter: Acute Urinary Retention or Obstruction Urinary Catheter Date of Insertion: 12/04/23 Date Urinary Catheter Removed: 12/07/23 Time Urinary Catheter Discontinued: 12:36 Data 12/08/23 01:15 12/08/23 01:15 A&P Assessment and plan (1) Left ankle pain: Qualifiers: Chronicity: acute Qualified Code(s): M25.572 - Pain in left ankle and joints of left foot (2) Bimalleolar fracture of left ankle: Qualifiers: Encounter type: initial encounter Fracture type: closed Qualified Code(s): S82.842A - Displaced bimalleolar fracture of left lower leg, initial encounter for closed fracture Plan 73-year-old female who sustained a fall within the past week and acute onset of left ankle pain. X-ray 12/04/2023 Per my interpretation patient has a transverse fracture of the medial malleolus as well as a avulsion fracture of the distal medial malleolus left ankle. There is a Roberto Mendez B fracture of the left distal fibula. CT scan left ankle December 06, 2023 shows transverse fracture of the medial malleolus and Casey Mendez B fracture of the distal fibula, congruent ankle mortise appreciated. She has a nondisplaced bimalleolar fracture of the left ankle. -Nonweightbearing to the left lower extremity at this time -Left short leg cast is well-fitting, no friction or irritation or skin breakdown. -Discussed conservative and surgical management of her fracture. Should her fracture remained stable and nondisplaced with congruent ankle mortise she can potentially proceed with conservative management as she is a high risk operative candidate. Will perform serial x-rays every 2 weeks to monitor healing and alignment of her fractures. May require surgery down the road should her fractures become displaced otherwise can effectively manage conservatively. Attestations 2 Medical Necessity Statement*: Left bimalleolar fracture Coding Level of Care Code Acute Code for Chg Fwd Diagnoses Acute left ankle pain M25.572 Chronicity: acute Closed bimalleolar fracture of left ankle, initial encounter S82.842A Encounter type: initial encounter Fracture type: closed
--- NOTE | 2023-12-08 12:50 | P.DS_ITS ---
Discharge Providers Date of Admission: 12/05/23 00:49 Date of Discharge: December 08, 2023 Attending Provider at Admission: David Bolton MD Attending Provider at Discharge: Tobias Valentino MD Consults: Podiatry: Dr. Simon Primary Care Provider: Mireille Lozoya MD Diagnoses at Discharge Discharge Diagnosis (1) Left ankle pain: Status: Acute Qualifiers: Chronicity: acute Qualified Code(s): M25.572 - Pain in left ankle and joints of left foot (2) Bimalleolar fracture of left ankle: Status: Acute Qualifiers: Encounter type: initial encounter Fracture type: closed Qualified Code(s): S82.842A - Displaced bimalleolar fracture of left lower leg, initial encounter for closed fracture Reason for Visit Reason for Visit: FALL Brief History: History as per HPI: Bailey Gayle is a 73 year old female past medical history of 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, history of atrial fibrillation on Eliquis, no [id number] type 2 diabetes mellitus, hypertension, obesity, recent hospitalization at [facility] for obstructive uropathy with urosepsis, ureteral stent in place, recently discharged from [facility], she got home on , she tells me that she has been weak and fatigued and tired since since, decreased ambulation, no fevers, no chills, is having right hip pain, when she was up at [facility], she had chronic appearing fracture with an inclusion, they tapped the right hip, to make sure that there was infection she was told there was no infection but she is waiting on the pathology results, nonetheless, the last time patient's family heard from her was for over 48 hours according to patient she fell and she could not get up off the floor, she was able to crawl, she was able to take her medications, in addition she family had difficulty reaching her as there was issues with her cell phone service, currently her only complaint is left ankle pain she when she fell she twisted her left ankle, she also has complaints of right hip pain which is chronic,no fevers, no chills no headache, blurry vision but she does not feel well she tells me. Hospital Course Hospital Course Patient was admitted to the hospital further evaluation and management of fall leading to left ankle pain in setting of hypotension. Admission there was concern for sepsis secondary to UTI which was ruled out with negative for urinalysis. There was also concern for possible osteomyelitis of the left ankle which was ruled out clinically. Patient during hospitalization remained hemodynamically stable, afebrile. Her blood cultures during hospitalization remain negative. Given concerns for fracture of the ankle on admission podiatry was consulted who recommended CT foot which was consistent with bimalleolar fracture. Treatment of the fracture with conservative versus surgical options were discussed in detail with patient who opted for conservative treatment. Patient was placed in cast with advised to follow-up with podiatry team as an outpatient we will follow-up serial x-rays to make sure the foot remained stable. Patient is to remain nonweightbearing. During hospitalization she was also found to have slightly worsened hypothyroidism for which her levothyroxine was adjusted. On admission she did have SAGE which resolved with IV hydration. She was found to have borderline hypotension during hospitalization for which her home antihypertensives were adjusted. Given advanced age, patient living by herself, nonweightbearing status of the left foot for the safe discharge plan were discussed in detail with the patient and family who opted for patient to be transferred to SNF. She has been dis charged in hemodynamically stable condition with advised to follow-up with podiatry on set appointment, her home dose of ARB has been discontinued. Levothyroxine dose has been increased. Dose of glipizide has been increased to 10 mg daily. Physical Exam Const: COMMON NORMALS: no acute distress, patient oriented x3 and alert GENERAL APPEARANCE: cooperative ORIENTATION/CONSCIOUSNESS: Yes awake HENMT: COMMON NORMALS: normocephalic and oropharynx normal HEAD & SCALP: normocephalic Eye: COMMON NORMALS: Equal, round and reactive pupils present PUPIL: Yes Equal, round and reactive pupils present Neck/C-Spine: COMMON NORMALS: no JVD Resp: COMMON NORMALS: normal respiratory effort, No retractions, No use of accessory muscles and clear to auscultation bilaterally AUSCULTATION: clear to auscultation bilaterally Cardio: COMMON NORMALS: no JVD, regular rate, regular rhythm, S1 normal heart sound present, S2 normal heart sound present and No murmurs present (Cardio) RATE: regular rate RHYTHM: regular rhythm HEART SOUNDS: S1 normal heart sound present and S2 normal heart sound present GI: COMMON NORMALS: Normal to inspection, nondistended, normoactive bowel sounds present, Soft to palpation and non-tender PALPATION: Yes Soft to palpation Extremity: COMMON NORMALS: no joint enlargement, no calf tenderness and no pedal edema OTHER: LLE boot Neuro: COMMON NORMALS: patient oriented x3, CN's II-XII intact bilaterally and moves all extremities SENSORIUM/ORIENTATION: Yes alert Psych: COMMON NORMALS: mental status grossly normal Skin: COMMON NORMALS: no rashes or lesions noted GENERAL SKIN EXAM: no rashes or lesions noted OTHER: Left foot in cast On examination, right hip, no significant swelling, erythema, tenderness, site of biopsy site looks clean and dry Urinary Catheter Management: Mendez: Cath Placed During This Visit: yes, but has since been removed by the nurse Reason for Continuing Indwelling Catheter: Acute Urinary Retention or Obstruction Urinary Catheter Date of Insertion: 12/04/23 Date Urinary Catheter Removed: 12/07/23 Time Urinary Catheter Discontinued: 12:36 Discharge Data Studies Completed and Pending Completed Studies During Hospitalization Category Date Time Status CT abdomen renal stone [CT kidney stone [id number]] Stat Cat Scan 12/04/23 23:[address] ankle LT wo con* [id number] Routine Cat Scan 12/06/23 17:[address] head wo con* [id number] Stat Cat Scan 12/04/23 20:59 Completed XR ankle LT min 3V* [id number] Stat Exams 12/04/23 20:59 Completed XR chest 1V portable [id number] Stat Exams 12/04/23 22:52 Completed XR foot LT min 3V* [id number] Stat Exams 12/04/23 20:59 Completed XR hip RT 2-3V wo/w pel* [id number] Stat Exams 12/04/23 20:59 Completed XR tibia fibula LT 2V [id number] Stat Exams 12/04/23 20:59 Completed CV. echo complete* [id number] Routine Ultrasound 12/06/23 06:00 Completed US renal BI* [id number] Routine Ultrasound 12/05/23 09:53 Completed Pending at discharge Category Date Time Status Blood Culture Stat Lab 12/04/23 23:20 Results MAG [Magnesium] AM LABS Lab 12/09/23 04:00 Ordered Radiology Impressions Ankle X-Ray 12/04/23 20:59 IMPRESSION: 1. Small chip fractures at medial malleolus of uncertain age. 2. Distal fibular old deformity. Just distal to this, there is a subtle nondisplaced fracture likely. Advise appropriate orthopedic follow-up. 3. Advanced swelling. 4. Lateral clear space widening which implies ankle ligamentous instability. 5. Prior ankle trauma. Foot X-Ray 12/04/23 20:59 IMPRESSION: 1. Severe distal dorsal foot soft tissue swelling. 2. Likely old deformity in distal 4th metatarsal. Advise correlation. Head CT 12/04/23 20:59 IMPRESSION: 1. No acute intracranial hemorrhage or definite acute finding. 2. Mild age-related changes. Other chronic findings again noted, similar to 04/19/2018. Hip/Pelvis X-Ray 12/04/23 20:59 IMPRESSION: 1. No acute findings. 2. Severe right hip DJD. Tibia/Fibula X-Ray 12/04/23 20:59 IMPRESSION: 1. No acute findings. 2. See ankle x-ray for those findings. Chest X-Ray 12/04/23 22:52 IMPRESSION: Large heart with mild diffuse interstitial prominence may be due to edema or scarring. Abdomen/Pelvis CT 12/04/23 23:19 IMPRESSION: 1. No hydronephrosis or definite abscess identified. 2. Right ureteral stent is in place. 3. Left renal lesions can be followed with ultrasound. Numerous chronic findings above including cholelithiasis, kidney stones, etc. 4. Severe sigmoid diverticulosis. No small bowel obstruction, abscess or free air. COMMENTS: Consistent with the [employer]'s Incidental Findings Committee white paper (J Am Nafisa Radiol 2018): Any incidental renal lesion less than 1 cm or classified as too small to characterize, or any incidental cystic renal lesion characterized as simple-appearing, is likely benign. No follow-up imaging is recommended for these lesions per consensus recommendations based on imaging criteria. Renal Ultrasound 12/05/23 09:53 IMPRESSION: Bilateral renal cortical cysts. Bladder decompressed by Mendez catheter. Ankle CT 12/06/23 17:05 IMPRESSION: 1. Bimalleolar fracture consistent with Mendez type B injury. 2. No soft tissue emphysema to suggest open fracture. No tendon entrapment. Microbiology 12/05/23 Unknown Urine,Clean Catch Urine Culture - Final 12/04/23 23:20 Blood Blood Culture - Preliminary NEGATIVE TO DATE 12/04/23 23:03 Blood Blood Culture - Preliminary NEGATIVE TO DATE Laboratory Results WBC 10.27 10^3/uL (3.29-11.43) 12/08/23 01:15 Corrected WBC Cancelled 12/04/23 21:43 RBC 2.49 10^6/uL (3.85-5.65) L 12/08/23 01:15 Hgb 7.60 g/dL (11.27-16.99) L 12/08/23 01:15 Hct 24.8 % (36-47) L 12/08/23 01:15 MCV 99.6 fl (85-98) H 12/08/23 01:15 MCH 30.5 pg (27-33) 12/08/23 01:15 MCHC 30.6 g/dL (30-55) 12/08/23 01:15 RDW 17.1 % (12.1-15.1) H 12/08/23 01:15 Plt Count 361 10^3/cmm (157-399) 12/08/23 01:15 MPV 9.8 fL (7.4-10.4) 12/08/23 01:15 Gran % Cancelled 12/04/23 21:43 Neut % (Auto) 66.6 % 12/08/23 01:15 Lymph % (Auto) 15.5 % 12/08/23 01:15 Logan % (Auto) 9.3 % 12/08/23 01:15 Eos % (Auto) 2.6 % 12/08/23 01:15 Baso % (Auto) 0.5 % 12/08/23 01:15 Neut # (Auto) 6.84 10^3/uL (1.8-7.7) 12/08/23 01:15 Lymph # (Auto) 1.6 10^3/uL (0.8-4.8) 12/08/23 01:15 Logan # (Auto) 1.0 10^3/uL (0.2-0.9) H 12/08/23 01:15 Eos # (Auto) 0.3 10^3/uL (0.0-0.8) 12/08/23 01:15 Baso # (Auto) 0.1 10^3/uL (0.0-0.1) 12/08/23 01:15 Absolute Gran (auto) Cancelled 12/04/23 21:43 Nucleated RBC % (auto) 0.5 % 12/08/23 01:15 Total Counted 100 (0-100) 12/07/23 04:01 Atypical Lymphs % Not Reportable 12/07/23 04:01 Segmented Neutrophils 62 % 12/07/23 04:01 Abs Segm Neuts (Man) 5.6 10/cmm (1.6-7.1) 12/07/23 04:01 Band Neutrophils Not Reportable 12/07/23 04:01 Lymphocytes (Manual) 20 % 12/07/23 04:01 Monocytes (Manual) 6.0 % 12/07/23 04:01 Absolute Monocytes 0.5 10^3/cmm (0.1-0.6) 12/07/23 04:01 Eosinophils (Manual) 6 % 12/07/23 04:01 Absolute Eosinophils 0.5 10^3/cmm (0.0-0.7) 12/07/23 04:01 Basophils (Manual) 0.0 % 12/07/23 04:01 Absolute Basophils 0.0 10^3/cmm (0.0-0.2) 12/07/23 04:01 Myelocytes 2.0 % 12/07/23 04:01 Promyelocytes 3.0 % 12/07/23 04:01 Nucleated RBCs 1.0 /100WBC (0-1) 12/07/23 04:01 Nucleated RBCs # 0.1 /100WBC 12/08/23 01:15 Platelet Estimate Normal (Normal) 12/07/23 04:01 Poikilocytosis Trace 12/07/23 04:01 Anisocytosis 1+ H 12/07/23 04:01 Sodium 140 mmol/L (136-145) 12/08/23 01:15 Potassium 4.7 mmol/L (3.5-5.1) 12/08/23 01:15 Chloride 108 mmol/L (98-107) H 12/08/23 01:15 Carbon Dioxide 20 mmol/L (22-29) L 12/08/23 01:15 Anion Gap 16.7 (5-19) 12/08/23 01:15 BUN 32 mg/dL (8-23) H 12/08/23 01:15 Creatinine 1.1 mg/dL (0.5-0.9) H 12/08/23 01:15 GFR Calculation Not Reportable 12/08/23 01:15 Glucose 165 mg/dL (65-115) H 12/08/23 01:15 POC Glucose 194 mg/dL (70-110) H 12/08/23 11:25 Estimat Average Glucose 220 12/05/23 00:00 Hemoglobin A1c 9.3 % (4.0-6.0) H 12/05/23 00:00 Calculated Osmolality 301 mOsm/kg (285-295) H 12/08/23 01:15 Lactic Acid 3.7 mmol/L (0.5-2.2) H 12/04/23 21:43 Lactic Acid (Sepsis) 2.9 mmol/L (0.5-2.2) H 12/04/23 23:20 Calcium 7.5 mg/dL (8.5-10.5) L 12/08/23 01:15 Magnesium 1.2 mg/dL (1.7-2.3) L 12/08/23 01:15 Iron 28 ug/dL (37-145) L 12/06/23 04:05 TIBC 269 mcg/dl 12/06/23 04:05 % Saturation 10.4 % (20-50) L 12/06/23 04:05 Unsat Iron Binding 241 ug/dL (112-347) 12/06/23 04:05 Total Bilirubin 0.4 mg/dL (0.15-1.2) 12/08/23 01:15 AST 18 U/L (0-32) 12/08/23 01:15 ALT 16 U/L (0-33) 12/08/23 01:15 Alkaline Phosphatase 90 U/L (35-105) 12/08/23 01:15 Creatine Kinase 49 U/L (26-192) 12/06/23 04:05 Troponin T Baseline 84 ng/L (0-10) H 12/04/23 22:19 Troponin T 120 Minute 75.57 ng/L (0-10) H 12/05/23 Unknown Delta Troponin T -8.43 ABS# (0-10) L 12/05/23 Unknown Troponin T Hi Sens 6Hr 58.04 ng/L (0-10) H 12/05/23 04:15 Troponin T Hi Sens 6Hr Delta -25.96 ng/L (0-12) L 12/05/23 04:15 C-Reactive Protein 99.4 mg/L (0.0-4.9) H 12/05/23 00:00 NT-Pro-B Natriuret Pep 486 pg/mL (0-125) H 12/04/23 22:19 Total Protein 5.1 g/dL (6.6-8.7) L 12/08/23 01:15 Albumin 3.0 g/dL (3.5-5.2) L 12/08/23 01:15 Globulin 2.1 g/dL (1.3-4.6) 12/08/23 01:15 Triglycerides 396 mg/dL (0-150) H 12/05/23 00:00 Cholesterol 164 mg/dL (0-200) 12/05/23 00:00 LDL Cholesterol, Calc 50 mg/dL (50-129) 12/05/23 00:00 HDL Cholesterol 35 mg/dL (60-100) L 12/05/23 00:00 LDL/HDL Ratio 1.43 RATIO (0.00-3.22) 12/05/23 00:00 Cholesterol/HDL Ratio 4.69 mg/dL (0.0-4.40) H 12/05/23 00:00 Vitamin B12 154 pg/mL (232-1245) L 12/06/23 04:05 Folate 8.8 ng/mL (4.8-37.3) 12/07/23 04:01 Procalcitonin 0.23 ng/mL (0-0.5) 12/06/23 04:05 TSH 0.08 uIU/mL (0.27-4.20) L 12/05/23 00:00 Free T4 0.33 ng/dL (0.82-1.77) L 12/06/23 04:05 Free T3 0.9 PG/ML (2.0-4.4) L 12/06/23 04:05 Urine Color Dark yellow (Yellow) 12/04/23 21:03 Urine Appearance Cloudy (CLEAR) A 12/04/23 21:03 Urine pH 5 (5-7) 12/04/23 21:03 Ur Specific [place] 1.020 (1.005-1.030) 12/04/23 21:03 Urine Protein 2+ (Negative) H 12/04/23 21:03 Urine Glucose (UA) Trace (Normal) H 12/04/23 21:03 Urine Ketones Negative (Negative) 12/04/23 21:03 Urine Blood 3+ (Negative) H 12/04/23 21:03 Urine Nitrate Negative (Negative) 12/04/23 21:03 Urine Bilirubin Neg (Negative) 12/04/23 21:03 Urine Urobilinogen Norm mg/dL (Negative) 12/04/23 21:03 Ur Leukocyte Esterase 1+ (Negative) H 12/04/23 21:03 Urine RBC 25-40 /hpf (0-2) H 12/04/23 21:03 Urine WBC 15-25 /hpf (0-5) H 12/04/23 21:03 Ur Squamous Epith Cells 0-4 /hpf (0-5) H 12/04/23 21:03 Amorphous Sediment Trace /hpf 12/04/23 21:03 Urine Bacteria 1+ /hpf (NONE) H 12/04/23 21:03 Urine Mucus Trace /hpf 12/04/23 21:03 Urine Yeast 3+ /hpf H 12/04/23 21:03 Vancomycin Trough 16.4 ug/mL (10-15) H 12/08/23 01:15 Adenovirus (PCR) Not detected (NOT DETECT) 12/05/23 04:22 C. pneumoniae DNA (PCR) Not detected (NOT DETECT) 12/05/23 04:22 Coronavirus 229E (PCR) Not detected (NOT DETECT) 12/05/23 04:22 Human Metapneumovir PCR Not detected (NOT DETECT) 12/05/23 04:22 Influenza A (H1) PCR Not detected (NOT DETECT) 12/05/23 04:22 Influ A (H1/09) PCR Not detected (NOT DETECT) 12/05/23 04:22 Influenza A (H3) PCR Not detected (NOT DETECT) 12/05/23 04:22 Influenza Type A (PCR) Not detected (NOT DETECT) 12/05/23 04:22 Influenza Type B (PCR) Not detected (NOT DETECT) 12/05/23 04:22 M. pneumoniae (PCR) Not detected (NOT DETECT) 12/05/23 04:22 Parainfluenza 1 (PCR) Not detected (NOT DETECT) 12/05/23 04:22 Parainfluenza 2 (PCR) Not detected (NOT DETECT) 12/05/23 04:22 Parainfluenza 3 (PCR) Not detected (NOT DETECT) 12/05/23 04:22 Parainfluenza 4 (PCR) Not detected (NOT DETECT) 12/05/23 04:22 RSV Type A (PCR) Not detected (NOT DETECT) 12/05/23 04:22 RSV Type B (PCR) Not detected (NOT DETECT) 12/05/23 04:22 Entero/Rhino (PCR) Not detected (NOT DETECT) 12/05/23 04:22 SARS-CoV-2 (PCR) Not detected (NOT DETECT) 12/05/23 04:22 Vitals Last Vital Signs Temp 98.0 F 12/08/23 11:37 Pulse 91 12/08/23 11:37 Resp 16 12/08/23 11:37 BP 131/80 12/08/23 11:37 Pulse Ox 95 12/08/23 11:37 O2 Del Method Nasal Cannula 12/08/23 11:37 O2 Flow Rate 2 12/08/23 08:00 Discharge Plan Discharge Patient Disposition: Xfer [facility] Condition: Stable Prescriptions: New tramadol 50 mg Tablet 50 mg PO Q6H PRN (Reason: Moderate Pain) Qty: 14 0RF levothyroxine 50 mcg Tablet 50 mcg PO DAILY 30 Days Qty: 30 0RF cyanocobalamin (vitamin B-12) 1,000 mcg capsule 1,000 mcg PO DAILY Qty: 60 0RF polysaccharide iron complex [Ferrex 150] 150 mg iron Capsule 150 mg PO BIDWM Qty: 60 0RF Continued metoprolol tartrate 50 mg tablet 50 mg PO BID Qty: 180 3RF acetaminophen [Tylenol] 325 mg tablet 325 mg PO QID PRN (Reason: Pain) atorvastatin 40 mg tablet 40 mg PO QPM prednisone 5 mg tablet See Rx Instructions .ROUTE .COMPLEX Rx Instructions: take 1 tab at 0600, and 1/2 tab at 1800 metformin 1,000 mg tablet 1,000 mg PO BID@0600,1800 Eliquis 5 mg tablet 5 mg PO BID@0600,1800 fenofibrate nanocrystallized 48 mg tablet 48 mg PO DAILY Vitamin D3 25 mcg (1,000 unit) Tablet 25 mcg PO DAILY potassium citrate 10 mEq (1,080 mg) tablet extended release 10 meq PO BID Changed glipizide 5 mg tablet extended release 24hr 10 mg PO QPM Qty: 60 0RF Rx Instructions: take daily with breakfast Discontinued levothyroxine 75 mcg capsule 12.5 mcg PO DAILY irbesartan 150 mg tablet 150 mg PO DAILY Discharge Orders: Discharge Order (Routine); Ordered 12/08/23 Ordered By: Tobias Valentino Referrals: [facility] [Outside] Bruce Simon DPM [Physician] - 12/16/23 2:00 pm Cecy Cleaning FNP [Referring] - 12/16/23 10:15 am Casimiro Melendez MD [Physician] - 12/13/23 10:30 am Patient Instructions: Opioid Safety Activity Restrictions/Additional Instructions: Follow-up for cast change and repeat x-ray with Dr. Simon in podiatry clinic December 16, 2023 at 2:00 PM Do not take irbesartan anymore. Dose of levothyroxine has been increased to 50 mcg daily. You should have a repeat thyroid panel in 1 month. Please check your blood pressures daily at home and maintain a blood pressure diary for further adjustment of antihypertensive. Please follow-up with endocrinology and set appointment. Discharge Attestations Time Spent in Discharge Care*: greater than 30 min Specific Discharge Activities: educating patient, discussing with pcp/other providers, discussing with case hardener/social workers/dc planners, documenting/other paperwork and evaluating patient/reviewing data Status at Discharge: Cognitive status at discharge: cognitively intact , Behavioral status at discharge: cooperative , Functional status at discharge: uses cane/walker , Overall status at discharge: patient is progressing back to baseline Quality Metrics Clinical Quality Measures [ No reported AMI, CVA or VTE this stay] Coding Level of Care Code 09307 Total time (in minutes) for Discharge: 60 Diagnoses Acute left ankle pain M25.572 Chronicity: acute Closed bimalleolar fracture of left ankle, initial encounter S82.842A Encounter type: initial encounter Fracture type: closed
--- NOTE | 2023-12-08 13:49 | PC.SOCIAL ---
IMM Update pg 2 of IMM updated and reviewed w/ patient. Copy provided and copy dated, initialed and placed in chart.
--- NOTE | 2023-12-08 14:56 | PC.NURSE ---
Report called to Lindsey at [facility]. Silas Cantu contacted for transport back to [facility]
[2023-12-08 14:59] VITALS: BP 131/80; PULSE 91; RESP 16; TEMP 36.7; O2SAT 95
--- NOTE | 2023-12-08 15:04 | PC.NURSE ---
Pt still unable to void. Bladder scan shows [address] Valentino advised. Will replace fine
--- NOTE | 2023-12-08 16:13 | PC.OT ---
OT EVALUATION HELD DUE TO SCHEDULED D/C
--- NOTE | 2023-12-08 16:48 | PC.NURSE ---
Silas Cantu here to pick pt up for transport back to [facility] . Daughter at bedside and takes all belongings.
== END 2023-12-08 16:49 | disposition skilled nursing facility (03) | DRG 563 ==
LOC: ER 12-05 01:17 → ICU 12-05 01:21 → MEDSURG 12-05 16:45
PROVIDERS: Internal Medicine; Admitting Provider Family Medicine; Emergency Provider Nurse Practitioner; PCP Family Medicine; Visit Provider Student in an Organized Health Care Education/Training Program
DX: S82.845A Nondisplaced bimalleolar fracture of left lower leg, initial encounter for closed fracture (principal); I48.20 Chronic atrial fibrillation, unspecified; E23.0 Hypopituitarism; E24.9 Cushing's syndrome, unspecified; E27.40 Unspecified adrenocortical insufficiency; N17.9 Acute kidney failure, unspecified; W19.XXXA Unspecified fall, initial encounter; E11.9 Type 2 diabetes mellitus without complications; Z79.84 Long term (current) use of oral hypoglycemic drugs; I10 Essential (primary) hypertension; Z79.01 Long term (current) use of anticoagulants; I95.9 Hypotension, unspecified; E03.9 Hypothyroidism, unspecified; G89.29 Other chronic pain; M25.551 Pain in right hip; Z79.52 Long term (current) use of systemic steroids; Z96.0 Presence of urogenital implants; Z60.2 Problems related to living alone; Z91.81 History of falling
CPT/HCPCS: 36415; 36416; 51702; 51798; 70450; 71045; 73502; 73590; 73610; 73630; 73700; 74176; 76770; 80053; 80061; 80202; 81001; 82550; 82607; 82746; 82962; 83036; 83540; 83550; 83605; 83735; 83880; 84145; 84439; 84443; 84481; 84484; 85007; 85025; 86140; 87040; 87086; 87486; 87581; 87633; 93005; 93306; 94664; 96365; 96366; 96367; 96372; 96375; 96376; 97110; 97161; 97530; 99285; C9113; J0692; J1170; J1720; J1815; J1885; J2185; J3010; J3370; J3420; J3475; J7030; J7050; J7512

== ENCOUNTER → 2023-12-13 10:35 | Outpatient (BNVA) | payer MEDICARE, SELFPAY | PROVIDERS: PCP Family Medicine; Visit Provider Internal Medicine | DX: E23.7 Disorder of pituitary gland, unspecified; E03.9 Hypothyroidism, unspecified; M81.0 Age-related osteoporosis without current pathological fracture; E24.9 Cushing's syndrome, unspecified; I48.91 Unspecified atrial fibrillation; E11.649 Type 2 diabetes mellitus with hypoglycemia without coma; E11.59 Type 2 diabetes mellitus with other circulatory complications; I50.9 Heart failure, unspecified; Z79.84 Long term (current) use of oral hypoglycemic drugs; Z79.890 Hormone replacement therapy | CPT/HCPCS: 99204 ==

== ENCOUNTER → 2023-12-16 13:54 | Outpatient (BNVA) | payer MEDICARE, SELFPAY | PROVIDERS: PCP Family Medicine; Visit Provider Podiatrist Foot & Ankle Surgery | DX: S82.842D Displaced bimalleolar fracture of left lower leg, subsequent encounter for closed fracture with routine healing; X58.XXXD Exposure to other specified factors, subsequent encounter | CPT/HCPCS: 73610; 99213 ==

== ENCOUNTER → 2023-12-29 10:30 | Outpatient (BNVA) | payer MEDICARE, SELFPAY | PROVIDERS: PCP Family Medicine; Visit Provider Podiatrist Foot & Ankle Surgery | DX: S82.842D Displaced bimalleolar fracture of left lower leg, subsequent encounter for closed fracture with routine healing (principal); X58.XXXD Exposure to other specified factors, subsequent encounter | CPT/HCPCS: 73610; 99213 ==

== ENCOUNTER → 2024-01-12 15:50 | Outpatient (BNVA) | payer OTHER, SELFPAY | PROVIDERS: PCP Family Medicine; Visit Provider Podiatrist Foot & Ankle Surgery | DX: S82.842D Displaced bimalleolar fracture of left lower leg, subsequent encounter for closed fracture with routine healing (principal); X58.XXXD Exposure to other specified factors, subsequent encounter | CPT/HCPCS: 73610; 99213 ==

== ENCOUNTER 2024-02-15 12:55 | Outpatient (CLI) | payer OTHER, SELFPAY ==
--- NOTE | 2024-02-15 14:00 | XR_ITS ---
WS: [id number] DEXA (DUAL ENERGY X-RAY ABSORPTIOMETRY) Bone mineral density was performed using a [employer] machine. HISTORY: S82.842D - Displaced bimalleolar fracture of left lower l... COMPARISON: None available. Lumbar spine BMD (L1-L4): 1.177 g/cm2 T score: 0.0 Z score: 1.0 Total hip BMD: Left: 0.817 g/cm2. T score: -1.5 Z score: -0.5 Right: 0.761 g/cm2. T score: -2.0 Z score: -0.9 10 year probability of a major osteoporotic fracture is 45.8%. IMPRESSION: OSTEOPENIA based upon the WHO classification for females.
== END 2024-02-15 12:56 | disposition home or self-care (01) ==
LOC: RAD 12:55
PROVIDERS: PCP Family Medicine; Visit Provider Internal Medicine
DX: S82.842D Displaced bimalleolar fracture of left lower leg, subsequent encounter for closed fracture with routine healing (principal); M81.0 Age-related osteoporosis without current pathological fracture; X58.XXXD Exposure to other specified factors, subsequent encounter
CPT/HCPCS: 73610; 77080; 99213

== ENCOUNTER → 2024-02-17 11:56 | Outpatient (BNVA) | payer OTHER, SELFPAY | PROVIDERS: PCP Family Medicine; Visit Provider Internal Medicine | DX: E23.7 Disorder of pituitary gland, unspecified; E03.9 Hypothyroidism, unspecified; M81.0 Age-related osteoporosis without current pathological fracture; E24.9 Cushing's syndrome, unspecified; I48.91 Unspecified atrial fibrillation; E11.649 Type 2 diabetes mellitus with hypoglycemia without coma; Z79.84 Long term (current) use of oral hypoglycemic drugs; Z79.890 Hormone replacement therapy | CPT/HCPCS: 99214 ==

== ENCOUNTER 2024-02-25 15:46 | Emergency (ER) | payer OTHER, SELFPAY ==
[2024-02-25 15:51] VITALS: BP 173/114; PULSE 95; RESP 16; TEMP 36.7; O2SAT 98
--- NOTE | 2024-02-25 16:27 | ED_ITS ---
HPI - Recheck/Abnormal Lab/Rx 2 General: Chief Complaint: Recheck/Abnormal Lab/Rx Stated Complaint: sent by Cecy Cleaning , abnormal labs Time Seen by Provider: 02/25/24 16:09 History of Present Illness: 73-year-old female who presents to the e mergency room at the direction of her clinic for abnormal labs. They are concerned about a BUN and creatinine ratio and a magnesium of 0.9. Also her BUN was a little bit elevated over her baseline. She was not feeling any worse than normal. These were routine labs. She says she feels fine right now. Review of Systems 2 Narrative: Constitutional symptoms: Negative except as documented in HPI. Skin symptoms: Negative except as documented in HPI. Eye symptoms: Negative except as documented in HPI. ENMT symptoms: Negative except as documented in HPI. Respiratory symptoms: Negative except as documented in HPI. Cardiovascular symptoms: Negative except as documented in HPI. Gastrointestinal symptoms: Negative except as documented in HPI. Genitourinary symptoms: Negative except as documented in HPI. Musculoskeletal symptoms: Negative except as documented in HPI. Neurologic symptoms: Negative except as documented in HPI. Psychiatric symptoms: Negative except as documented in HPI. Endocrine symptoms: Negative except as documented in HPI. 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 Skin: warm and dry Head: Normocephalic Neck: Trachea midline Eye: Extraocular movements are intact. Ears, nose, mouth and throat: Oral mucosa moist Respiratory: Respirations are non-labored Musculoskeletal: Normal ROM Neurological: Alert and oriented to person, place, time, and situation, No focal neurological deficit observed. Psychiatric: Cooperative, appropriate mood & affect. Course 2 Vital Signs: Vital signs: Vital Signs Temperature 98.1 F 02/25/24 15:51 Pulse Rate 95 02/25/24 15:51 Respiratory Rate 16 02/25/24 15:51 Blood Pressure 173/114 02/25/24 15:51 Pulse Oximetry 98 02/25/24 15:51 Oxygen Delivery Me thod Room Air 02/25/24 15:51 MDM - Recheck/Abnormal Lab/Rx Medical Decision Making Medical decision making: Differential diagnosis including but not limited to and based on the above HPI, review of systems and physical exam: Repeating lab work. Orders placed to evaluate differential diagnosis based on the above differential, HPI and physical exam Lab Review: Laboratory results were reviewed and interpreted by myself the emergency room physician. BUN and creatinine are 45 and 1.1. BUN is slightly elevated over her usual. Creatinine is at her baseline. Magnesium is 0.9 so magnesium is being replaced. I reviewed the patient's medical record. Reexamination: Patient remained stable. No increased work of breathing. No altered mental status. No focal motor deficits. Lab Data 02/25/24 16:25 02/25/24 16:25 Laboratory Results WBC 15.68 10^3/uL (3.29-11.43) H 02/25/24 16:25 RBC 4.22 10^6/uL (3.85-5.65) 02/25/24 16:25 Hgb 12.10 g/dL (11.27-16.99) 02/25/24 16:25 Hct 38.9 % (36-47) 02/25/24 16:25 MCV 92.2 fl (85-98) 02/25/24 16:25 MCH 28.7 pg (27-33) 02/25/24 16:25 MCHC 31.1 g/dL (30-55) 02/25/24 16:25 RDW 16.5 % (12.1-15.1) H 02/25/24 16:25 Plt Count 458 10^3/cmm (157-399) H 02/25/24 16:25 MPV 9.9 fL (7.4-10.4) 02/25/24 16:25 Lymph % (Auto) Not Reportable 02/25/24 16:25 [place] % (Auto) Not Reportable 02/25/24 16:25 Lymph # (Auto) Not Reportable 02/25/24 16:25 [place] # (Auto) Not Reportable 02/25/24 16:25 Total Counted 100 (0-100) 02/25/24 16:25 Atypical Lymphs % 0.0 % (0-5) 02/25/24 16:25 Absolute Neutrophils 11.1 10^3/cmm (1.4-6.5) H 02/25/24 16:25 Segmented Neutrophils 67 % 02/25/24 16:25 Abs Segm Neuts (Man) 10.5 10/cmm (1.6-7.1) H 02/25/24 16:25 Band Neutrophils 4.0 % 02/25/24 16:25 Abs Band Neuts (Man) 0.6 10^3/cmm (0.0-1.2) 02/25/24 16:25 Absolute Lymphocytes 3.3 10^3/cmm (1.2-3.4) 02/25/24 16:25 Lymphocytes (Manual) 21 % 02/25/24 16:25 Monocytes (Manual) 1.0 % 02/25/24 16: Absolute Monocytes 0.2 10^3/cmm (0.1-0.6) 02/25/24 16:25 Eosinophils (Manual) 2 % 02/25/24 16: Absolute Eosinophils 0.3 10^3/cmm (0.0-0.7) 02/25/24 16: Basophils (Manual) 0.0 % 02/25/24 16: Absolute Basophils 0.0 10^3/cmm (0.0-0.2) 02/25/24 16:25 Metamyelocytes 1.0 % 02/25/24 16: Myelocytes 4.0 % 02/25/24 16:25 Nucleated RBCs 1.0 /100WBC (0-1) 02/25/24 16:25 Platelet Estimate Increased (Normal) H 02/25/24 16:25 Poikilocytosis 1+ H 02/25/24 16:25 Sodium 139 mmol/L (136-145) 02/25/24 16:25 Potassium 4.0 mmol/L (3.5-5.1) 02/25/24 16:25 Chloride 103 mmol/L (98-107) 02/25/24 16:25 Carbon Dioxide 19 mmol/L (22-29) L 02/25/24 16:25 Anion Gap 21.0 (5-19) H 02/25/24 16:25 BUN 45 mg/dL (8-23) H 02/25/24 16:25 Creatinine 1.1 mg/dL (0.5-0.9) H 02/25/24 16:25 GFR Calculation Not Reportable 02/25/24 16:25 Glucose 149 mg/dL (65-115) H 02/25/24 16:25 Calculated Osmolality 302 mOsm/kg (285-295) H 02/25/24 16:25 Calcium 8.9 mg/dL (8.5-10.5) 02/25/24 16:25 Magnesium 0.9 mg/dL (1.7-2.3) L 02/25/24 16:25 Total Bilirubin 0.3 mg/dL (0.15-1.2) 02/25/24 16:25 AST 20 U/L (0-32) 02/25/24 16:25 ALT 14 U/L (0-33) 02/25/24 16:25 Alkaline Phosphatase 117 U/L (35-105) H 02/25/24 16:25 Total Protein 7.6 g/dL (6.6-8.7) 02/25/24 16:25 Albumin 4.0 g/dL (3.5-5.2) 02/25/24 16:25 Globulin 3.6 g/dL (1.3-4.6) 02/25/24 16:25 No radiology studies performed this visit Other Data Assessment and plan: Hypomagnesemia Dehydration -Normal saline bolus and 2 g IV magnesium. - Discharged home - Discussed findings and plan with patient. Answered any questions. - All laboratory values were reviewed and interpreted personally by myself, the ER physician - Evaluation and treatment of this problem were appropriate in the emergency setting Discharge Plan Discharge Patient Disposition: Home Clinical Impression: Hypomagnesemia, Dehydration Condition: Stable Prescriptions: No Action metoprolol tartrate 50 mg tablet 50 mg PO BID Qty: 180 3RF acetaminophen [Tylenol] 325 mg tablet 325 mg PO QID PRN (Reason: Pain) atorvastatin 40 mg tablet 40 mg PO QPM prednisone 5 mg tablet See Rx Instructions .ROUTE .COMPLEX Rx Instructions: take 1 tab at 0600, and 1/2 tab at 1800 metformin 1,000 mg tablet 1,000 mg PO BID@0600,1800 Eliquis 5 mg tablet 5 mg PO BID@0600,1800 fenofibrate nanocrystallized 48 mg tablet 48 mg PO DAILY Vitamin D3 25 mcg (1,000 unit) Tablet 25 mcg PO DAILY potassium citrate 10 mEq (1,080 mg) tablet extended release 10 meq PO BID Ferrex 150 150 mg iron Capsule 150 mg PO BIDWM Qty: 60 0RF tramadol 50 mg Tablet 50 mg PO Q6H PRN (Reason: Moderate Pain) Qty: 14 0RF cyanocobalamin (vitamin B-12) 1,000 mcg capsule 1,000 mcg PO DAILY Qty: 60 0RF glipizide 5 mg tablet extended release 24hr 10 mg PO QPM Qty: 60 0RF Rx Instructions: take daily with breakfast Discharge Orders: Discharge ED (Routine); Ordered 02/25/24 Ordered By: Janneth Martin Referrals: Cecy Cleaning FNP [Primary Care Provider] - (You have been screened and evaluated and felt safe for discharge. Health conditions do change or evolve sometimes and as such it is important that you follow up with your Primary Doctor to be re checked, 3-5 days is a general good time frame for follow up. You are always welcome to return to the ED for re assessment if your symptoms are worsening or you have new concerns) Discharge Diet: Usual diet Discharge Activity: Resume usual activity Patient Instructions: Opioid Safety, Pain Management Coding Level of Care Code ED [employer] Service Director for [facility]
[2024-02-25 16:34] LABS: Hematocrit 38.9 % (36-47); Mean Corpuscular HGB Conc 31.1 g/dL (30-55); Mean Corpuscular Hemoglobin 28.7 pg (27-33); Mean Corpuscular Volume 92.2 fl (85-98); Mean Platelet Volume 9.9 fL (7.4-10.4); Platelet Count 458 10^3/cmm (157-399); Red Blood Count 4.22 10^6/uL (3.85-5.65); Red Cell Distribution Width 16.5 % (12.1-15.1); White Blood Count 15.68 10^3/uL (3.29-11.43)
[2024-02-25 16:53] LABS: Alanine Aminotransferase 14 U/L (0-33); Alkaline Phosphatase 117 U/L (35-105); Aspartate Amino Transferase 20 U/L (0-32); Blood Urea Nitrogen 45 mg/dL (8-23); Calcium 8.9 mg/dL (8.5-10.5); Carbon Dioxide 19 mmol/L (22-29); Chloride 103 mmol/L (98-107); Creatinine Clr Calc Pharmacy 48.5663; Globulin 3.6 g/dL (1.3-4.6); Glucose 149 mg/dL (65-115); Osmolality Calculated 302 mOsm/kg (285-295); Sodium 139 mmol/L (136-145); Total Bilirubin 0.3 mg/dL (0.15-1.2); Total Protein 7.6 g/dL (6.6-8.7)
[2024-02-25 16:54] LABS: Magnesium 0.9 mg/dL (1.7-2.3)
[2024-02-25 17:16] LABS: Slide Review Slide Review Perform
[2024-02-25 17:19] LABS: Absolute Eosinophils 0.3 10^3/cmm (0.0-0.7); Absolute Neutrophil 11.1 10^3/cmm (1.4-6.5); Absolute Segmented Neutrophil 10.5 10/cmm (1.6-7.1); Band Neutrophils Absolute 0.6 10^3/cmm (0.0-1.2); Eosinophils 2 %; Lymphocytes 21 %; Monocytes Absolute 0.2 10^3/cmm (0.1-0.6); Platelet Estimate Increased (Normal); Poikilocytosis 1+; Segmented Neutrophils 67 %; Total Cells Counted 100 (0-100)
[2024-02-25 17:20] LABS: Lymphocytes Absolute 3.3 10^3/cmm (1.2-3.4)
[2024-02-25] MEDS: magnesium sulfate premix 2 GM/50 ML PIGGYBACK IV (17:22)
[2024-02-25] MEDS: sodium chloride 0.9% 1,000 ML 999 ML IV (17:22)
[2024-02-25 17:25] VITALS: BP 143/109; PULSE 82; O2SAT 94
[2024-02-25 18:03] VITALS: BP 155/83; PULSE 88; O2SAT 91
== END 2024-02-25 18:45 | disposition home or self-care (01) ==
PROVIDERS: Emergency Provider Emergency Medicine; PCP Nurse Practitioner Family
DX: E83.42 Hypomagnesemia (principal); E86.0 Dehydration; Z79.01 Long term (current) use of anticoagulants; Z79.84 Long term (current) use of oral hypoglycemic drugs; E11.9 Type 2 diabetes mellitus without complications; I10 Essential (primary) hypertension
CPT/HCPCS: 80053; 83735; 85007; 85025; 96374; 99284; J3475; J7030

== ENCOUNTER → 2024-03-06 14:48 | Outpatient (BNVA) | payer OTHER, SELFPAY | PROVIDERS: PCP Nurse Practitioner Family; Visit Provider Podiatrist Foot & Ankle Surgery | DX: S82.842D Displaced bimalleolar fracture of left lower leg, subsequent encounter for closed fracture with routine healing (principal); X58.XXXD Exposure to other specified factors, subsequent encounter; Z79.84 Long term (current) use of oral hypoglycemic drugs; E11.69 Type 2 diabetes mellitus with other specified complication | CPT/HCPCS: 73610; 99213 ==

== ENCOUNTER → 2024-03-28 15:05 | Outpatient (BNVA) | payer OTHER, SELFPAY | PROVIDERS: PCP Nurse Practitioner Family; Visit Provider Podiatrist Foot & Ankle Surgery | DX: S82.842D Displaced bimalleolar fracture of left lower leg, subsequent encounter for closed fracture with routine healing (principal); E11.69 Type 2 diabetes mellitus with other specified complication; Z79.84 Long term (current) use of oral hypoglycemic drugs; X58.XXXD Exposure to other specified factors, subsequent encounter | CPT/HCPCS: 73610; 99213 ==

== ENCOUNTER 2024-03-28 16:38 | Outpatient (CLI) | payer OTHER, SELFPAY | END 2024-03-28 16:39 | disposition home or self-care (01) | LOC: SPT 16:39 | PROVIDERS: PCP Nurse Practitioner Family; Visit Provider Podiatrist Foot & Ankle Surgery | DX: Z46.89 Encounter for fitting and adjustment of other specified devices (principal); S82.842D Displaced bimalleolar fracture of left lower leg, subsequent encounter for closed fracture with routine healing; X58.XXXD Exposure to other specified factors, subsequent encounter | CPT/HCPCS: 97760; L1902 ==

== ENCOUNTER → 2024-08-14 13:52 | Outpatient (BNVA) | payer OTHER, SELFPAY | PROVIDERS: PCP Nurse Practitioner Family; Visit Provider Internal Medicine | DX: E11.69 Type 2 diabetes mellitus with other specified complication (principal); E23.7 Disorder of pituitary gland, unspecified; M81.0 Age-related osteoporosis without current pathological fracture; E03.9 Hypothyroidism, unspecified; E11.649 Type 2 diabetes mellitus with hypoglycemia without coma; R79.0 Abnormal level of blood mineral; Z79.84 Long term (current) use of oral hypoglycemic drugs; Z79.890 Hormone replacement therapy | CPT/HCPCS: 36415; 80053; 80061; 82044; 82306; 82310; 83036; 83735; 83970; 84439; 84443; 99214 ==

== ENCOUNTER 2024-08-30 08:59 | Oncology outpatient (recurring) (ONCR) | payer OTHER, SELFPAY ==
[2024-08-30] MEDS: denosumab 60 mg SDV SUBCUT (10:18)
[2024-08-30 10:23] VITALS: BP 141/81; PULSE 76; RESP 16; TEMP 36.8; O2SAT 98
== END 2024-08-31 23:59 | disposition home or self-care (01) ==
LOC: ONCMED 09:00
PROVIDERS: PCP Nurse Practitioner Family; Visit Provider Internal Medicine
DX: M81.0 Age-related osteoporosis without current pathological fracture (principal); Z79.899 Other long term (current) drug therapy
CPT/HCPCS: 96372; J0897

== ENCOUNTER 2025-01-29 07:55 | Outpatient (CLI) | payer MEDICARE, SELFPAY ==
[2025-01-29 09:13] LABS: Estmated Average Glucose 209; Hemoglobin A1C 8.9 % (4.0-6.0)
[2025-01-29 09:16] LABS: Creatinine Urine, Random 22 mg/dL (28-217); Microalbumin Random Urine 37 ug/dL (0-20)
[2025-01-29 09:18] LABS: Microalbum Creatinine Ratio Ur 1682 mg/dL (0-20)
[2025-01-29 09:20] LABS: Alanine Aminotransferase 30 U/L (0-33); Albumin Level 4.3 g/dL (3.5-5.2); Alkaline Phosphatase 100 U/L (35-105); Blood Urea Nitrogen 41 mg/dL (8-23); Carbon Dioxide 22 mmol/L (22-29); Chloride 97 mmol/L (98-107); Chol HDL Ratio 5.52 mg/dL (0.0-4.40); Cholesterol 254 mg/dL (0-200); Globulin 3.8 g/dL (1.3-4.6); Glucose 179 mg/dL (65-115); HDL Cholesterol 46 mg/dL (60-100); Magnesium 1.6 mg/dL (1.7-2.3); Osmolality Calculated 301 mOsm/kg (285-295); Sodium 138 mmol/L (136-145); Total Bilirubin 0.5 mg/dL (0.15-1.2); Total Protein 8.1 g/dL (6.6-8.7); Triglycerides 573 mg/dL (0-150)
[2025-01-29 09:25] LABS: Free T4 Free Thyroxine 0.88 ng/dL (0.82-1.77)
[2025-01-29 09:26] LABS: Anion Gap 23.4 (5-19); Aspartate Amino Transferase 26 U/L (0-32); Potassium 4.4 mmol/L (3.5-5.1)
[2025-01-29 09:41] LABS: LDL Cholesterol Direct 105 mg/dL (0-100)
== END 2025-01-29 07:56 | disposition home or self-care (01) ==
LOC: LAB 07:58
PROVIDERS: PCP Nurse Practitioner Family; Visit Provider Internal Medicine
DX: E11.69 Type 2 diabetes mellitus with other specified complication (principal); E23.7 Disorder of pituitary gland, unspecified; M81.0 Age-related osteoporosis without current pathological fracture; E03.9 Hypothyroidism, unspecified
CPT/HCPCS: 80053; 80061; 82044; 83036; 83721; 83735; 84439

== ENCOUNTER → 2025-01-31 10:56 | Outpatient (BNVA) | payer MEDICARE, SELFPAY | PROVIDERS: PCP Nurse Practitioner Family; Visit Provider Internal Medicine | DX: E11.69 Type 2 diabetes mellitus with other specified complication (principal); E23.7 Disorder of pituitary gland, unspecified; E03.9 Hypothyroidism, unspecified; E16.2 Hypoglycemia, unspecified; M81.0 Age-related osteoporosis without current pathological fracture | CPT/HCPCS: 99214 ==

== ENCOUNTER 2025-04-24 07:52 | Outpatient (CLI) | payer MEDICARE, SELFPAY ==
[2025-04-24 08:47] LABS: Estmated Average Glucose 203; Hemoglobin A1C 8.7 % (4.0-6.0)
[2025-04-24 08:59] LABS: Alanine Aminotransferase 14 U/L (0-33); Alkaline Phosphatase 82 U/L (35-105); Anion Gap 21.3 (5-19); Aspartate Amino Transferase 19 U/L (0-32); Blood Urea Nitrogen 34 mg/dL (8-23); Calcium 10.1 mg/dL (8.5-10.5); Carbon Dioxide 24 mmol/L (22-29); Chloride 97 mmol/L (98-107); Chol HDL Ratio 3.77 mg/dL (0.0-4.40); Cholesterol 166 mg/dL (0-200); Globulin 3.6 g/dL (1.3-4.6); Glucose 148 mg/dL (65-115); HDL Cholesterol 44 mg/dL (60-100); LDL Cholesterol Calculated 49 mg/dL (50-129); LDL HDL Ratio 1.11 RATIO (0.00-3.22); Osmolality Calculated 296 mOsm/kg (285-295); Potassium 4.3 mmol/L (3.5-5.1); Sodium 138 mmol/L (136-145); Total Bilirubin 0.5 mg/dL (0.15-1.2); Total Protein 7.6 g/dL (6.6-8.7); Triglycerides 365 mg/dL (0-150)
[2025-04-24 09:09] LABS: 25 Hydroxy Vitamin D 43 ng/mL (30-100)
[2025-04-24 09:21] LABS: Creatinine Urine, Random 72 mg/dL (28-217)
[2025-04-24 09:24] LABS: Free T4 Free Thyroxine 0.81 ng/dL (0.82-1.77)
[2025-04-24 09:35] LABS: Microalbum Creatinine Ratio Ur 694 mg/dL (0-20); Microalbumin Random Urine 50 ug/dL (0-20)
== END 2025-04-24 07:53 | disposition home or self-care (01) ==
PROVIDERS: PCP Nurse Practitioner Family; Visit Provider Internal Medicine
DX: M81.0 Age-related osteoporosis without current pathological fracture (principal); E11.69 Type 2 diabetes mellitus with other specified complication; E23.7 Disorder of pituitary gland, unspecified; E03.9 Hypothyroidism, unspecified; R79.0 Abnormal level of blood mineral
CPT/HCPCS: 36415; 80053; 80061; 82044; 82306; 83036; 84439

== ENCOUNTER → 2025-05-02 09:48 | Outpatient (BNVA) | payer MEDICARE, SELFPAY | PROVIDERS: PCP Nurse Practitioner Family; Visit Provider Internal Medicine | DX: E11.69 Type 2 diabetes mellitus with other specified complication (principal); E03.9 Hypothyroidism, unspecified; E23.7 Disorder of pituitary gland, unspecified; E16.2 Hypoglycemia, unspecified; M81.0 Age-related osteoporosis without current pathological fracture | CPT/HCPCS: 99214 ==

== ENCOUNTER 2025-05-25 09:06 | Oncology outpatient (recurring) (ONCR) | payer MEDICARE, SELFPAY ==
[2025-05-25] MEDS: denosumab 60 mg SDV SUBCUT (09:54)
[2025-05-25 10:30] LABS: Free T4 Free Thyroxine 0.72 ng/dL (0.82-1.77)
== END 2025-05-31 23:59 | disposition home or self-care (01) ==
PROVIDERS: PCP Nurse Practitioner Family; Visit Provider Internal Medicine
DX: E11.69 Type 2 diabetes mellitus with other specified complication (principal)
CPT/HCPCS: 36415; 84439; 96372; J0897

== ENCOUNTER 2025-07-25 09:54 | Outpatient (CLI) | payer MEDICARE, SELFPAY ==
[2025-07-25 12:10] LABS: Estmated Average Glucose 180; Hemoglobin A1C 7.9 % (4.0-6.0)
[2025-07-25 12:21] LABS: Creatinine Urine, Random 62 mg/dL (28-217)
[2025-07-25 12:25] LABS: Microalbum Creatinine Ratio Ur 435 mg/dL (0-20)
[2025-07-25 12:41] LABS: Alanine Aminotransferase 19 U/L (0-33); Albumin Level 4.0 g/dL (3.5-5.2); Alkaline Phosphatase 69 U/L (35-105); Anion Gap 17.5 (5-19); Aspartate Amino Transferase 14 U/L (0-32); Blood Urea Nitrogen 32 mg/dL (8-23); Calcium 9.6 mg/dL (8.5-10.5); Carbon Dioxide 25 mmol/L (22-29); Chloride 101 mmol/L (98-107); Cholesterol 183 mg/dL (0-200); Globulin 2.9 g/dL (1.3-4.6); Glucose 149 mg/dL (65-115); HDL Cholesterol 42 mg/dL (60-100); Osmolality Calculated 298 mOsm/kg (285-295); Potassium 4.5 mmol/L (3.5-5.1); Sodium 139 mmol/L (136-145); Total Protein 6.9 g/dL (6.6-8.7); Triglycerides 506 mg/dL (0-150)
[2025-07-25 16:33] LABS: Free T4 Free Thyroxine 1.02 ng/dL (0.82-1.77)
== END 2025-07-25 09:55 | disposition home or self-care (01) ==
PROVIDERS: PCP Nurse Practitioner Family; Visit Provider Internal Medicine
DX: E11.69 Type 2 diabetes mellitus with other specified complication (principal); E03.9 Hypothyroidism, unspecified; M81.0 Age-related osteoporosis without current pathological fracture
CPT/HCPCS: 36415; 80053; 80061; 82044; 82306; 83036; 83721; 84439

== ENCOUNTER → 2025-08-01 12:30 | Outpatient (BNVA) | payer MEDICARE, SELFPAY | PROVIDERS: PCP Nurse Practitioner Family; Visit Provider Internal Medicine | DX: E11.649 Type 2 diabetes mellitus with hypoglycemia without coma (principal); E23.7 Disorder of pituitary gland, unspecified; E03.9 Hypothyroidism, unspecified; M81.0 Age-related osteoporosis without current pathological fracture; R79.0 Abnormal level of blood mineral; Z79.85 Long-term (current) use of injectable non-insulin antidiabetic drugs; Z79.84 Long term (current) use of oral hypoglycemic drugs | CPT/HCPCS: 99214 ==